=== PATIENT | female | born 1995 | race African-American/Black ===

== ENCOUNTER 2019-04-09 22:38 | Emergency (ER) | payer BC, OTHER ==
[2019-04-09] MEDS ORDERED: SODIUM CHLORIDE 0.9% 1,000 ML IV STA (22:55)
[2019-04-09 23:26] LABS: Basophils % (A) 0 %; Eosinophils # (A) 0.1 k/uL (0-0.7); Eosinophils % (A) 3 %; HCT 38.2 % (34.0-46.0); HGB 12.5 gm/dL (11.4-16.0); Lymphocytes # (A) 2.5 k/uL (1.0-4.8); Lymphocytes % (A) 48 %; MCHC 32.7 g/dL (31.0-37.0); MCV 91.6 fL (80.0-100.0); Mean Platelet Volume 8.6; Monocytes # (A) 0.3 k/uL (0-1.0); Monocytes % (A) 6 %; Neutrophils # (A) 2.2 k/uL (1.3-7.7); Neutrophils % (A) 41 %; Platelet Count 239 k/uL (150-450); RBC 4.17 m/uL (3.80-5.40); WBC 5.3 k/uL (3.8-10.6)
[2019-04-09] MEDS ORDERED: IBUPROFEN 600 MG TAB PO STA (23:33)
[2019-04-09] MEDS ORDERED: ONDANSETRON 4 MG/2 ML VIAL IVP STA (23:33)
[2019-04-09 23:34] LABS: ALT 11 U/L (9-52); AST 16 U/L (14-36); Alkaline Phosphatase 58 U/L (38-126); Anion Gap 6 mmol/L; Blood Urea Nitrogen 9 mg/dL (7-17); Calcium 9.2 mg/dL (8.4-10.2); Carbon Dioxide 24 mmol/L (22-30); Chloride 111 mmol/L (98-107); Glucose 83 mg/dL (74-99); Lipase 54 U/L (23-300); Potassium 3.9 mmol/L (3.5-5.1); Sodium 141 mmol/L (137-145); Total Bilirubin 0.4 mg/dL (0.2-1.3)
[2019-04-09 23:50] LABS: Appearance,Urine Cloudy (Clear); Bacteria,Urine Occasional /hpf; Bilirubin,Urine Negative (Negative); Blood,Urine Negative (Negative); Color,Urine Yellow; Glucose,Urine (UA) Negative (Negative); Ketones,Urine Negative (Negative); Leukocyte Esterase,Urine Moderate (Negative); Mucus,Urine Moderate /hpf; Nitrite,Urine Positive (Negative); PH, Urine 6.5 (5.0-8.0); Protein,Urine Negative (Negative); RBC,Urine 1 /hpf (0-5); Specific Gravity,Urine 1.019 (1.001-1.035); Squamous Epithelial Cell,Urine 8 /hpf (0-4); WBC,Urine 12 /hpf (0-5)
--- NOTE | 2019-04-10 00:17 | CT ---
EXAM: CT Abdomen and Pelvis With Intravenous Contrast CLINICAL HISTORY: ITS.REASON CT Reason: Pain TECHNIQUE: Axial computed tomography images of the abdomen and pelvis with intravenous contrast. This CT exam was performed using one or more of the following dose reduction techniques: automated exposure control, adjustment of the mA and/or kV according to patient size, and/or use of iterative reconstruction technique. COMPARISON: No relevant prior studies available. FINDINGS: Lung bases: Unremarkable. No mass. No consolidation. ABDOMEN: Liver: Unremarkable. No mass. Gallbladder and bile ducts: No abnormal ductal dilation or stones. Pancreas: Unremarkable. No mass. No ductal dilation. Spleen: Unremarkable. No splenomegaly. Adrenals: Unremarkable. No mass. Kidneys and ureters: Unremarkable. No solid mass. No hydronephrosis. Stomach and bowel: No obstruction. No mucosal thickening. PELVIS: Appendix: No findings to suggest acute appendicitis. Bladder: Unremarkable. No mass. Reproductive: Involuted left ovarian corpus luteum cyst measuring 2 cm. 2 additional left ovarian cysts appear to be present measuring 3 cm each. ABDOMEN and PELVIS: Intraperitoneal space: Mild free fluid in the pelvis. No free air. Bones/joints: No acute fracture. No dislocation. Soft tissues: Unremarkable. Vasculature: No abdominal aortic aneurysm. Lymph nodes: Unremarkable. No enlarged lymph nodes. IMPRESSION: 1. Involuted left ovarian corpus luteum cyst measuring 2 cm. 2 additional left ovarian cysts appear to be present measuring 3 cm each. 2. Mild free fluid in the pelvis.
--- NOTE | 2019-04-10 01:13 | ED ---
General Adult HPI - General Source: patient, RN notes reviewed, old records reviewed Mode of arrival: ambulatory Limitations: no limitations <Dc Petersen - Last Filed: 04/10/19 02:01> <Davida Ayers - Last Filed: 04/10/19 02:40> - General Chief complaint: Abdominal Pain Stated complaint: Abdominal Pain, vomiting Time Seen by Provider: 04/09/19 22:55 - History of Present Illness Initial comments: 24-year-old female patient with no pertinent past medical history presents ED 3 days of waxing and waning nausea vomiting diarrhea as well as lower quadrant abdominal pain. Patient denies any chest pain shortness of breath. Patient states that she does not believe that she is . Patient denies any other complaints at this time. Systemic: Pt denies fatigue, fever/chills, rash. Pt denies weakness, night sweats, weight loss. Neuro: Pt denies headache, visual disturbances, syncope or pre-syncope. HEENT: Pt denies ocular discharge or irritation, otalgia, rhinorrhea, pharyngitis or notable lymphadenopathy. Cardiopulmonary: Pt denies chest pain, SOB, heart palpitations, dyspnea on exertion. : Pt denies dysuria, burning w/ urination, frequency/urgency. Denies new onset urinary or bowel incontinence. MSK: Pt denies myalgia, loss of strength or function in extremities. Neuro: Pt denies new onset weakness, paresthesias. (Dc Petersen) - Related Data Previous Rx's Medication Instructions Recorded Cephalexin [Keflex] 500 mg PO Q12HR 10 Days cap 04/10/19 Allergies Allergy/AdvReac Type Severity Reaction Status Date / Time No Known Allergies Allergy Verified 04/09/19 23:14 Review of Systems ROS Other: All systems not noted in ROS Statement are negative. <Dc Petersen - Last Filed: 04/10/19 02:01> ROS Other: All systems not noted in ROS Statement are negative. <Davida Ayers - Last Filed: 04/10/19 02:40> ROS Statement: Those systems with pertinent positive or pertinent negative responses have been documented in the HPI. Past Medical History Past Medical History: No Reported History Additional Past Medical History / Comment(s): back pain History of Any Multi-Drug Resistant Organisms: None Reported Past Surgical History: No Surgical Hx Reported Past Psychological History: No Psychological Hx Reported Smoking Status: Never smoker Past Alcohol Use History: Rare Past Drug Use History: None Reported <Dc Petersen - Last Filed: 04/10/19 02:01> General Exam Limitations: no limitations <Dc Petersen - Last Filed: 04/10/19 02:01> - General Exam Comments Initial Comments: Constitutional: NAD, AOX3, Pt has pleasant affect. HEENT: NC/AT, trachea midline, neck supple, no lymphadenopathy. Posterior pharynx non erythematous, without exudates. External ears appear normal, without discharge. Mucous membranes moist. Eyes PERRLA, EOM intact. There is no scleral icterus. No pallor noted. Cardiopulmonary: RRR, no murmurs, rubs or gallops, no JVD noted. Lungs CTAB in anterior and posterior sandoval. No peripheral edema. Abdominal exam: Abdomen soft and non-distended. Abdomen mildly tender to palpation in right lower quadrant, left lower quadrant, suprapubic region. No other areas of abdominal tenderness. No guarding or rigidity. Bowel sounds active in LLQ. No hepatosplenomegaly. No ecchymosis Neuro: CN II-XII grossly intact. No nuchal rigidity. No raccon eyes, no barry sign, no hemotympanum. No cervical spinal tenderness. MSK: No posterior calf tenderness bilaterally, homans sign negative bilaterally. Posterior tibialis and radial pulse +2 bilaterally. Sensation intact in upper and lower extremities. Full active ROM in upper and lower extremities, 5/5 stregnth. (Dc Petersen) Course Vital Signs 04/09/19 04/10/19 04/10/19 22:51 00:53 02:01 Temperature 98.6 F 98.5 F Pulse Rate 62 48 L 62 Respiratory 18 16 18 Rate Blood Pressure 95/63 110/72 99/60 O2 Sat by Pulse 100 99 100 Oximetry Medical Decision Making - Lab Data Result diagrams: 04/09/19 23:09 04/09/19 23:09 <Dc Petersen - Last Filed: 04/10/19 02:01> - Lab Data Result diagrams: 04/09/19 23:09 04/09/19 23:09 <Davida Ayers - Last Filed: 04/10/19 02:40> - Medical Decision Making 24-year-old female patient with no pertinent past medical history presents ED 3 days of waxing and waning nausea vomiting diarrhea as well as lower quadrant abdominal pain. Patient denies any chest pain shortness of breath. Patient states that she does not believe that she is . Patient denies any other complaints at this time. Patient vital signs stable, afebrile. Physical exam displayed mild tenderness to palpation in right lower quadrant, left lower quadrant tenderness, suprapubic region. No other acute pathology identified. Laboratory investigations reveal nonspecific CBC, CMP. Lactic acid negative. Lipase within normal limits. UA displayed positive nitrate, positive luekocyte eterase, 12 wbc, 8 squamous. HCG negative. Will treat for possible UTI. CT abdomen pelvis displayed included left ovarian corpus luteum cyst measuring 2 cm, 2 additional to ovarian cyst appear to be present moderate increase in 3cm each. Mild free fluid in pelvis. Transvaginal ultrasound displayed left ovarian cysts measuring 3.1 cm, 2.7 cm, mild free fluid. Normal blood flow to ovarias bilaterally. Possible etiology of pain may be a ruptured ovarian cyst. Patient will be discharged with prescription for Keflex. 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 Patient will return to ER condition worsens in any way. Case discussed with Dr. Ayers. (Dc Petersen) I was available for consultation in the emergency department. The history and physical exam were done by the midlevel provider. I was consulted for this patient's care. I reviewed the case with the midlevel provider and based on their presentation of the patient, I agree with the assessment, medical decision making and plan of care as documented. Chart was dictated using [email or web address] dictation software. Attempts were made to correct any dictation errors however some typographical errors may persist. (Davida Ayers) - Lab Data Lab Results 04/09/19 04/09/19 04/09/19 Range/Units 23:09 23:09 23:09 WBC 5.3 (3.8-10.6) k/uL RBC 4.17 (3.80-5.40) m/uL Hgb 12.5 (11.4-16.0) gm/dL Hct 38.2 (34.0-46.0) % MCV 91.6 (80.0-100.0) fL MCH 30.0 (25.0-35.0) pg MCHC 32.7 (31.0-37.0) g/dL RDW 14.0 (11.5-15.5) % Plt Count 239 (150-450) k/uL Neutrophils % 41 % Lymphocytes % 48 % Monocytes % 6 % Eosinophils % 3 % Basophils % 0 % Neutrophils # 2.2 (1.3-7.7) k/uL Lymphocytes # 2.5 (1.0-4.8) k/uL Monocytes # 0.3 (0-1.0) k/uL Eosinophils # 0.1 (0-0.7) k/uL Basophils # 0.0 (0-0.2) k/uL Sodium 141 (137-145) mmol/L Potassium 3.9 (3.5-5.1) mmol/L Chloride 111 H (98-107) mmol/L Carbon Dioxide 24 (22-30) mmol/L Anion Gap 6 mmol/L BUN 9 (7-17) mg/dL Creatinine 0.61 (0.52-1.04) mg/dL Est GFR (CKD-EPI)AfAm >90 (>60 ml/min/1.73 sqM) Est GFR (CKD-EPI)NonAf >90 (>60 ml/min/1.73 sqM) Glucose 83 (74-99) mg/dL Plasma Lactic Acid Oc <0.5 L (0.7-2.0) mmol/L Calcium 9.2 (8.4-10.2) mg/dL Total Bilirubin 0.4 (0.2-1.3) mg/dL AST 16 (14-36) U/L ALT 11 (9-52) U/L Alkaline Phosphatase 58 (38-126) U/L Total Protein 7.0 (6.3-8.2) g/dL Albumin 4.0 (3.5-5.0) g/dL Lipase 54 (23-300) U/L Urine Color Urine Appearance (Clear) Urine pH (5.0-8.0) Ur Specific [place] (1.001-1.035) Urine Protein (Negative) Urine Glucose (UA) (Negative) Urine Ketones (Negative) Urine Blood (Negative) Urine Nitrite (Negative) Urine Bilirubin (Negative) Urine Urobilinogen (<2.0) mg/dL Ur Leukocyte Esterase (Negative) Urine RBC (0-5) /hpf Urine WBC (0-5) /hpf Ur Squamous Epith Cells (0-4) /hpf Urine Bacteria (None) /hpf Urine Mucus (None) /hpf Urine HCG, Qual (Not Detectd) 04/09/19 04/09/19 Range/Units 23:30 23:30 WBC (3.8-10.6) k/uL RBC (3.80-5.40) m/uL Hgb (11.4-16.0) gm/dL Hct (34.0-46.0) % MCV (80.0-100.0) fL MCH (25.0-35.0) pg MCHC (31.0-37.0) g/dL RDW (11.5-15.5) % Plt Count (150-450) k/uL Neutrophils % % Lymphocytes % % Monocytes % % Eosinophils % % Basophils % % Neutrophils # (1.3-7.7) k/uL Lymphocytes # (1.0-4.8) k/uL Monocytes # (0-1.0) k/uL Eosinophils # (0-0.7) k/uL Basophils # (0-0.2) k/uL Sodium (137-145) mmol/L Potassium (3.5-5.1) mmol/L Chloride (98-107) mmol/L Carbon Dioxide (22-30) mmol/L Anion Gap mmol/L BUN (7-17) mg/dL Creatinine (0.52-1.04) mg/dL Est GFR (CKD-EPI)AfAm (>60 ml/min/1.73 sqM) Est GFR (CKD-EPI)NonAf (>60 ml/min/1.73 sqM) Glucose (74-99) mg/dL Plasma Lactic Acid Oc (0.7-2.0) mmol/L Calcium (8.4-10.2) mg/dL Total Bilirubin (0.2-1.3) mg/dL AST (14-36) U/L ALT (9-52) U/L Alkaline Phosphatase (38-126) U/L Total Protein (6.3-8.2) g/dL Albumin (3.5-5.0) g/dL Lipase (23-300) U/L Urine Color Yellow Urine Appearance Cloudy H (Clear) Urine pH 6.5 (5.0-8.0) Ur Specific [place] 1.019 (1.001-1.035) Urine Protein Negative (Negative) Urine Glucose (UA) Negative (Negative) Urine Ketones Negative (Negative) Urine Blood Negative (Negative) Urine Nitrite Positive H (Negative) Urine Bilirubin Negative (Negative) Urine Urobilinogen 2.0 (<2.0) mg/dL Ur Leukocyte Esterase Moderate H (Negative) Urine RBC 1 (0-5) /hpf Urine WBC 12 H (0-5) /hpf Ur Squamous Epith Cells 8 H (0-4) /hpf Urine Bacteria Occasional H (None) /hpf Urine Mucus Moderate H (None) /hpf Urine HCG, Qual Not Detected (Not Detectd) Disposition Is patient prescribed a controlled substance at d/c from ED?: No <Dc Petersen - Last Filed: 04/10/19 02:01> <Davida Ayers - Last Filed: 04/10/19 02:40> Clinical Impression: UTI (urinary tract infection), Ovarian cyst Disposition: HOME SELF-CARE Condition: Stable Instructions (If sedation given, give patient instructions): Ovarian Cyst (ED), Urinary Tract Infection in Women (ED) Additional Instructions: Patient to adhere to previously discussed treatment plan and will take medication(s) as directed. Patient to follow up with PCP in 1-2 days. Patient to return to ED if symptoms do not improve. Take Medication as directed. Follow up with primary care provider and airport representative in 1-2 days. Return to ER if condition worsens in anyway. Prescriptions: Cephalexin [Keflex] 500 mg PO Q12HR 10 Days cap Referrals: Anaya Gaffney MD [Primary Care Provider] - 1-2 days
--- NOTE | 2019-04-10 01:27 | US ---
EXAM: US Pelvis, Transvaginal CLINICAL HISTORY: ITS.REASON US Reason: pain TECHNIQUE: Real-time transvaginal pelvic ultrasound (complete) with image documentation. Transvaginal imaging was used for better evaluation of the endometrium and adnexa. COMPARISON: No relevant prior studies available. FINDINGS: Uterus/cervix: Unremarkable. Normal endometrial stripe thickness. No myometrial mass. Right ovary: Unremarkable. No mass. Normal blood flow. Left ovary: Left ovarian cysts measuring 3.1 and 2.7 cm. Normal blood flow. Free fluid: Mild free fluid. Bladder: Empty bladder which cannot be evaluated with this probe. IMPRESSION: 1. Left ovarian cysts measuring 3.1 and 2.7 cm. 2. Mild free fluid.
[2019-04-10] MEDS ORDERED: CEPHALEXIN 500 MG CAP PO STA (01:45)
[2019-04-10 02:07] VITALS: BP 99/60; PULSE 62; RESP 18; TEMP 98.5
== END 2019-04-10 02:06 | disposition home or self-care (01) ==
LOC: EC 22:38
DX: N83.202 Unspecified ovarian cyst, left side (principal); N39.0 Urinary tract infection, site not specified; R11.2 Nausea with vomiting, unspecified; R19.7 Diarrhea, unspecified; Z32.02 Encounter for pregnancy test, result negative
CPT/HCPCS: 36415; 74177; 76830; 80053; 81001; 81025; 83605; 83690; 85025; 93975; 96361; 96374; 99284

== ENCOUNTER 2019-04-21 14:57 | Emergency (ER) | payer BC ==
[2019-04-21 15:10] VITALS: TEMP 98.2
[2019-04-21] MEDS ORDERED: MORPHINE SULFATE 4 MG/ML SYRINGE IV STA (15:50)
[2019-04-21] MEDS ORDERED: ONDANSETRON 4 MG/2 ML VIAL IVP STA (15:50)
[2019-04-21] MEDS ORDERED: SODIUM CHLORIDE 0.9% 1,000 ML IV STA ×2 (15:50)
[2019-04-21] MEDS ORDERED: KETOROLAC 30 MG/ML 1 ML VIAL IVP STA (15:50)
--- NOTE | 2019-04-21 16:00 | ED ---
Abdominal Pain HPI - General Source: patient, RN notes reviewed, old records reviewed Mode of arrival: ambulatory Limitations: no limitations <Julissa Craig - Last Filed: 04/21/19 17:43> <Logan Joe - Last Filed: 04/21/19 18:38> - General Chief Complaint: Abdominal Pain Stated Complaint: Cyst on ovaries Time Seen by Provider: 04/21/19 15:32 - History of Present Illness Initial Comments: Patient is a 24-year-old female who presents return today for evaluation with complaints of severe left-sided lower abdominal pain. She was sinus with left- sided ovarian cyst 2 weeks ago. 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 Patient states that the pain became more severe last night into this morning. She's had episodes of vomiting. Patient appears in moderate discomfort. Patient relates that she's had no significant past medical history aortic no other abdominal surgeries. She denies chance of . She reports that she is being treated for urinary tract infection at this time. She's been on antibiotics for that as well as for bacterial vaginosis. (Julissa He) - Related Data Home Medications Medication Instructions Recorded Confirmed metroNIDAZOLE [Flagyl] 500 mg PO BID 04/21/19 04/21/19 Previous Rx's Medication Instructions Recorded Cephalexin [Keflex] 500 mg PO Q12HR 10 Days cap 04/10/19 Allergies Allergy/AdvReac Type Severity Reaction Status Date / Time No Known Allergies Allergy Verified 04/21/19 15:52 Review of Systems ROS Other: All systems not noted in ROS Statement are negative. <Julissa Craig - Last Filed: 04/21/19 17:43> ROS Other: All systems not noted in ROS Statement are negative. <Logan Joe - Last Filed: 04/21/19 18:38> ROS Statement: Those systems with pertinent positive or pertinent negative responses have been documented in the HPI. Past Medical History Past Medical History: No Reported History Additional Past Medical History / Comment(s): back pain History of Any Multi-Drug Resistant Organisms: None Reported Past Surgical History: No Surgical Hx Reported Past Psychological History: No Psychological Hx Reported Smoking Status: Never smoker Past Alcohol Use History: Rare Past Drug Use History: None Reported <Julissa Craig - Last Filed: 04/21/19 17:43> General Exam Limitations: no limitations General appearance: alert Head exam: Present: atraumatic, normocephalic, normal inspection Eye exam: Present: normal appearance, PERRL, EOMI. Absent: scleral icterus, conjunctival injection, periorbital swelling ENT exam: Present: normal exam, mucous membranes moist Neck exam: Present: normal inspection. Absent: tenderness, meningismus, lymphadenopathy Respiratory exam: Present: normal lung sounds bilaterally. Absent: respiratory distress, wheezes, rales, rhonchi, stridor Cardiovascular Exam: Present: regular rate, normal rhythm, normal heart sounds. Absent: systolic murmur, diastolic murmur, rubs, gallop, clicks GI/Abdominal exam: Present: soft, normal bowel sounds. Absent: distended, tenderness, guarding, rebound, rigid External exam: Present: normal external exam Speculum exam: Present: normal speculum exam By manual exam: Present: normal by manual exam Extremities exam: Present: normal inspection, full ROM, normal capillary refill. Absent: tenderness, pedal edema, joint swelling, calf tenderness Back exam: Present: normal inspection Neurological exam: Present: alert, oriented X3, CN II-XII intact Psychiatric exam: Present: normal affect, normal mood <Julissa Craig - Last Filed: 04/21/19 17:43> - General Exam Comments Initial Comments: 24-year-old female. Alert and oriented. No distress. (Julissa Craig) Course Vital Signs 04/21/19 04/21/19 04/21/19 15:08 17:30 18:26 Temperature 98.2 F Pulse Rate 80 70 56 L Respiratory 16 18 18 Rate Blood Pressure 108/64 107/62 95/55 O2 Sat by Pulse 100 99 100 Oximetry Medical Decision Making - Lab Data Result diagrams: 04/21/19 17:07 04/21/19 17:07 <Julissa Craig - Last Filed: 04/21/19 17:43> - Lab Data Result diagrams: 04/21/19 17:07 04/21/19 17:07 <Logan Joe - Last Filed: 04/21/19 18:38> - Medical Decision Making Patient is a 24-year-old female with a known diagnosis of left ovarian cyst. She presents weren't certain if worsening left-sided abdominal pain, episodes of vomiting. She appeared to be in moderate discomfort, writhing around the bed. Patient states that she is followed up with Dr. Jorge after the diagnosis of ovarian cysts. At this time she also is being treated for urinary tract infection. Patient has any fevers, does report chills. And dialysis and she does have significant tenderness over the left lower quadrant. IV was established blood work obtained. Blood work was reviewed relatively unremarkable. Hemoglobin is stable. We did repeat a transvaginal ultrasound to rule out possibility of ovarian torsion. (Julissa Craig) Ultrasound performed, no evidence to inversion, there is multiple cysts on both ovaries. Patient reevaluated if she is resting comfortable, pain control. She is eager for discharge. 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 (Logan Joe) - Lab Data Lab Results 04/21/19 04/21/19 04/21/19 Range/Units 17:07 17:07 17:07 WBC 7.8 (3.8-10.6) k/uL RBC 4.08 (3.80-5.40) m/uL Hgb 12.2 (11.4-16.0) gm/dL Hct 38.1 (34.0-46.0) % MCV 93.4 (80.0-100.0) fL MCH 29.9 (25.0-35.0) pg MCHC 32.0 (31.0-37.0) g/dL RDW 13.8 (11.5-15.5) % Plt Count 270 (150-450) k/uL Neutrophils % 69 % Lymphocytes % 24 % Monocytes % 3 % Eosinophils % 3 % Basophils % 0 % Neutrophils # 5.3 (1.3-7.7) k/uL Lymphocytes # 1.9 (1.0-4.8) k/uL Monocytes # 0.2 (0-1.0) k/uL Eosinophils # 0.2 (0-0.7) k/uL Basophils # 0.0 (0-0.2) k/uL PT (9.0-12.0) sec INR (<1.2) APTT (22.0-30.0) sec Sodium 138 (137-145) mmol/L Potassium 3.9 (3.5-5.1) mmol/L Chloride 111 H (98-107) mmol/L Carbon Dioxide 21 L (22-30) mmol/L Anion Gap 6 mmol/L BUN 12 (7-17) mg/dL Creatinine 0.60 (0.52-1.04) mg/dL Est GFR (CKD-EPI)AfAm >90 (>60 ml/min/1.73 sqM) Est GFR (CKD-EPI)NonAf >90 (>60 ml/min/1.73 sqM) Glucose 73 L (74-99) mg/dL Calcium 9.4 (8.4-10.2) mg/dL Total Bilirubin 0.7 (0.2-1.3) mg/dL AST 17 (14-36) U/L ALT 14 (9-52) U/L Alkaline Phosphatase 58 (38-126) U/L Total Protein 7.5 (6.3-8.2) g/dL Albumin 4.3 (3.5-5.0) g/dL Amylase 50 (30-110) U/L Lipase 42 (23-300) U/L Urine Color Yellow Urine Appearance Clear (Clear) Urine pH 6.5 (5.0-8.0) Ur Specific [place] 1.018 (1.001-1.035) Urine Protein Negative (Negative) Urine Glucose (UA) Negative (Negative) Urine Ketones Trace H (Negative) Urine Blood Negative (Negative) Urine Nitrite Negative (Negative) Urine Bilirubin Negative (Negative) Urine Urobilinogen 2.0 (<2.0) mg/dL Ur Leukocyte Esterase Large H (Negative) Urine RBC 1 (0-5) /hpf Urine WBC 3 (0-5) /hpf Ur Squamous Epith Cells 9 H (0-4) /hpf Urine Bacteria Rare H (None) /hpf Urine Mucus Rare H (None) /hpf 04/21/ Range/Units 17:26 WBC (3.8-10.6) k/uL RBC (3.80-5.40) m/uL Hgb (11.4-16.0) gm/dL Hct (34.0-46.0) % MCV (80.0-100.0) fL MCH (25.0-35.0) pg MCHC (31.0-37.0) g/dL RDW (11.5-15.5) % Plt Count (150-450) k/uL Neutrophils % % Lymphocytes % % Monocytes % % Eosinophils % % Basophils % % Neutrophils # (1.3-7.7) k/uL Lymphocytes # (1.0-4.8) k/uL Monocytes # (0-1.0) k/uL Eosinophils # (0-0.7) k/uL Basophils # (0-0.2) k/uL PT 11.0 (9.0-12.0) sec INR 1.0 (<1.2) APTT 21.2 L (22.0-30.0) sec Sodium (137-145) mmol/L Potassium (3.5-5.1) mmol/L Chloride (98-107) mmol/L Carbon Dioxide (22-30) mmol/L Anion Gap mmol/L BUN (7-17) mg/dL Creatinine (0.52-1.04) mg/dL Est GFR (CKD-EPI)AfAm (>60 ml/min/1.73 sqM) Est GFR (CKD-EPI)NonAf (>60 ml/min/1.73 sqM) Glucose (74-99) mg/dL Calcium (8.4-10.2) mg/dL Total Bilirubin (0.2-1.3) mg/dL AST (14-36) U/L ALT (9-52) U/L Alkaline Phosphatase (38-126) U/L Total Protein (6.3-8.2) g/dL Albumin (3.5-5.0) g/dL Amylase (30-110) U/L Lipase (23-300) U/L Urine Color Urine Appearance (Clear) Urine pH (5.0-8.0) Ur Specific [place] (1.001-1.035) Urine Protein (Negative) Urine Glucose (UA) (Negative) Urine Ketones (Negative) Urine Blood (Negative) Urine Nitrite (Negative) Urine Bilirubin (Negative) Urine Urobilinogen (<2.0) mg/dL Ur Leukocyte Esterase (Negative) Urine RBC (0-5) /hpf Urine WBC (0-5) /hpf Ur Squamous Epith Cells (0-4) /hpf Urine Bacteria (None) /hpf Urine Mucus (None) /hpf Disposition <Julissa Craig - Last Filed: 04/21/19 17:43> Is patient prescribed a controlled substance at d/c from ED?: No Time of Disposition: 18:38 <Logan Joe - Last Filed: 04/21/19 18:38> Clinical Impression: Ovarian cyst, Abdominal pain Disposition: HOME SELF-CARE Condition: Good Instructions (If sedation given, give patient instructions): Abdominal Pain (ED ), Ovarian Cyst (ED) Referrals: Anaya Gaffney MD [Primary Care Provider] - 1-2 days
[2019-04-21 17:17] LABS: Basophils % (A) 0 %; Eosinophils # (A) 0.2 k/uL (0-0.7); Eosinophils % (A) 3 %; HCT 38.1 % (34.0-46.0); HGB 12.2 gm/dL (11.4-16.0); Lymphocytes # (A) 1.9 k/uL (1.0-4.8); Lymphocytes % (A) 24 %; MCH 29.9 pg (25.0-35.0); MCV 93.4 fL (80.0-100.0); Mean Platelet Volume 7.9; Monocytes # (A) 0.2 k/uL (0-1.0); Monocytes % (A) 3 %; Neutrophils # (A) 5.3 k/uL (1.3-7.7); Neutrophils % (A) 69 %; Platelet Count 270 k/uL (150-450); RBC 4.08 m/uL (3.80-5.40); RDW 13.8 % (11.5-15.5); WBC 7.8 k/uL (3.8-10.6)
[2019-04-21 17:24] LABS: Appearance,Urine Clear (Clear); Bacteria,Urine Rare /hpf; Bilirubin,Urine Negative (Negative); Blood,Urine Negative (Negative); Color,Urine Yellow; Glucose,Urine (UA) Negative (Negative); Ketones,Urine Trace (Negative); Leukocyte Esterase,Urine Large (Negative); Mucus,Urine Rare /hpf; Nitrite,Urine Negative (Negative); PH, Urine 6.5 (5.0-8.0); Protein,Urine Negative (Negative); RBC,Urine 1 /hpf (0-5); Specific Gravity,Urine 1.018 (1.001-1.035); Squamous Epithelial Cell,Urine 9 /hpf (0-4); WBC,Urine 3 /hpf (0-5)
[2019-04-21 17:29] LABS: ALT 14 U/L (9-52); AST 17 U/L (14-36); African American GFR (CKD) >90 (>60 ml/min/1.73 sqM); Albumin 4.3 g/dL (3.5-5.0); Alkaline Phosphatase 58 U/L (38-126); Amylase 50 U/L (30-110); Anion Gap 6 mmol/L; Blood Urea Nitrogen 12 mg/dL (7-17); Calcium 9.4 mg/dL (8.4-10.2); Carbon Dioxide 21 mmol/L (22-30); Chloride 111 mmol/L (98-107); Glucose 73 mg/dL (74-99); Lipase 42 U/L (23-300); Potassium 3.9 mmol/L (3.5-5.1); Sodium 138 mmol/L (137-145); Total Bilirubin 0.7 mg/dL (0.2-1.3); Total Protein 7.5 g/dL (6.3-8.2)
[2019-04-21 17:31] VITALS: RESP 18
[2019-04-21 18:03] LABS: Partial Thromboplastin Time 21.2 sec (22.0-30.0)
--- NOTE | 2019-04-21 18:24 | US ---
EXAMINATION TYPE: US transvaginal DATE OF EXAM: 04/21/2019 COMPARISON: US CLINICAL HISTORY: Pain, recent left cyst, worse pain, vomiting. Pelvic pain x 2 days. Recent left ova juan cyst. Vomiting. 1 , D and C. . TECHNIQUE: Transvaginal (TV). Date of LMP: 04/05/2019 EXAM MEASUREMENTS: Uterus: 8.2 x 4.9 x 3.6 cm Endometrial Stripe: 0.65 cm Right Ovary: 3.1 x 2.4 x 2.1 cm Left Ovary: 3.5 x 1.8 x 2.1 cm 1. Uterus: Anteverted appears wnl 2. Endometrium: appears wnl 3. Right Ovary: multiple anechoic areas seen, largest measurin.0 x 1.2 x 0.8 cm. 4. Left Ovary: multiple anechoic areas seen, largest measurin.3 x 0.7 x 1.1 cm. Spectral, color and waveform doppler imaging shows good arterial and venous flow within the ovaries ; there is no evidence for ovarian torsion. 5. Bilateral Adnexa: appears wnl 6. Posterior cul-de-sac: fluid seen. IMPRESSION: Small amount of free fluid in the cul-de-sac could be physiologic. No evidence of ovarian torsion. Normal uterus and endometrium.
[2019-04-21 18:28] VITALS: BP 95/55; PULSE 56
[2019-04-22 15:19] LABS: C. trachomatis,PCR Negative (Neg,Equiv); Chlamydia trachomatis Source Vagina; N. gonorrhoeae,PCR Negative (Neg,Equiv); Neisseria Source Vagina
== END 2019-04-21 18:57 | disposition home or self-care (01) ==
LOC: EC 14:57
DX: N83.202 Unspecified ovarian cyst, left side (principal); N83.201 Unspecified ovarian cyst, right side; R11.10 Vomiting, unspecified; N39.0 Urinary tract infection, site not specified; N76.0 Acute vaginitis
CPT/HCPCS: 36415; 80053; 82150; 83690; 85025; 85610; 85730; 81001; 81025; 87808; 87491; 87591; 87070; 87205; 93975; 76830; 99285; 96374; 96375 ×2; J2270; J2405; J1885

== ENCOUNTER 2019-09-07 02:49 | Emergency (ER) | payer BC, OTHER ==
[2019-09-07] MEDS ORDERED: SODIUM CHLORIDE 0.9% 1,000 ML IV STA (03:11)
[2019-09-07] MEDS ORDERED: KETOROLAC 30 MG/ML 1 ML VIAL IVP STA (03:11)
[2019-09-07] MEDS ORDERED: ONDANSETRON 4 MG/2 ML VIAL IVP STA (03:11)
--- NOTE | 2019-09-07 03:18 | ED ---
Nausea/Vomiting/Diarrhea HPI - General Chief complaint: Nausea/Vomiting/Diarrhea Stated complaint: NVD Time Seen by Provider: 09/07/19 03:01 Source: patient Mode of arrival: ambulatory Limitations: no limitations - History of Present Illness Initial comments: This patient is 24-year-old woman presenting to be evaluated for a constellation of symptoms that started yesterday in the morning with diffuse abdominal pain. She states that symptoms worsened and then she also was having nausea and then towards the afternoon developed vomiting and diarrhea as well. She states she has had probably around 4 episodes of vomiting. She has not noted blood or coffee-ground material. She believes she has probably had about 6 episodes of diarrhea without seeing any tarry stool or blood. Patient states that when the symptoms continued through tonight she felt she should be seen here. Pain is constant, cramping and aching, moderate to severe in intensity. She has not noted worsening or relieving factors. No fever or chills. She has not noted any change in urination. Her last menstrual period ended on and she states was normal. MD complaint: nausea, vomiting, abdominal pain Onset/Timin -: days(s) Description of Vomiting: food contents Description of Diarrhea: water Associated Abdominal Pain: Yes Location: LLQ, RLQ Radiation: none Severity: moderate Quality: cramping, aching Consistency: constant Improves with: none Worsens with: none Associated Symptoms: nausea/vomiting - Related Data Previous Rx's Medication Instructions Recorded Ondansetron Odt [Zofran ODT] 4 mg PO Q8HR PRN #10 tab 09/07/19 Allergies Allergy/AdvReac Type Severity Reaction Status Date / Time No Known Allergies Allergy Verified 04/21/19 15:52 Review of Systems ROS Statement: Those systems with pertinent positive or pertinent negative responses have been documented in the HPI. ROS Other: All systems not noted in ROS Statement are negative. Constitutional: Denies: fever, chills Respiratory: Denies: cough, dyspnea Cardiovascular: Denies: chest pain, palpitations Gastrointestinal: Reports: abdominal pain, nausea, vomiting, diarrhea. Denies: hematemesis, melena, hematochezia Genitourinary: Denies: dysuria, frequency, hematuria, discharge, abnormal menses Musculoskeletal: Denies: back pain Skin: Denies: rash Neurological: Denies: headache, weakness Past Medical History Past Medical History: No Reported History Additional Past Medical History / Comment(s): back pain History of Any Multi-Drug Resistant Organisms: None Reported Past Surgical History: No Surgical Hx Reported Additional Past Surgical History / Comment(s): D&C Past Psychological History: No Psychological Hx Reported Smoking Status: Never smoker Past Alcohol Use History: Rare Past Drug Use History: None Reported General Exam Limitations: no limitations General appearance: alert, in no apparent distress Head exam: Present: atraumatic, normocephalic Eye exam: Present: normal appearance. Absent: scleral icterus, conjunctival injection ENT exam: Present: normal oropharynx Respiratory exam: Present: normal lung sounds bilaterally. Absent: respiratory distress, wheezes, rales, rhonchi, stridor Cardiovascular Exam: Present: regular rate, normal rhythm, normal heart sounds. Absent: systolic murmur, diastolic murmur, rubs, gallop GI/Abdominal exam: Present: soft. Absent: distended, tenderness, guarding, rebound, rigid, mass, pulsatile mass, hernia Extremities exam: Present: normal inspection, normal capillary refill. Absent: pedal edema, calf tenderness Back exam: Present: normal inspection. Absent: CVA tenderness (R), CVA tenderness (L) Neurological exam: Present: alert Skin exam: Present: warm, dry, intact, normal color. Absent: rash Course Vital Signs 09/07/19 09/07/19 02:54 03:31 Temperature 97.9 F Pulse Rate 85 87 Respiratory 20 18 Rate Blood Pressure 98/64 117/81 O2 Sat by Pulse 100 98 Oximetry Medical Decision Making - Lab Data Result diagrams: 09/07/19 03:21 09/07/19 03:21 Lab Results 09/07/19 09/07/19 09/07/19 Range/Units 03:01 03:01 03:21 WBC (3.8-10.6) k/uL RBC (3.80-5.40) m/uL Hgb (11.4-16.0) gm/dL Hct (34.0-46.0) % MCV (80.0-100.0) fL MCH (25.0-35.0) pg MCHC (31.0-37.0) g/dL RDW (11.5-15.5) % Plt Count (150-450) k/uL Neutrophils % % Lymphocytes % % Monocytes % % Eosinophils % % Basophils % % Neutrophils # (1.3-7.7) k/uL Lymphocytes # (1.0-4.8) k/uL Monocytes # (0-1.0) k/uL Eosinophils # (0-0.7) k/uL Basophils # (0-0.2) k/uL Sodium 139 (137-145) mmol/L Potassium 3.8 (3.5-5.1) mmol/L Chloride 111 H (98-107) mmol/L Carbon Dioxide 20 L (22-30) mmol/L Anion Gap 8 mmol/L BUN 10 (7-17) mg/dL Creatinine 0.51 L (0.52-1.04) mg/dL Est GFR (CKD-EPI)AfAm >90 (>60 ml/min/1.73 sqM) Est GFR (CKD-EPI)NonAf >90 (>60 ml/min/1.73 sqM) Glucose 86 (74-99) mg/dL Calcium 8.8 (8.4-10.2) mg/dL Total Bilirubin 0.8 (0.2-1.3) mg/dL AST 23 (14-36) U/L ALT 22 (9-52) U/L Alkaline Phosphatase 52 (38-126) U/L C-Reactive Protein 11.9 H (<10.0) mg/L Total Protein 7.3 (6.3-8.2) g/dL Albumin 3.9 (3.5-5.0) g/dL Amylase 46 (30-110) U/L Lipase 35 (23-300) U/L Urine Color Yellow Urine Appearance Cloudy H (Clear) Urine pH 6.0 (5.0-8.0) Ur Specific [place] 1.033 (1.001-1.035) Urine Protein Trace H (Negative) Urine Glucose (UA) Negative (Negative) Urine Ketones 1+ H (Negative) Urine Blood Negative (Negative) Urine Nitrite Negative (Negative) Urine Bilirubin Negative (Negative) Urine Urobilinogen 6.0 (<2.0) mg/dL Ur Leukocyte Esterase Negative (Negative) Urine WBC 2 (0-5) /hpf Ur Squamous Epith Cells 12 H (0-4) /hpf Urine Mucus Many H (None) /hpf Urine HCG, Qual Not Detected (Not Detectd) 09/07/19 Range/Units 03:21 WBC 5.1 (3.8-10.6) k/uL RBC 4.12 (3.80-5.40) m/uL Hgb 12.8 (11.4-16.0) gm/dL Hct 38.2 (34.0-46.0) % MCV 92.8 (80.0-100.0) fL MCH 31.2 (25.0-35.0) pg MCHC 33.6 (31.0-37.0) g/dL RDW 12.5 (11.5-15.5) % Plt Count 225 (150-450) k/uL Neutrophils % 75 % Lymphocytes % 16 % Monocytes % 6 % Eosinophils % 1 % Basophils % 0 % Neutrophils # 3.8 (1.3-7.7) k/uL Lymphocytes # 0.8 L (1.0-4.8) k/uL Monocytes # 0.3 (0-1.0) k/uL Eosinophils # 0.1 (0-0.7) k/uL Basophils # 0.0 (0-0.2) k/uL Sodium (137-145) mmol/L Potassium (3.5-5.1) mmol/L Chloride (98-107) mmol/L Carbon Dioxide (22-30) mmol/L Anion Gap mmol/L BUN (7-17) mg/dL Creatinine (0.52-1.04) mg/dL Est GFR (CKD-EPI)AfAm (>60 ml/min/1.73 sqM) Est GFR (CKD-EPI)NonAf (>60 ml/min/1.73 sqM) Glucose (74-99) mg/dL Calcium (8.4-10.2) mg/dL Total Bilirubin (0.2-1.3) mg/dL AST (14-36) U/L ALT (9-52) U/L Alkaline Phosphatase (38-126) U/L C-Reactive Protein (<10.0) mg/L Total Protein (6.3-8.2) g/dL Albumin (3.5-5.0) g/dL Amylase (30-110) U/L Lipase (23-300) U/L Urine Color Urine Appearance (Clear) Urine pH (5.0-8.0) Ur Specific [place] (1.001-1.035) Urine Protein (Negative) Urine Glucose (UA) (Negative) Urine Ketones (Negative) Urine Blood (Negative) Urine Nitrite (Negative) Urine Bilirubin (Negative) Urine Urobilinogen (<2.0) mg/dL Ur Leukocyte Esterase (Negative) Urine WBC (0-5) /hpf Ur Squamous Epith Cells (0-4) /hpf Urine Mucus (None) /hpf Urine HCG, Qual (Not Detectd) Disposition Clinical Impression: Vomiting and diarrhea Disposition: HOME SELF-CARE Condition: Good Instructions (If sedation given, give patient instructions): Acute Nausea and Vomiting (ED) Prescriptions: Ondansetron Odt [Zofran ODT] 4 mg PO Q8HR PRN #10 tab PRN Reason: Nausea Is patient prescribed a controlled substance at d/c from ED?: No Referrals: Anaya Gaffney MD [Primary Care Provider] - 1-2 days
[2019-09-07 03:38] LABS: Basophils % (A) 0 %; Eosinophils # (A) 0.1 k/uL (0-0.7); Eosinophils % (A) 1 %; HCT 38.2 % (34.0-46.0); HGB 12.8 gm/dL (11.4-16.0); Lymphocytes # (A) 0.8 k/uL (1.0-4.8); Lymphocytes % (A) 16 %; MCH 31.2 pg (25.0-35.0); MCHC 33.6 g/dL (31.0-37.0); MCV 92.8 fL (80.0-100.0); Mean Platelet Volume 6.5; Monocytes # (A) 0.3 k/uL (0-1.0); Monocytes % (A) 6 %; Neutrophils # (A) 3.8 k/uL (1.3-7.7); Neutrophils % (A) 75 %; Platelet Count 225 k/uL (150-450); RBC 4.12 m/uL (3.80-5.40); RDW 12.5 % (11.5-15.5); WBC 5.1 k/uL (3.8-10.6)
[2019-09-07 03:42] LABS: Appearance,Urine Cloudy (Clear); Bilirubin,Urine Negative (Negative); Blood,Urine Negative (Negative); Color,Urine Yellow; Glucose,Urine (UA) Negative (Negative); Ketones,Urine 1+ (Negative); Leukocyte Esterase,Urine Negative (Negative); Mucus,Urine Many /hpf; Nitrite,Urine Negative (Negative); Protein,Urine Trace (Negative); Specific Gravity,Urine 1.033 (1.001-1.035); Squamous Epithelial Cell,Urine 12 /hpf (0-4); WBC,Urine 2 /hpf (0-5)
[2019-09-07 03:56] LABS: African American GFR (CKD) >90 (>60 ml/min/1.73 sqM); Albumin 3.9 g/dL (3.5-5.0); Amylase 46 U/L (30-110); Anion Gap 8 mmol/L; Blood Urea Nitrogen 10 mg/dL (7-17); C Reactive Protein 11.9 mg/L (<10.0); Calcium 8.8 mg/dL (8.4-10.2); Carbon Dioxide 20 mmol/L (22-30); Chloride 111 mmol/L (98-107); Glucose 86 mg/dL (74-99); Sodium 139 mmol/L (137-145); Total Bilirubin 0.8 mg/dL (0.2-1.3); Total Protein 7.3 g/dL (6.3-8.2)
[2019-09-07 04:05] LABS: ALT 22 U/L (9-52); AST 23 U/L (14-36); Alkaline Phosphatase 52 U/L (38-126); Potassium 3.8 mmol/L (3.5-5.1)
[2019-09-07 05:24] VITALS: BP 100/73; PULSE 83; RESP 14; TEMP 98.1
== END 2019-09-07 05:23 | disposition home or self-care (01) ==
LOC: EC 02:49
DX: R11.10 Vomiting, unspecified (principal); R19.7 Diarrhea, unspecified; R10.84 Generalized abdominal pain; R10.31 Right lower quadrant pain; R10.32 Left lower quadrant pain; Z32.02 Encounter for pregnancy test, result negative
CPT/HCPCS: 36415; 80053; 82150; 83690; 85025; 86140; 81001; 81025; 99284; 96374; 96375; 96361; J2405; J1885

== ENCOUNTER 2020-07-09 23:43 | Emergency (ER) | payer OTHER ==
[2020-07-10] MEDS ORDERED: MORPHINE SULFATE 4 MG/ML SYRINGE IV STA (00:12)
[2020-07-10] MEDS ORDERED: SODIUM CHLORIDE 0.9% 1,000 ML IV ONE (00:12)
[2020-07-10] MEDS ORDERED: ONDANSETRON 4 MG/2 ML VIAL IVP STA (00:12)
--- NOTE | 2020-07-10 00:18 | ED ---
Abdominal Pain HPI - General Chief Complaint: Abdominal Pain Stated Complaint: Abdominal Pain Time Seen by Provider: 07/09/20 23:57 Source: patient Mode of arrival: ambulatory Limitations: no limitations - History of Present Illness Initial Comments: This patient is a 25-year-old woman who presents with complaint of low abdominal pain that radiates to the back, nausea and vomiting and diarrhea. The patient states that this is been going on nearly a week now. She had been seen and admitted at [facility] on Saturday, being discharged on , with diagnosis of "kidney infection." Patient states she had also been given prescription for to continue Flagyl. She states that she started having the pain and vomiting yesterday and then wasn't able to keep down her medication for 24 hours. This afternoon she did go to [facility] hours she states they did not give her much relief. They tried a dose of ketorolac with out much change. Patient states she has had greater than 5 episodes of vomiting today not seeing any blood or coffee-ground emesis. She has had 2 or 3 loose bowel movements no blood or dark tarry stool. Unknown questionable her last period, patient states she had a miscarriage approximately 2 weeks ago and was seen by her trapeze artist(Dr. Holden) at [facility]. She believes she was approximally 3-4 weeks . MD Complaint: abdominal pain -: days(s) Location: suprapubic Radiation: back Migration to: no migration Severity: severe Quality: cramping, aching Improves With: nothing Worsens With: nothing Associated Symptoms: nausea, vomiting, diarrhea - Related Data Patient : No Previous Rx's Medication Instructions Recorded Ondansetron Odt [Zofran ODT] 4 mg PO Q8HR PRN #10 tab 09/07/19 Ondansetron Odt [Zofran ODT] 4 mg PO Q8HR PRN #10 tab 07/10/20 Allergies Allergy/AdvReac Type Severity Reaction Status Date / Time No Known Allergies Allergy Verified 07/09/20 23:54 Review of Systems ROS Statement: Those systems with pertinent positive or pertinent negative responses have been documented in the HPI. ROS Other: All systems not noted in ROS Statement are negative. Constitutional: Denies: fever, chills, weakness Respiratory: Denies: cough, dyspnea Cardiovascular: Denies: chest pain, palpitations, dyspnea on exertion Gastrointestinal: Reports: as per HPI, abdominal pain, nausea, vomiting, diarrhea. Denies: constipation, hematemesis, melena, hematochezia Genitourinary: Reports: as per HPI, discharge. Denies: dysuria, frequency, hematuria, dyspareunia Musculoskeletal: Reports: as per HPI, back pain Skin: Denies: rash Neurological: Denies: weakness, numbness Past Medical History Past Medical History: No Reported History Additional Past Medical History / Comment(s): back pain History of Any Multi-Drug Resistant Organisms: None Reported Past Surgical History: No Surgical Hx Reported Additional Past Surgical History / Comment(s): D&C Past Psychological History: No Psychological Hx Reported Smoking Status: Never smoker Past Alcohol Use History: Rare Past Drug Use History: None Reported General Exam Limitations: no limitations General appearance: alert, in no apparent distress Head exam: Present: atraumatic, normocephalic Eye exam: Present: normal appearance. Absent: scleral icterus, conjunctival injection ENT exam: Present: mucous membranes dry Neck exam: Present: normal inspection Respiratory exam: Present: normal lung sounds bilaterally. Absent: respiratory distress, wheezes, rales, rhonchi, stridor Cardiovascular Exam: Present: regular rate, normal rhythm, normal heart sounds. Absent: systolic murmur, diastolic murmur, rubs, gallop GI/Abdominal exam: Present: soft, tenderness (Lower abdominal tenderness without rebound or guarding), normal bowel sounds. Absent: distended, guarding, rebound, rigid, mass, pulsatile mass, hernia Extremities exam: Present: normal inspection, normal capillary refill. Absent: pedal edema, calf tenderness Back exam: Present: normal inspection. Absent: CVA tenderness (R), CVA tenderness (L) Neurological exam: Present: alert Skin exam: Present: warm, dry, intact, normal color. Absent: rash Course Vital Signs 07/09/20 23:51 Temperature 99.1 F Pulse Rate 63 Respiratory 26 H Rate Blood Pressure 121/58 O2 Sat by Pulse 99 Oximetry Medical Decision Making - Medical Decision Making Patient is 25-year-old woman with nausea vomiting and low abdominal pain. She did have relief of her pain and vomiting following medications. Following some ice chips she did have a little bit of nausea recur and she is given additional anti-medic. We discussed further workup of the abdominal pain and at this point patient is declining gynecologic exam she will follow with Dr. Holden. We discussed concerns of missing possible tubal infection, cervicitis, TOA, but suspicion is somewhat lower as the patient has had resolution of her pain. Also discussed possibility of appendicitis but again patient has had resolution of pain and feeling better. In addition there is not significant leukocytosis or fever. she will return should any of this recur. - Lab Data Result diagrams: 07/10/20 00:39 07/10/20 00:39 Lab Results 07/10/20 07/10/20 07/10/20 Range/Units 00:39 00:39 00:39 WBC 6.5 (3.8-10.6) k/uL RBC 4.30 (3.80-5.40) m/uL Hgb 13.1 (11.4-16.0) gm/dL Hct 39.9 (34.0-46.0) % MCV 92.8 (80.0-100.0) fL MCH 30.4 (25.0-35.0) pg MCHC 32.8 (31.0-37.0) g/dL RDW 13.0 (11.5-15.5) % Plt Count 233 (150-450) k/uL Neutrophils % 85 % Lymphocytes % 10 % Monocytes % 2 % Eosinophils % 2 % Basophils % 0 % Neutrophils # 5.6 (1.3-7.7) k/uL Lymphocytes # 0.6 L (1.0-4.8) k/uL Monocytes # 0.1 (0-1.0) k/uL Eosinophils # 0.2 (0-0.7) k/uL Basophils # 0.0 (0-0.2) k/uL Sodium 137 (137-145) mmol/L Potassium 3.8 (3.5-5.1) mmol/L Chloride 111 H (98-107) mmol/L Carbon Dioxide 17 L (22-30) mmol/L Anion Gap 9 mmol/L BUN 4 L (7-17) mg/dL Creatinine 0.60 (0.52-1.04) mg/dL Est GFR (CKD-EPI)AfAm >90 (>60 ml/min/1.73 sqM) Est GFR (CKD-EPI)NonAf >90 (>60 ml/min/1.73 sqM) Glucose 118 H (74-99) mg/dL Plasma Lactic Acid Oc 1.7 (0.7-2.0) mmol/L Calcium 9.0 (8.4-10.2) mg/dL Total Bilirubin 0.7 (0.2-1.3) mg/dL AST 23 (14-36) U/L ALT 14 (4-34) U/L Alkaline Phosphatase 50 (38-126) U/L Total Protein 7.2 (6.3-8.2) g/dL Albumin 4.2 (3.5-5.0) g/dL Amylase 42 (30-110) U/L Lipase 56 (23-300) U/L Urine Color Urine Appearance (Clear) Urine pH (5.0-8.0) Ur Specific [place] (1.001-1.035) Urine Protein (Negative) Urine Glucose (UA) (Negative) Urine Ketones (Negative) Urine Blood (Negative) Urine Nitrite (Negative) Urine Bilirubin (Negative) Urine Urobilinogen (<2.0) mg/dL Ur Leukocyte Esterase (Negative) Urine RBC (0-5) /hpf Urine WBC (0-5) /hpf Ur Squamous Epith Cells (0-4) /hpf Urine Mucus (None) /hpf Urine HCG, Qual (Not Detectd) 07/10/20 07/10/20 Range/Units 01:33 01:33 WBC (3.8-10.6) k/uL RBC (3.80-5.40) m/uL Hgb (11.4-16.0) gm/dL Hct (34.0-46.0) % MCV (80.0-100.0) fL MCH (25.0-35.0) pg MCHC (31.0-37.0) g/dL RDW (11.5-15.5) % Plt Count (150-450) k/uL Neutrophils % % Lymphocytes % % Monocytes % % Eosinophils % % Basophils % % Neutrophils # (1.3-7.7) k/uL Lymphocytes # (1.0-4.8) k/uL Monocytes # (0-1.0) k/uL Eosinophils # (0-0.7) k/uL Basophils # (0-0.2) k/uL Sodium (137-145) mmol/L Potassium (3.5-5.1) mmol/L Chloride (98-107) mmol/L Carbon Dioxide (22-30) mmol/L Anion Gap mmol/L BUN (7-17) mg/dL Creatinine (0.52-1.04) mg/dL Est GFR (CKD-EPI)AfAm (>60 ml/min/1.73 sqM) Est GFR (CKD-EPI)NonAf (>60 ml/min/1.73 sqM) Glucose (74-99) mg/dL Plasma Lactic Acid Oc (0.7-2.0) mmol/L Calcium (8.4-10.2) mg/dL Total Bilirubin (0.2-1.3) mg/dL AST (14-36) U/L ALT (4-34) U/L Alkaline Phosphatase (38-126) U/L Total Protein (6.3-8.2) g/dL Albumin (3.5-5.0) g/dL Amylase (30-110) U/L Lipase (23-300) U/L Urine Color Yellow Urine Appearance Clear (Clear) Urine pH 8.5 H (5.0-8.0) Ur Specific [place] 1.025 (1.001-1.035) Urine Protein 1+ H (Negative) Urine Glucose (UA) Negative (Negative) Urine Ketones 3+ H (Negative) Urine Blood Negative (Negative) Urine Nitrite Negative (Negative) Urine Bilirubin Negative (Negative) Urine Urobilinogen 2.0 (<2.0) mg/dL Ur Leukocyte Esterase Trace H (Negative) Urine RBC 1 (0-5) /hpf Urine WBC 2 (0-5) /hpf Ur Squamous Epith Cells 7 H (0-4) /hpf Urine Mucus Many H (None) /hpf Urine HCG, Qual Not Detected (Not Detectd) Disposition Clinical Impression: Abdominal pain Disposition: HOME SELF-CARE Condition: Good Instructions (If sedation given, give patient instructions): Abdominal Pain (ED) Prescriptions: Ondansetron Odt [Zofran ODT] 4 mg PO Q8HR PRN #10 tab PRN Reason: Nausea Is patient prescribed a controlled substance at d/c from ED?: No Referrals: Anaya Gaffney MD [Primary Care Provider] - 1-2 days Nahed Holden MD [REFERRING] - 1-2 days
[2020-07-10 00:52] LABS: Basophils % (A) 0 %; Eosinophils # (A) 0.2 k/uL (0-0.7); Eosinophils % (A) 2 %; HCT 39.9 % (34.0-46.0); HGB 13.1 gm/dL (11.4-16.0); Lymphocytes # (A) 0.6 k/uL (1.0-4.8); Lymphocytes % (A) 10 %; MCH 30.4 pg (25.0-35.0); MCHC 32.8 g/dL (31.0-37.0); MCV 92.8 fL (80.0-100.0); Monocytes # (A) 0.1 k/uL (0-1.0); Monocytes % (A) 2 %; Neutrophils # (A) 5.6 k/uL (1.3-7.7); Neutrophils % (A) 85 %; Platelet Count 233 k/uL (150-450); WBC 6.5 k/uL (3.8-10.6)
[2020-07-10 01:12] LABS: ALT 14 U/L (4-34); AST 23 U/L (14-36); African American GFR (CKD) >90 (>60 ml/min/1.73 sqM); Albumin 4.2 g/dL (3.5-5.0); Alkaline Phosphatase 50 U/L (38-126); Amylase 42 U/L (30-110); Anion Gap 9 mmol/L; Blood Urea Nitrogen 4 mg/dL (7-17); Carbon Dioxide 17 mmol/L (22-30); Chloride 111 mmol/L (98-107); Glucose 118 mg/dL (74-99); Non-African American GFR(CKD) >90 (>60 ml/min/1.73 sqM); Potassium 3.8 mmol/L (3.5-5.1); Sodium 137 mmol/L (137-145); Total Bilirubin 0.7 mg/dL (0.2-1.3); Total Protein 7.2 g/dL (6.3-8.2)
[2020-07-10 01:57] LABS: Appearance,Urine Clear (Clear); Bilirubin,Urine Negative (Negative); Blood,Urine Negative (Negative); Color,Urine Yellow; Glucose,Urine (UA) Negative (Negative); Ketones,Urine 3+ (Negative); Leukocyte Esterase,Urine Trace (Negative); Mucus,Urine Many /hpf; Nitrite,Urine Negative (Negative); PH, Urine 8.5 (5.0-8.0); Protein,Urine 1+ (Negative); RBC,Urine 1 /hpf (0-5); Specific Gravity,Urine 1.025 (1.001-1.035); Squamous Epithelial Cell,Urine 7 /hpf (0-4); WBC,Urine 2 /hpf (0-5)
[2020-07-10] MEDS ORDERED: PROMETHAZINE INJ 25 MG in SODIUM CHLORIDE 0.9% 50 ML IVPB ONE (03:00)
[2020-07-10 04:09] VITALS: BP 94/71; PULSE 66; RESP 16; TEMP 97.8
[2020-07-11 15:00] LABS: C. trachomatis,PCR Negative (Neg,Equiv); Chlamydia trachomatis Source Urine; N. gonorrhoeae,PCR Negative (Neg,Equiv); Neisseria Source Urine
== END 2020-07-10 04:09 | disposition home or self-care (01) ==
LOC: EC 23:43
DX: R10.30 Lower abdominal pain, unspecified (principal); R11.2 Nausea with vomiting, unspecified
CPT/HCPCS: 36415; 80053; 82150; 83605; 83690; 85025; 81001; 81025; 87491; 87591; 99284; 96365; 96375 ×2; 96361; J2270; J2550; J2405

== ENCOUNTER 2020-11-04 19:52 | Emergency (ER) | payer BC, OTHER ==
[2020-11-04 20:02] VITALS: RESP 18; TEMP 98.4
[2020-11-04] MEDS ORDERED: LORazepam 2 MG/ML INJ IV STA (20:15)
[2020-11-04] MEDS ORDERED: SODIUM CHLORIDE 0.9% 1,000 ML IV STA ×2 (20:15)
[2020-11-04] MEDS ORDERED: ONDANSETRON 4 MG/2 ML VIAL IVP STA (20:15)
[2020-11-04] MEDS ORDERED: PANTOPRAZOLE 40 MG/10 ML VIAL IVP STA (20:15)
[2020-11-04] MEDS ORDERED: SODIUM CHLORIDE 0.9% 500 ML 500 ML IV STA (20:15)
[2020-11-04] MEDS ORDERED: diphenhydrAMINE 50 MG/ML 1 ML VIAL IVP STA (20:15)
--- NOTE | 2020-11-04 20:21 | ED ---
Nausea/Vomiting/Diarrhea HPI - General Chief complaint: Nausea/Vomiting/Diarrhea Stated complaint: Throwing up Time Seen by Provider: 11/04/20 20:08 Source: patient, RN notes reviewed, old records reviewed Mode of arrival: wheelchair Limitations: no limitations - History of Present Illness Initial comments: This is a 25-year-old female to the ER evaluation with persistent nausea vomiting. Patient has active vomiting here in the emergency room with no fevers. No pain. No diarrhea. No known significant similar contacts or patients with similar complaints. MD complaint: nausea, vomiting -: days(s) Description of Vomiting: food contents Description of Diarrhea: water Associated Abdominal Pain: Yes Location: diffuse Radiation: none Severity: moderate Severity scale (1-10): 4 Quality: aching Consistency: constant Improves with: none Worsens with: none Associated Symptoms: denies other symptoms, nausea/vomiting - Related Data Home Medications Medication Instructions Recorded Confirmed dimenhyDRINATE [Dimenhydrinate] 50 mg PO Q4-6H PRN 11/05/20 11/05/20 Previous Rx's Medication Instructions Recorded Ondansetron Odt [Zofran ODT] 4 mg PO Q8HR PRN #10 tab 07/10/20 Metoclopramide [Reglan] 10 mg PO Q8H PRN 4 Days #12 tab 11/06/20 Allergies Allergy/AdvReac Type Severity Reaction Status Date / Time No Known Allergies Allergy Verified 11/06/20 11:04 Review of Systems ROS Statement: Those systems with pertinent positive or pertinent negative responses have been documented in the HPI. ROS Other: All systems not noted in ROS Statement are negative. Past Medical History Past Medical History: No Reported History Additional Past Medical History / Comment(s): back pain History of Any Multi-Drug Resistant Organisms: None Reported Past Surgical History: No Surgical Hx Reported Additional Past Surgical History / Comment(s): D&C Past Psychological History: No Psychological Hx Reported Smoking Status: Never smoker Past Alcohol Use History: Rare Past Drug Use History: None Reported General Exam Limitations: no limitations General appearance: alert, in no apparent distress, anxious Head exam: Present: atraumatic, normocephalic, normal inspection Eye exam: Present: normal appearance, PERRL, EOMI. Absent: scleral icterus, conjunctival injection, periorbital swelling ENT exam: Present: normal exam, mucous membranes moist Neck exam: Present: normal inspection. Absent: tenderness, meningismus, lymphadenopathy Respiratory exam: Present: normal lung sounds bilaterally. Absent: respiratory distress, wheezes, rales, rhonchi, stridor Cardiovascular Exam: Present: regular rate, normal rhythm, normal heart sounds. Absent: systolic murmur, diastolic murmur, rubs, gallop, clicks GI/Abdominal exam: Present: soft, normal bowel sounds. Absent: distended, tenderness, guarding, rebound, rigid Extremities exam: Present: normal inspection, full ROM, normal capillary refill. Absent: tenderness, pedal edema, joint swelling, calf tenderness Back exam: Present: normal inspection Neurological exam: Present: alert, oriented X3, CN II-XII intact Psychiatric exam: Present: normal affect, normal mood Skin exam: Present: warm, dry, intact, normal color. Absent: rash Course Vital Signs 11/04/20 11/04/20 11/04/20 19:59 21:47 21:59 Temperature 98.4 F 98.4 F Pulse Rate 56 L 67 67 Respiratory 18 18 18 Rate Blood Pressure 111/65 97/70 97/70 O2 Sat by Pulse 98 98 98 Oximetry - Reevaluation(s) Reevaluation #1: Medical record is reviewed Patient reevaluated feeling fine, symptoms improved Patient informed of results and questions have been answered Patient feels good for discharge Medical Decision Making - Medical Decision Making 25 female persistent nausea vomiting history of same. Patient is unable to keep down medications presents ER, symptoms improved here with treatment no significant abnormalities on labs and patient can be discharged home - Lab Data Result diagrams: 11/04/20 20:20 11/04/20 20:20 Lab Results 11/04/20 11/04/20 Range/Units 20:20 20:20 WBC 8.0 (3.8-10.6) k/uL RBC 4.36 (3.80-5.40) m/uL Hgb 13.7 (11.4-16.0) gm/dL Hct 39.6 (34.0-46.0) % MCV 90.9 (80.0-100.0) fL MCH 31.4 (25.0-35.0) pg MCHC 34.6 (31.0-37.0) g/dL RDW 12.2 (11.5-15.5) % Plt Count 215 (150-450) k/uL MPV 8.2 Neutrophils % 82 % Lymphocytes % 13 % Monocytes % 3 % Eosinophils % 1 % Basophils % 0 % Neutrophils # 6.6 (1.3-7.7) k/uL Lymphocytes # 1.0 (1.0-4.8) k/uL Monocytes # 0.3 (0-1.0) k/uL Eosinophils # 0.1 (0-0.7) k/uL Basophils # 0.0 (0-0.2) k/uL Sodium 136 L (137-145) mmol/L Potassium 3.6 (3.5-5.1) mmol/L Chloride 107 (98-107) mmol/L Carbon Dioxide 20 L (22-30) mmol/L Anion Gap 9 mmol/L BUN 15 (7-17) mg/dL Creatinine 0.60 (0.52-1.04) mg/dL Est GFR (CKD-EPI)AfAm >90 (>60 ml/min/1.73 sqM) Est GFR (CKD-EPI)NonAf >90 (>60 ml/min/1.73 sqM) Glucose 113 H (74-99) mg/dL Calcium 9.7 (8.4-10.2) mg/dL Phosphorus 3.3 (2.5-4.5) mg/dL Magnesium 1.7 (1.6-2.3) mg/dL Total Bilirubin 0.8 (0.2-1.3) mg/dL AST 30 (14-36) U/L ALT 20 (4-34) U/L Alkaline Phosphatase 71 (38-126) U/L Creatine Kinase 131 (30-135) U/L Total Protein 8.4 H (6.3-8.2) g/dL Albumin 4.7 (3.5-5.0) g/dL Disposition Clinical Impression: Gastroenteritis Disposition: HOME SELF-CARE Condition: Good Instructions (If sedation given, give patient instructions): Acute Nausea and Vomiting (ED) Is patient prescribed a controlled substance at d/c from ED?: No Referrals: Anaya Gaffney MD [Primary Care Provider] - 1-2 days
[2020-11-04 20:30] LABS: Basophils % (A) 0 %; Eosinophils # (A) 0.1 k/uL (0-0.7); Eosinophils % (A) 1 %; HCT 39.6 % (34.0-46.0); HGB 13.7 gm/dL (11.4-16.0); Lymphocytes % (A) 13 %; MCH 31.4 pg (25.0-35.0); MCHC 34.6 g/dL (31.0-37.0); MCV 90.9 fL (80.0-100.0); Mean Platelet Volume 8.2; Monocytes # (A) 0.3 k/uL (0-1.0); Monocytes % (A) 3 %; Neutrophils # (A) 6.6 k/uL (1.3-7.7); Neutrophils % (A) 82 %; Platelet Count 215 k/uL (150-450); RBC 4.36 m/uL (3.80-5.40); RDW 12.2 % (11.5-15.5)
[2020-11-04 20:40] LABS: ALT 20 U/L (4-34); AST 30 U/L (14-36); African American GFR (CKD) >90 (>60 ml/min/1.73 sqM); Albumin 4.7 g/dL (3.5-5.0); Alkaline Phosphatase 71 U/L (38-126); Anion Gap 9 mmol/L; Blood Urea Nitrogen 15 mg/dL (7-17); Calcium 9.7 mg/dL (8.4-10.2); Carbon Dioxide 20 mmol/L (22-30); Chloride 107 mmol/L (98-107); Creatine Kinase 131 U/L (30-135); Glucose 113 mg/dL (74-99); Magnesium 1.7 mg/dL (1.6-2.3); Non-African American GFR(CKD) >90 (>60 ml/min/1.73 sqM); Phosphorus 3.3 mg/dL (2.5-4.5); Potassium 3.6 mmol/L (3.5-5.1); Sodium 136 mmol/L (137-145); Total Bilirubin 0.8 mg/dL (0.2-1.3); Total Protein 8.4 g/dL (6.3-8.2)
[2020-11-04] MEDS ORDERED: ONDANSETRON 4 MG ODT STARTER PACK 2 TAB BTL PO STA (21:44)
[2020-11-04 21:47] VITALS: BP 97/70; PULSE 67
== END 2020-11-04 22:27 | disposition home or self-care (01) ==
LOC: EC 19:52
DX: K52.9 Noninfective gastroenteritis and colitis, unspecified (principal)
CPT/HCPCS: 80053; 82550; 83735; 84100; 85025; 99284; 96374; 96375 ×3; 96361; J2060; J1200; J2405; S0119; C9113; 36415

== ENCOUNTER 2020-11-05 13:38 | Emergency (ER) | payer BC, OTHER ==
[2020-11-05] MEDS ORDERED: SODIUM CHLORIDE 0.9% 1,000 ML IV STA ×2 (14:12)
[2020-11-05] MEDS ORDERED: HYDROmorphone 0.5 MG/0.5 ML SYRINGE IVP STA (14:12)
[2020-11-05] MEDS ORDERED: ONDANSETRON 4 MG/2 ML VIAL IVP STA (14:12)
[2020-11-05 14:33] LABS: Appearance,Urine Cloudy (Clear); Bacteria,Urine Rare /hpf; Bilirubin,Urine Negative (Negative); Blood,Urine Trace (Negative); Color,Urine Yellow; Glucose,Urine (UA) Negative (Negative); Hyaline Casts,Urine 1 /lpf (0-2); Ketones,Urine 3+ (Negative); Leukocyte Esterase,Urine Trace (Negative); Mucus,Urine Many /hpf; Nitrite,Urine Negative (Negative); Protein,Urine Trace (Negative); RBC,Urine 3 /hpf (0-5); Specific Gravity,Urine 1.032 (1.001-1.035); Squamous Epithelial Cell,Urine 8 /hpf (0-4); WBC,Urine 4 /hpf (0-5)
[2020-11-05 14:53] LABS: Basophils % (A) 0 %; Eosinophils % (A) 1 %; HCT 38.9 % (34.0-46.0); HGB 13.4 gm/dL (11.4-16.0); Lymphocytes # (A) 1.7 k/uL (1.0-4.8); Lymphocytes % (A) 29 %; MCH 31.8 pg (25.0-35.0); MCHC 34.4 g/dL (31.0-37.0); MCV 92.4 fL (80.0-100.0); Mean Platelet Volume 8.9; Monocytes # (A) 0.4 k/uL (0-1.0); Monocytes % (A) 7 %; Neutrophils # (A) 3.6 k/uL (1.3-7.7); Neutrophils % (A) 61 %; Platelet Count 166 k/uL (150-450); RBC 4.21 m/uL (3.80-5.40); RDW 12.2 % (11.5-15.5)
[2020-11-05 15:10] LABS: ALT 16 U/L (4-34); AST 25 U/L (14-36); African American GFR (CKD) >90 (>60 ml/min/1.73 sqM); Albumin 3.9 g/dL (3.5-5.0); Alkaline Phosphatase 55 U/L (38-126); Amylase 43 U/L (30-110); Anion Gap 5 mmol/L; Blood Urea Nitrogen 11 mg/dL (7-17); Calcium 9.2 mg/dL (8.4-10.2); Carbon Dioxide 25 mmol/L (22-30); Chloride 106 mmol/L (98-107); Glucose 83 mg/dL (74-99); Lipase 39 U/L (23-300); Non-African American GFR(CKD) >90 (>60 ml/min/1.73 sqM); Potassium 3.6 mmol/L (3.5-5.1); Sodium 136 mmol/L (137-145); Total Bilirubin 0.7 mg/dL (0.2-1.3)
--- NOTE | 2020-11-05 16:18 | ED ---
Abdominal Pain HPI - General Chief Complaint: Abdominal Pain Stated Complaint: Abd Pain, Vomiting Time Seen by Provider: 11/05/20 13:47 Source: patient Mode of arrival: wheelchair Limitations: no limitations - History of Present Illness Initial Comments: 25-year-old feel presents today for chief complaint of nausea vomiting area patient states she's had some nausea vomiting as well as diarrhea for the past 3 days. Patient states she has not been able to control that she states she felt better after visit yesterday however the symptoms returned. Patient states she does have some upper right upper quadrant pain she denies a chest pain source of breath or abdominal pain pelvic pain she denies vaginal bleeding. Patient denies any dysuria urgency frequency. Denies fevers. patient has no additional complaints and appears well nontoxic on arrival. - Related Data Home Medications Medication Instructions Recorded Confirmed dimenhyDRINATE [Dimenhydrinate] 50 mg PO Q4-6H PRN 11/05/20 11/05/20 Previous Rx's Medication Instructions Recorded Ondansetron Odt [Zofran ODT] 4 mg PO Q8HR PRN #10 tab 07/10/20 Allergies Allergy/AdvReac Type Severity Reaction Status Date / Time No Known Allergies Allergy Verified 11/05/20 15:18 Review of Systems ROS Statement: Those systems with pertinent positive or pertinent negative responses have been documented in the HPI. ROS Other: All systems not noted in ROS Statement are negative. Past Medical History Past Medical History: No Reported History Additional Past Medical History / Comment(s): back pain History of Any Multi-Drug Resistant Organisms: None Reported Past Surgical History: No Surgical Hx Reported Additional Past Surgical History / Comment(s): D&C Past Psychological History: No Psychological Hx Reported Smoking Status: Never smoker Past Alcohol Use History: Rare Past Drug Use History: None Reported General Exam - General Exam Comments Initial Comments: General: The patient is awake and alert, in no distress Eye: +3 mm pupils are equal, round and reactive to light, extra-ocular movements are intact. No nystagmus. There is normal conjunctiva bilaterally. No signs of icterus. Ears, nose, mouth and throat: There are moist mucous membranes and no oral lesions. Neck: The neck is supple, there is no tenderness or JVD. Cardiovascular: There is a regular rate and rhythm. No murmur, rub or gallop is appreciated. Respiratory: Lungs are clear to auscultation, respirations are non-labored, breath sounds are equal. No wheezes, stridor, rales, or rhonchi. Gastrointestinal: Soft, non-distended, RUQ abdominal tenderness to palpation of the abdomen, abdomen without masses or organomegaly noted. There is no rebound or guarding present. Musculoskeletal: Normal ROM, no tenderness. Strength 5/5. Sensation intact. Radial pulses equal bilaterally 2+. Neurological: A&O x 3. CN II-XII intact grossly, There are no obvious motor or sensory deficits. Coordination appears grossly intact. Speech is normal. Skin: Skin is warm and dry and no rashes or lesions are noted. Psychiatric: Cooperative, appropriate mood & affect, normal judgment. Limitations: no limitations Course Vital Signs 11/05/20 11/05/20 13:42 17:46 Temperature 99.3 F 98 F Pulse Rate 52 L 79 Respiratory 18 16 Rate Blood Pressure 117/63 115/71 O2 Sat by Pulse 100 99 Oximetry Medical Decision Making - Medical Decision Making cc ruq/upper abdominal pain/n/v/ upper tenderness on exam. (-) murphys sign. labs stable, aside from ketones in urine. US (-). CT (-). pain controlled. no vomiting in ER. Patient statse she feels better and would like to go home. pt denies additional complaints. upon arrival she appears well nontoxic in no acute distress. Dr. Joe agreeable to this care plan. - Lab Data Result diagrams: 11/05/20 14:39 11/05/20 14:39 Lab Results 11/05/20 11/05/20 11/05/20 Range/Units 14:12 14:12 14:39 WBC 6.0 (3.8-10.6) k/uL RBC 4.21 (3.80-5.40) m/uL Hgb 13.4 (11.4-16.0) gm/dL Hct 38.9 (34.0-46.0) % MCV 92.4 (80.0-100.0) fL MCH 31.8 (25.0-35.0) pg MCHC 34.4 (31.0-37.0) g/dL RDW 12.2 (11.5-15.5) % Plt Count 166 (150-450) k/uL MPV 8.9 Neutrophils % 61 % Lymphocytes % 29 % Monocytes % 7 % Eosinophils % 1 % Basophils % 0 % Neutrophils # 3.6 (1.3-7.7) k/uL Lymphocytes # 1.7 (1.0-4.8) k/uL Monocytes # 0.4 (0-1.0) k/uL Eosinophils # 0.0 (0-0.7) k/uL Basophils # 0.0 (0-0.2) k/uL Sodium (137-145) mmol/L Potassium (3.5-5.1) mmol/L Chloride (98-107) mmol/L Carbon Dioxide (22-30) mmol/L Anion Gap mmol/L BUN (7-17) mg/dL Creatinine (0.52-1.04) mg/dL Est GFR (CKD-EPI)AfAm (>60 ml/min/1.73 sqM) Est GFR (CKD-EPI)NonAf (>60 ml/min/1.73 sqM) Glucose (74-99) mg/dL Plasma Lactic Acid Oc (0.7-2.0) mmol/L Calcium (8.4-10.2) mg/dL Total Bilirubin (0.2-1.3) mg/dL AST (14-36) U/L ALT (4-34) U/L Alkaline Phosphatase (38-126) U/L Total Protein (6.3-8.2) g/dL Albumin (3.5-5.0) g/dL Amylase (30-110) U/L Lipase (23-300) U/L Urine Color Yellow Urine Appearance Cloudy H (Clear) Urine pH 6.0 (5.0-8.0) Ur Specific [place] 1.032 (1.001-1.035) Urine Protein Trace H (Negative) Urine Glucose (UA) Negative (Negative) Urine Ketones 3+ H (Negative) Urine Blood Trace H (Negative) Urine Nitrite Negative (Negative) Urine Bilirubin Negative (Negative) Urine Urobilinogen 2.0 (<2.0) mg/dL Ur Leukocyte Esterase Trace H (Negative) Urine RBC 3 (0-5) /hpf Urine WBC 4 (0-5) /hpf Ur Squamous Epith Cells 8 H (0-4) /hpf Urine Bacteria Rare H (None) /hpf Hyaline Casts 1 (0-2) /lpf Urine Mucus Many H (None) /hpf Urine HCG, Qual Not Detected (Not Detectd) 11/05/20 11/05/20 Range/Units 14:39 14:39 WBC (3.8-10.6) k/uL RBC (3.80-5.40) m/uL Hgb (11.4-16.0) gm/dL Hct (34.0-46.0) % MCV (80.0-100.0) fL MCH (25.0-35.0) pg MCHC (31.0-37.0) g/dL RDW (11.5-15.5) % Plt Count (150-450) k/uL MPV Neutrophils % % Lymphocytes % % Monocytes % % Eosinophils % % Basophils % % Neutrophils # (1.3-7.7) k/uL Lymphocytes # (1.0-4.8) k/uL Monocytes # (0-1.0) k/uL Eosinophils # (0-0.7) k/uL Basophils # (0-0.2) k/uL Sodium 136 L (137-145) mmol/L Potassium 3.6 (3.5-5.1) mmol/L Chloride 106 (98-107) mmol/L Carbon Dioxide 25 (22-30) mmol/L Anion Gap 5 mmol/L BUN 11 (7-17) mg/dL Creatinine 0.63 (0.52-1.04) mg/dL Est GFR (CKD-EPI)AfAm >90 (>60 ml/min/1.73 sqM) Est GFR (CKD-EPI)NonAf >90 (>60 ml/min/1.73 sqM) Glucose 83 (74-99) mg/dL Plasma Lactic Acid Oc 0.9 (0.7-2.0) mmol/L Calcium 9.2 (8.4-10.2) mg/dL Total Bilirubin 0.7 (0.2-1.3) mg/dL AST 25 (14-36) U/L ALT 16 (4-34) U/L Alkaline Phosphatase 55 (38-126) U/L Total Protein 7.0 (6.3-8.2) g/dL Albumin 3.9 (3.5-5.0) g/dL Amylase 43 (30-110) U/L Lipase 39 (23-300) U/L Urine Color Urine Appearance (Clear) Urine pH (5.0-8.0) Ur Specific [place] (1.001-1.035) Urine Protein (Negative) Urine Glucose (UA) (Negative) Urine Ketones (Negative) Urine Blood (Negative) Urine Nitrite (Negative) Urine Bilirubin (Negative) Urine Urobilinogen (<2.0) mg/dL Ur Leukocyte Esterase (Negative) Urine RBC (0-5) /hpf Urine WBC (0-5) /hpf Ur Squamous Epith Cells (0-4) /hpf Urine Bacteria (None) /hpf Hyaline Casts (0-2) /lpf Urine Mucus (None) /hpf Urine HCG, Qual (Not Detectd) Disposition Clinical Impression: Abdominal pain, Vomiting, Nausea, Urine ketones Disposition: HOME SELF-CARE Condition: Good Instructions (If sedation given, give patient instructions): Abdominal Pain (ED) Additional Instructions: Please use medication as discussed. Please follow-up with family doctor in the next 2 days. Please return to emergency room if the symptoms increase or worsen or for any other concerns. Is patient prescribed a controlled substance at d/c from ED?: No Referrals: Anaya Gaffney MD [Primary Care Provider] - 1-2 days Time of Disposition: 17:32
--- NOTE | 2020-11-05 16:28 | US ---
EXAMINATION TYPE: US abdomen limited DATE OF EXAM: 11/05/2020 COMPARISON: CT 2019 CLINICAL HISTORY: ruq pain. Generalized abd pain with nausea and vomiting x 4 days. EXAM MEASUREMENTS: Liver Length: 15.6 cm Gallbladder Wall: 0.2 cm CBD: 0.2 cm Right Kidney: 10.4 x 5.7 x 3.6 cm Pancreas: wnl Liver: wnl Gallbladder: wnl Evidence for sonographic Cordero's sign: no CBD: wnl Right Kidney: wnl IMPRESSION: Negative exam. No gallstones or dilated ducts.
--- NOTE | 2020-11-05 17:23 | CT ---
EXAMINATION TYPE: CT abdomen pelvis w con DATE OF EXAM: 11/05/2020 COMPARISON: 04/09/2019 HISTORY: Upper abdominal pain CT DLP: 509.9 mGycm Automated exposure control for dose reduction was used. CONTRAST: Performed with IV Contrast, patient injected with 100 mL of Isovue 300. Images obtained from the diaphragm to the floor the pelvis with IV contrast. FINDINGS: Lung bases are clear. There is no pleural effusion. Heart size is normal. There is no pericardial eff usion. Liver spleen stomach pancreas appear intact. Bile ducts are not dilated. Gallbladder appears normal. There is no adrenal mass. Kidneys show satisfactory contrast opacification. There is no hydronephrosi s. Delayed images show normal renal excretion. There is no retroperitoneal adenopathy. Bladder disten ds smoothly. Uterus is anteverted. There is small amount of free fluid in the pelvis. The lumbar vert ebra have normal spacing and alignment. Posterior elements are intact. Bony pelvis appears intact. Hi p joints appear normal. There is no mesenteric edema. There is no ascites or free air. There is no evidence of bowel obstruct ion. There is no evidence of thickened appendix. Appendix partly filled with air and appears normal. Impression There is small amount of free fluid with low density in the pelvis that could be physiologic. There i s clearing of the 3 cm cyst on the left ovary compared to old exam. Normal appendix.
[2020-11-05] MEDS ORDERED: ONDANSETRON 4 MG ODT STARTER PACK 2 TAB BTL PO STA (17:35)
[2020-11-05 17:47] VITALS: BP 115/71; PULSE 79; RESP 16; TEMP 98
== END 2020-11-05 17:46 | disposition home or self-care (01) ==
LOC: EC 13:38
DX: R10.11 Right upper quadrant pain (principal); R11.2 Nausea with vomiting, unspecified; R82.4 Acetonuria; R10.811 Right upper quadrant abdominal tenderness
CPT/HCPCS: 36415; 80053; 82150; 83605; 83690; 85025; 81001; 81025; 76705; 74177; 99284; 96374; 96375; 96361 ×4; J2405; S0119; J1170; Q9967

== ENCOUNTER 2020-11-06 11:00 | Emergency (ER) | payer BC, OTHER ==
[2020-11-06 11:07] VITALS: RESP 18
[2020-11-06] MEDS ORDERED: METOCLOPRAMIDE 5 MG/ML 2 ML VIAL IM STA (11:11)
[2020-11-06] MEDS ORDERED: LORazepam 1 MG TAB PO STA (11:23)
[2020-11-06] MEDS ORDERED: HYDROmorphone 0.5 MG/0.5 ML SYRINGE IVP STA (11:44)
[2020-11-06] MEDS ORDERED: SODIUM CHLORIDE 0.9% 1,000 ML IV ONE (11:44)
--- NOTE | 2020-11-06 13:05 | ED ---
Nausea/Vomiting/Diarrhea HPI - General Chief complaint: Nausea/Vomiting/Diarrhea Stated complaint: revisit - vomiting Time Seen by Provider: 11/06/20 11:10 Source: patient Mode of arrival: ambulatory Limitations: no limitations - History of Present Illness Initial comments: 25-year-old feel presenting for nausea, vomiting. Patient states that she believes she has some type of cyclic vomiting syndrome she states that for the past year on and off she has had episodes of vomiting for a few days that will not stop. Patient states that she has abdominal discomfort from vomiting so much. She denies any chest pain shortness of breath she denies hematemesis or dark tarry stools or bloody stools. Patient denies . Patient has been here for 2 other visits within the last week. Patient states symptoms are identical not changed. She denies any fevers chills general lays. Patient states the Zofran does not seem to be helping. Remaining review of systems negative upon arrival patient appears in no distress no active vomiting - Related Data Home Medications Medication Instructions Recorded Confirmed dimenhyDRINATE [Dimenhydrinate] 50 mg PO Q4-6H PRN 11/05/20 11/05/20 Previous Rx's Medication Instructions Recorded Ondansetron Odt [Zofran ODT] 4 mg PO Q8HR PRN #10 tab 07/10/20 Metoclopramide [Reglan] 10 mg PO Q8H PRN 4 Days #12 tab 11/06/20 Allergies Allergy/AdvReac Type Severity Reaction Status Date / Time No Known Allergies Allergy Verified 11/06/20 11:04 Review of Systems ROS Statement: Those systems with pertinent positive or pertinent negative responses have been documented in the HPI. ROS Other: All systems not noted in ROS Statement are negative. Past Medical History Past Medical History: No Reported History Additional Past Medical History / Comment(s): back pain History of Any Multi-Drug Resistant Organisms: None Reported Past Surgical History: No Surgical Hx Reported Additional Past Surgical History / Comment(s): D&C Past Psychological History: No Psychological Hx Reported Smoking Status: Never smoker Past Alcohol Use History: Rare Past Drug Use History: None Reported General Exam - General Exam Comments Initial Comments: General: The patient is awake and alert, in no distress Eye: Pupils are equal, round and reactive to light, extra-ocular movements are intact. No nystagmus. There is normal conjunctiva bilaterally. No signs of icterus. Ears, nose, mouth and throat: There are moist mucous membranes and no oral lesions. Neck: The neck is supple, there is no tenderness or JVD. Cardiovascular: There is a regular rate and rhythm. No murmur, rub or gallop is appreciated. Respiratory: Lungs are clear to auscultation, respirations are non-labored, breath sounds are equal. No wheezes, stridor, rales, or rhonchi. Gastrointestinal: Soft, non-distended, non-tender abdomen without masses or organomegaly noted. There is no rebound or guarding present. Musculoskeletal: Normal ROM, no tenderness. Strength 5/5. Sensation intact. Pulses equal bilaterally 2+. Neurological: A&O x 3. CN II-XII intact grossly, There are no obvious motor or sensory deficits. Coordination appears grossly intact. Speech is normal. Skin: Skin is warm and dry and no rashes or lesions are noted. Psychiatric: Cooperative, appropriate mood & affect, normal judgment. Limitations: no limitations Course Vital Signs 11/06/20 11/06/20 11/06/20 11:04 12:15 13:25 Temperature 98.6 F 99.1 F Pulse Rate 66 73 55 L Respiratory 18 18 18 Rate Blood Pressure 116/74 114/82 101/63 O2 Sat by Pulse 100 100 Oximetry Medical Decision Making - Medical Decision Making Patient hydrated. She was given Reglan and Dilaudid. Symptoms improved. Patient be discharged with Reglan as well as tylenol 3 starter pack. Patient states that she feels comfortable discharge with outpatient gastroenterology follow-up. Patient abdominal exam again benign. Imaging and test yesterday negative. Patient case discussed with Dr. Savage pt discharged appearing well. Disposition Clinical Impression: Vomiting Disposition: HOME SELF-CARE Condition: Good Instructions (If sedation given, give patient instructions): Acute Nausea and Vomiting (ED) Additional Instructions: Please use medication as discussed. Please follow-up with family doctor in the next 2 days, recommend outpatient GI follow-up for cyclic episodes of vomiting. Please return to emergency room if the symptoms increase or worsen or for any other concerns. Prescriptions: Metoclopramide [Reglan] 10 mg PO Q8H PRN 4 Days #12 tab PRN Reason: Nausea Is patient prescribed a controlled substance at d/c from ED?: No Referrals: Anaya Gaffney MD [Primary Care Provider] - 1-2 days Jadon Beatty MD [STAFF PHYSICIAN] - 1-2 days Time of Disposition: 13:10
[2020-11-06] MEDS ORDERED: ACET/COD 300 MG/30 MG STARTER PACK 6 TAB BTL PO STA (13:09)
[2020-11-06 13:28] VITALS: BP 101/63; PULSE 55; TEMP 99.1
== END 2020-11-06 13:30 | disposition home or self-care (01) ==
LOC: EC 11:00
DX: R11.2 Nausea with vomiting, unspecified (principal)
CPT/HCPCS: 99283; 96374; 96361; 96372; J2765; J1170

== ENCOUNTER 2021-05-28 12:03 | Emergency (ER) | payer OTHER ==
[2021-05-28] MEDS ORDERED: SODIUM CHLORIDE 0.9% 1,000 ML IV STA (12:40)
[2021-05-28 12:49] LABS: Glucose,Whole Blood 128 mg/dL (75-99)
--- NOTE | 2021-05-28 12:53 | ED ---
General Adult HPI - General Chief complaint: Abdominal Pain Stated complaint: Abd Pain Time Seen by Provider: 05/28/21 12:05 Source: patient, EMS Mode of arrival: EMS Limitations: no limitations - History of Present Illness Initial comments: Dictation was produced using [employer] dictation software. please excuse any grammatical, word or spelling errors. Chief Complaint: 26-year-old female presents with severe pelvic pain History of Present Illness: Patient is a 26-year-old female she presents to the emergency department for severe pelvic pain 1 day. Patient states she has a history of interval bowel syndrome. She states that she just started her period. States that sometimes she gets severe pelvic pain with her periods. Elias burns will go this morning around 8:00 when she began experiencing severe pelvic pain. She has been having some mild bleeding. She has history of ectopic . She is sexually active. Denies any fevers. She has severe nausea. The ROS documented in this emergency department record has been reviewed and confirmed by me. Those systems with pertinent positive or negative responses have been documented in the HPI. All other systems are other negative and/or noncontributory. PHYSICAL EXAM: General Impression: Alert and oriented x3, diaphoretic, in acute distress secondary to pain HEENT: Normocephalic atraumatic, extra-ocular movements intact, pupils equal and reactive to light bilaterally, mucous membranes moist. Cardiovascular: Heart regular rate and rhythm Chest: Able to complete full sentences, no retractions, no tachypnea Abdomen: abdomen soft, severe tenderness to the pelvic area, non-distended, no organomegaly, no vaginal bleeding Musculoskeletal: Pulses present and equal in all extremities, no peripheral edema Motor: no focal deficits noted Neurological: CN II-XII grossly intact, no focal motor or sensory deficits noted Skin: Intact with no visualized rashes Psych: Anxious ED course: 26-year-old female presents to the emergency department for severe pelvic pain. Signs upon arrival are within acceptable limits. Patient appears to be in significant acute distress. Point of care bedside ultrasound was performed showing no free peritoneal fluid. She has no exsanguination coming from the external vagina. Patient is diaphoretic. Laboratory evaluation obtained. CBC, metabolic panel is unremarkable. Urinalysis shows 4+ ketones. Transvaginal ultrasound is negative. Computed tomography scan of the abdomen and pelvis shows distention of the rectosigmoid colon with gas and fecal material similar to exam. There is some periportal edema which may represent hepatitis. Radiology recommends clinical correlation. Patient's liver enzymes are normal. Patient reevaluated at bedside. States that she's had symptoms like this in the past. Her CT there did appear to show debris in the rectosigmoid colon with gas and fecal material. Perhaps her symptoms are secondary to pelvic irritation from fecal material. Disposition options were discussed the patient. She does not want to be admitted. She states that she will follow up with the GI doctor. Patient prescribed laxatives and by mouth analgesia. - Related Data Previous Rx's Medication Instructions Recorded HYDROcodone/APAP 5-325MG [[place] 1 tab PO Q6HR PRN 3 Days #12 tab 05/28/21 5-325] polyethylene glycoL 3350 [Miralax] 17 gm PO DAILY 3 Days #3 packet 05/28/21 Allergies Allergy/AdvReac Type Severity Reaction Status Date / Time No Known Allergies Allergy Verified 05/28/21 12:26 Review of Systems ROS Statement: Those systems with pertinent positive or pertinent negative responses have been documented in the HPI. ROS Other: All systems not noted in ROS Statement are negative. Past Medical History Past Medical History: No Reported History Additional Past Medical History / Comment(s): back pain History of Any Multi-Drug Resistant Organisms: None Reported Past Surgical History: No Surgical Hx Reported Additional Past Surgical History / Comment(s): D&C Past Psychological History: No Psychological Hx Reported Smoking Status: Never smoker Past Alcohol Use History: Rare Past Drug Use History: None Reported General Exam Limitations: no limitations Course Vital Signs 05/28/21 05/28/21 05/28/21 12:15 13:11 14:03 Temperature 98.0 F Pulse Rate 64 50 L 54 L Respiratory 18 16 16 Rate Blood Pressure 105/76 110/75 105/73 O2 Sat by Pulse 100 100 97 Oximetry Medical Decision Making - Lab Data Result diagrams: 05/28/21 13:01 05/28/21 13:01 Lab Results 05/28/21 05/28/21 05/28/21 Range/Units 12:43 13:01 13:01 WBC 8.1 (3.8-10.6) k/uL RBC 3.96 (3.80-5.40) m/uL Hgb 12.5 (11.4-16.0) gm/dL Hct 37.1 (34.0-46.0) % MCV 93.8 (80.0-100.0) fL MCH 31.6 (25.0-35.0) pg MCHC 33.6 (31.0-37.0) g/dL RDW 12.3 (11.5-15.5) % Plt Count 232 (150-450) k/uL MPV 8.5 Neutrophils % 86 % Lymphocytes % 9 % Monocytes % 3 % Eosinophils % 1 % Basophils % 0 % Neutrophils # 7.0 (1.3-7.7) k/uL Lymphocytes # 0.7 L (1.0-4.8) k/uL Monocytes # 0.3 (0-1.0) k/uL Eosinophils # 0.1 (0-0.7) k/uL Basophils # 0.0 (0-0.2) k/uL Sodium 141 (137-145) mmol/L Potassium 4.2 (3.5-5.1) mmol/L Chloride 112 H (98-107) mmol/L Carbon Dioxide 20 L (22-30) mmol/L Anion Gap 9 mmol/L BUN 8 (7-17) mg/dL Creatinine 0.55 (0.52-1.04) mg/dL Est GFR (CKD-EPI)AfAm >90 (>60 ml/min/1.73 sqM) Est GFR (CKD-EPI)NonAf >90 (>60 ml/min/1.73 sqM) Glucose 124 H (74-99) mg/dL POC Glucose (mg/dL) 128 H (75-99) mg/dL POC Glu Medical Supervisor ID [place], Ebony Calcium 9.6 (8.4-10.2) mg/dL Total Bilirubin 0.8 (0.2-1.3) mg/dL AST 34 (14-36) U/L ALT 18 (4-34) U/L Alkaline Phosphatase 71 (38-126) U/L Total Protein 7.2 (6.3-8.2) g/dL Albumin 4.3 (3.5-5.0) g/dL Lipase 36 (23-300) U/L HCG, Quant <2.4 mIU/mL Urine Color Urine Appearance (Clear) Urine pH (5.0-8.0) Ur Specific [place] (1.001-1.035) Urine Protein (Negative) Urine Glucose (UA) (Negative) Urine Ketones (Negative) Urine Blood (Negative) Urine Nitrite (Negative) Urine Bilirubin (Negative) Urine Urobilinogen (<2.0) mg/dL Ur Leukocyte Esterase (Negative) Urine RBC (0-5) /hpf Urine WBC (0-5) /hpf Ur Squamous Epith Cells (0-4) /hpf Urine Mucus (None) /hpf Urine HCG, Qual (Not Detectd) 05/28/21 05/28/21 Range/Units 13:53 13:53 WBC (3.8-10.6) k/uL RBC (3.80-5.40) m/uL Hgb (11.4-16.0) gm/dL Hct (34.0-46.0) % MCV (80.0-100.0) fL MCH (25.0-35.0) pg MCHC (31.0-37.0) g/dL RDW (11.5-15.5) % Plt Count (150-450) k/uL MPV Neutrophils % % Lymphocytes % % Monocytes % % Eosinophils % % Basophils % % Neutrophils # (1.3-7.7) k/uL Lymphocytes # (1.0-4.8) k/uL Monocytes # (0-1.0) k/uL Eosinophils # (0-0.7) k/uL Basophils # (0-0.2) k/uL Sodium (137-145) mmol/L Potassium (3.5-5.1) mmol/L Chloride (98-107) mmol/L Carbon Dioxide (22-30) mmol/L Anion Gap mmol/L BUN (7-17) mg/dL Creatinine (0.52-1.04) mg/dL Est GFR (CKD-EPI)AfAm (>60 ml/min/1.73 sqM) Est GFR (CKD-EPI)NonAf (>60 ml/min/1.73 sqM) Glucose (74-99) mg/dL POC Glucose (mg/dL) (75-99) mg/dL POC Glu Medical Supervisor ID Calcium (8.4-10.2) mg/dL Total Bilirubin (0.2-1.3) mg/dL AST (14-36) U/L ALT (4-34) U/L Alkaline Phosphatase (38-126) U/L Total Protein (6.3-8.2) g/dL Albumin (3.5-5.0) g/dL Lipase (23-300) U/L HCG, Quant mIU/mL Urine Color Yellow Urine Appearance Clear (Clear) Urine pH 7.5 (5.0-8.0) Ur Specific [place] 1.031 (1.001-1.035) Urine Protein 1+ H (Negative) Urine Glucose (UA) Negative (Negative) Urine Ketones 4+ H (Negative) Urine Blood Moderate H (Negative) Urine Nitrite Negative (Negative) Urine Bilirubin Negative (Negative) Urine Urobilinogen 4.0 (<2.0) mg/dL Ur Leukocyte Esterase Negative (Negative) Urine RBC 2 (0-5) /hpf Urine WBC 1 (0-5) /hpf Ur Squamous Epith Cells 2 (0-4) /hpf Urine Mucus Moderate H (None) /hpf Urine HCG, Qual Not Detected (Not Detectd) Disposition Clinical Impression: Pelvic pain Disposition: HOME SELF-CARE Condition: Fair Instructions (If sedation given, give patient instructions): Constipation (ED) Prescriptions: polyethylene glycoL 3350 [Miralax] 17 gm PO DAILY 3 Days #3 packet HYDROcodone/APAP 5-325MG [[place] 5-325] 1 tab PO Q6HR PRN 3 Days #12 tab PRN Reason: Severe Pain Is patient prescribed a controlled substance at d/c from ED?: Yes If prescribed controlled substance>3 days was MAPS reviewed?: Prescribed <3 Days Referrals: Anne King MD [Primary Care Provider] - 1-2 days Willa Escalante MD [STAFF PHYSICIAN] - 1-2 days
[2021-05-28] MEDS: fentaNYL (PF) 50 MCG/ML 5 ML AMP IVP STA ×2 (12:56→13:09)
[2021-05-28] MEDS: fentaNYL (PF) 50 MCG/ML 2 ML AMP IVP PRN ×2 (13:08→13:57)
[2021-05-28 13:11] LABS: Basophils % (A) 0 %; Eosinophils # (A) 0.1 k/uL (0-0.7); Eosinophils % (A) 1 %; HCT 37.1 % (34.0-46.0); HGB 12.5 gm/dL (11.4-16.0); Lymphocytes # (A) 0.7 k/uL (1.0-4.8); Lymphocytes % (A) 9 %; MCH 31.6 pg (25.0-35.0); MCHC 33.6 g/dL (31.0-37.0); MCV 93.8 fL (80.0-100.0); Mean Platelet Volume 8.5; Monocytes # (A) 0.3 k/uL (0-1.0); Monocytes % (A) 3 %; Neutrophils % (A) 86 %; Platelet Count 232 k/uL (150-450); RBC 3.96 m/uL (3.80-5.40); RDW 12.3 % (11.5-15.5); WBC 8.1 k/uL (3.8-10.6)
[2021-05-28 13:12] VITALS: RESP 16
[2021-05-28 13:21] LABS: ALT 18 U/L (4-34); AST 34 U/L (14-36); African American GFR (CKD) >90 (>60 ml/min/1.73 sqM); Albumin 4.3 g/dL (3.5-5.0); Alkaline Phosphatase 71 U/L (38-126); Anion Gap 9 mmol/L; Blood Urea Nitrogen 8 mg/dL (7-17); Calcium 9.6 mg/dL (8.4-10.2); Carbon Dioxide 20 mmol/L (22-30); Chloride 112 mmol/L (98-107); Glucose 124 mg/dL (74-99); Lipase 36 U/L (23-300); Non-African American GFR(CKD) >90 (>60 ml/min/1.73 sqM); Potassium 4.2 mmol/L (3.5-5.1); Sodium 141 mmol/L (137-145); Total Bilirubin 0.8 mg/dL (0.2-1.3); Total Protein 7.2 g/dL (6.3-8.2)
[2021-05-28 13:37] LABS: HCG,Quantitative Serum <2.4 mIU/mL
[2021-05-28 14:15] LABS: Appearance,Urine Clear (Clear); Bilirubin,Urine Negative (Negative); Blood,Urine Moderate (Negative); Color,Urine Yellow; Glucose,Urine (UA) Negative (Negative); Ketones,Urine 4+ (Negative); Leukocyte Esterase,Urine Negative (Negative); Mucus,Urine Moderate /hpf; Nitrite,Urine Negative (Negative); PH, Urine 7.5 (5.0-8.0); Protein,Urine 1+ (Negative); RBC,Urine 2 /hpf (0-5); Specific Gravity,Urine 1.031 (1.001-1.035); Squamous Epithelial Cell,Urine 2 /hpf (0-4); WBC,Urine 1 /hpf (0-5)
--- NOTE | 2021-05-28 14:40 | US ---
EXAMINATION TYPE: US transvaginal DATE OF EXAM: 05/28/2021 COMPARISON: US & CT CLINICAL HISTORY: pelvic pain. Pelvic pain TECHNIQUE: Transvaginal (TV). Transvaginal sonographic images of the pelvis were acquired. Date of LMP: Today 05/28/21 EXAM MEASUREMENTS: Uterus: 8.5 x 3.6 x 4.6 cm Endometrial Stripe: 0.8 cm Right Ovary: 2.4 x 2.0 x 2.8 cm Left Ovary: 3.1 x 2.0 x 2.7 cm 1. Uterus: Anteverted wnl 2. Endometrium: wnl 3. Right Ovary: wnl 4. Left Ovary: wnl Spectral, color and waveform doppler imaging shows good arterial and venous flow within the ovaries ; there is no evidence for ovarian torsion. 5. Bilateral Adnexa: wnl 6. Posterior cul-de-sac: wnl No abnormality visualized to account for pt's symptoms IMPRESSION: Normal uterus and endometrium. No evidence of ovarian torsion. Negative exam.
--- NOTE | 2021-05-28 15:22 | CT ---
EXAMINATION TYPE: CT abdomen pelvis w con DATE OF EXAM: 05/28/2021 COMPARISON: 11/05/2020 HISTORY: Severe pelvic pain CT DLP: 573 mGycm Automated exposure control for dose reduction was used. CONTRAST: Performed with IV Contrast, patient injected with 100 ml mL of Isovue 300. Images obtained from the diaphragm to the floor the pelvis with IV contrast. FINDINGS: Heart size is normal. Lung bases are clear. There is no pleural effusion. There is no pericardial eff usion. There is periportal edema in the liver. Spleen is intact. Stomach pancreas gallbladder appear intact. The bile ducts are not dilated. There is no adrenal mass. Kidneys show satisfactory contrast opacification. There is no hydronephrosi s. Ureters are not dilated. There is no retroperitoneal adenopathy. Bladder distends smoothly. Uterus is anteverted. There is no inguinal hernia. There is no free fluid in the pelvis. There is no eviden ce of a pelvic mass. Appendix is filled with air and appears normal. There is no mesenteric edema. There is no ascites or free air. There is no sign of a bowel obstructio n. Lumbar vertebra have normal spacing and alignment. Posterior elements are intact. There is no comp ression fracture. The hip joints are intact. There is no hip dysplasia. There is distended gas and fe jerri filled rectosigmoid colon. IMPRESSION: There is some distention of the rectosigmoid colon with gas and fecal material similar to old exam. There is some periportal edema in the liver that is nonspecific and can be associated with hepatitis. Normal appendix.
[2021-05-28] MEDS ORDERED: MORPHINE SULFATE 4 MG/ML SYRINGE IV STA (15:42)
[2021-05-28] MEDS ORDERED: ONDANSETRON 4 MG/2 ML VIAL IVP STA (15:53)
[2021-05-28] MEDS ORDERED: ONDANSETRON 4 MG ODT STARTER PACK 2 TAB BTL PO STA (15:53)
[2021-05-28 16:04] VITALS: BP 110/64; PULSE 86; TEMP 98.2
== END 2021-05-28 16:10 | disposition home or self-care (01) ==
LOC: EC 12:03
DX: R10.9 Unspecified abdominal pain (principal)
CPT/HCPCS: 36415; 80053; 83690; 85025; 81001; 81025; 84702; 93975; 76830; 74177; 99284; 96374; 96375 ×2; 96361 ×2; J2270; J2405; J3010; S0119; Q9967

== ENCOUNTER 2022-10-09 05:47 | Emergency (ER) | payer OTHER ==
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
[2022-10-09] MEDS ORDERED: ACET/COD 300 MG/30 MG STARTER PACK 6 TAB BTL PO STA (06:53)
[2022-10-09 07:42] VITALS: BP 110/61; PULSE 80; RESP 18; TEMP 98
== END 2022-10-09 07:42 | disposition home or self-care (01) ==
LOC: EC 05:47
DX: R07.81 Pleurodynia (principal)
CPT/HCPCS: 99285

== ENCOUNTER 2022-10-24 07:12 | Emergency (ER) | payer OTHER ==
[2022-10-24] MEDS ORDERED: ACETAMINOPHEN TAB 500 MG TAB PO STA (07:27)
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
[2022-10-24 09:27] VITALS: BP 101/69; PULSE 79; RESP 18; TEMP 98.7
== END 2022-10-24 09:27 | disposition home or self-care (01) ==
LOC: EC 07:12
DX: J10.1 Influenza due to other identified influenza virus with other respiratory manifestations (principal); Z20.822 Contact with and (suspected) exposure to COVID-19
CPT/HCPCS: 87636; 99284

== ENCOUNTER 2023-05-14 07:55 | Emergency (ER) | payer BC, OTHER ==
[2023-05-14 08:03] VITALS: RESP 18
--- NOTE | 2023-05-14 08:30 | ED ---
General Adult HPI - General Chief complaint: Urogenital Stated complaint: kidney pain Time Seen by Provider: 05/14/23 08:04 Source: patient Mode of arrival: ambulatory Limitations: no limitations - History of Present Illness Initial comments: Dictation was produced using [employer] dictation software. please excuse any grammatical, word or spelling errors. Chief Complaint: 28-year-old femalepast medical history presents to the ER for left sided flank pain History of Present Illness: Patient's 28-year-old female with no significant pa st medical history. She reports left-sided flank pain ongoing for the last 4-5 days. She was seen at urgent care was told that she had small amount of bacteria in her urine. She is prescribed antibiotics from the urgent care. States that the pain is to her bilateral flank areas worse in the left side. He states that he comes in waves. Denies any radiation to the groin. She does report a positional component. No urine changes. Denies any fever or constitutional symptoms. Patient on control. The ROS documented in this emergency department record has been reviewed and confirmed by me. Those systems with pertinent positive or negative responses have been documented in the HPI. All other systems are other negative and/or noncontributory. - Related Data Previous Rx's Medication Instructions Recorded HYDROcodone/APAP 5-325MG [[place] 1 tab PO Q6HR PRN 3 Days #12 tab 05/28/21 5-325] polyethylene glycoL 3350 [Miralax] 17 gm PO DAILY 3 Days #3 packet 05/28/21 Ibuprofen [Motrin] 600 mg PO Q8HR PRN #20 tab 10/09/22 Oseltamivir [Tamiflu] 75 mg PO Q12HR #10 cap 10/24/22 Allergies Allergy/AdvReac Type Severity Reaction Status Date / Time No Known Allergies Allergy Verified 05/14/23 08:02 Review of Systems ROS Statement: Those systems with pertinent positive or pertinent negative responses have been documented in the HPI. ROS Other: All systems not noted in ROS Statement are negative. Past Medical History Past Medical History: No Reported History Additional Past Medical History / Comment(s): back pain History of Any Multi-Drug Resistant Organisms: None Reported Past Surgical History: Section Additional Past Surgical History / Comment(s): D&C Past Psychological History: No Psychological Hx Reported Smoking Status: Never smoker Past Alcohol Use History: Rare Past Drug Use History: None Reported General Exam - General Exam Comments Initial Comments: PHYSICAL EXAM: General Impression: Alert and oriented x3, not in acute distress HEENT: Normocephalic atraumatic, extra-ocular movements intact, pupils equal and reactive to light bilaterally, mucous membranes moist. Cardiovascular: Heart regular rate and rhythm Chest: Able to complete full sentences, no retractions, no tachypnea Abdomen: abdomen soft, non-tender, non-distended, no organomegaly Musculoskeletal: Pulses present and equal in all extremities, no peripheral edema Motor: no focal deficits noted Neurological: CN II-XII grossly intact, no focal motor or sensory deficits noted Skin: Intact with no visualized rashes Psych: Normal affect and mood Limitations: no limitations Course Vital Signs 05/14/23 07:59 Temperature 99 F Pulse Rate 58 L Respiratory 18 Rate Blood Pressure 109/69 O2 Sat by Pulse 98 Oximetry Medical Decision Making - Medical Decision Making Was pt. sent in by a medical professional or institution (, PA, CIGARETTE CATCHER, urgent care, hospital, or penitentiary...) When possible be specific @ -No Did you speak to anyone other than the patient for history (EMS, parent, family, police, friend...)? What history was obtained from this source @ -No Did you review nursing and triage notes (agree or disagree)? Why? @ -I reviewed and agree with nursing and triage notes Were old charts reviewed (outside hosp., previous admission, EMS record, old EKG, old radiological studies, urgent care reports/EKG's, penitentiary records)? Report findings @ -No old charts were reviewed Differential Diagnosis (chest pain, altered mental status, abdominal pain women, abdominal pain men, vaginal bleeding, musculoskeletal, weakness, fever, dyspnea, syncope, headache, dizziness, GI bleed, back pain, seizure, CVA, palpatations, mental health)? @ -Differential Musculoskeletal: Muscular strain, contusion, ligament sprain, fracture, arthritis, septic arthritis, bursitis, cellulitis, muscle spasm, nerve compression, DVT, arterial occlusion, herpes zoster, electrolyte abnormality, tumor.... This is not meant to be in all inclusive list EKG interpreted by me (3pts min.). @ -None done X-rays interpreted by me (1pt min.). @ -None done CT interpreted by me (1pt min.). @ -None done U/S interpreted by me (1pt. min.). @ -None done What testing was considered but not performed or refused? (CT, X-rays, U/S, labs)? Why? @ -None What meds were considered but not given or refused? Why? @ -None Did you discuss the management of the patient with other professionals (professionals i.e. DrEnrique, PA, CIGARETTE CATCHER, lab, RT, psych nurse, social worker psychiatric, pulley mortiser operator, teacher, forest officer, pillowcase folder)? Give summary @ -No Was smoking cessation discussed for >3mins.? @ -No Was critical care preformed (if so, how long)? @ -No Were there social determinants of health that impacted care today? How? (Homelessness, low income, unemployed, alcoholism, drug addiction, transportation, low edu. Level, literacy, decrease access to med. care, detention, rehab)? @ -No Was there de-escalation of care discussed even if they declined (Discuss DNR or withdrawal of care, Hospice)? DNR status @ -No What co-morbidities impacted this encounter? (DM, HTN, Smoking, COPD, CAD, Cancer, CVA, ARF, Chemo, Hep., AIDS, mental health diagnosis, sleep apnea, morbid obesity)? @ -None Was patient admitted / discharged? Hospital course, mention meds given and route, prescriptions, significant lab abnormalities, going to OR and other p ertinent info. @ -28-year-old female presents with left-sided flank pain. Vital signs are stable. Physical examination benign patient is well-appearing. She reports a positional component to her pain. She is no acute distress. Laboratory evaluation obtained. CBC, metabolic panel is unremarkable. Urinalysis is negative. Patient's symptoms and clinical presentation appears to be [id number]. Patient likely has musculoskeletal strain. Patient discharged advised follow-up with primary care doctor. Undiagnosed new problem with uncertain prognosis? @ -No Drug Therapy requiring intensive monitoring for toxicity (Heparin, Nitro, Insulin, Cardizem)? @ -No Were any procedures done? @ -No Diagnosis/symptom? Acute, or Chronic, or Acute on Chronic? Uncomplicated (without systemic symptoms) or Complicated (systemic symptoms)? @ -1. Flank pain, no high-risk features, no obvious source Side effects of treatment? @ -No Exacerbation, Progression, or Severe Exacerbation? @ -No Poses a threat to life or bodily function? How? (Chest pain, [place], [place], pneumonia, PE, COPD, DKA, ARF, appy, cholecystitis, CVA, Diverticulitis, Homicidal, Suicidal, threat to staff... and all critical care pts) @ -No - Lab Data Result diagrams: 05/14/23 08:30 05/14/23 08:30 Lab Results 05/14/23 05/14/23 05/14/23 Range/Units 08:30 08:30 08:30 WBC 4.8 (3.8-10.6) k/uL RBC 3.94 (3.80-5.40) m/uL Hgb 12.4 (11.4-16.0) gm/dL Hct 37.1 (34.0-46.0) % MCV 94.2 (80.0-100.0) fL MCH 31.5 (25.0-35.0) pg MCHC 33.4 (31.0-37.0) g/dL RDW 12.0 (11.5-15.5) % Plt Count 208 (150-450) k/uL MPV 8.2 Neutrophils % 37 % Lymphocytes % 52 % Monocytes % 6 % Eosinophils % 2 % Basophils % 0 % Neutrophils # 1.8 (1.3-7.7) k/uL Lymphocytes # 2.5 (1.0-4.8) k/uL Monocytes # 0.3 (0-1.0) k/uL Eosinophils # 0.1 (0-0.7) k/uL Basophils # 0.0 (0-0.2) k/uL Sodium 137 (137-145) mmol/L Potassium 4.1 (3.5-5.1) mmol/L Chloride 111 H (98-107) mmol/L Carbon Dioxide 20 L (22-30) mmol/L Anion Gap 6 mmol/L BUN 11 (7-17) mg/dL Creatinine 0.58 (0.52-1.04) mg/dL Est GFR (CKD-EPI)AfAm >90 (>60 ml/min/1.73 sqM) Est GFR (CKD-EPI)NonAf >90 (>60 ml/min/1.73 sqM) Glucose 82 (74-99) mg/dL Calcium 9.0 (8.4-10.2) mg/dL HCG, Quant <2.4 mIU/mL Urine Color Light Yellow Urine Appearance Clear (Clear) Urine pH 5.5 (5.0-8.0) Ur Specific [place] 1.005 (1.001-1.035) Urine Protein Negative (Negative) Urine Glucose (UA) Negative (Negative) Urine Ketones Negative (Negative) Urine Blood Large H (Negative) Urine Nitrite Negative (Negative) Urine Bilirubin Negative (Negative) Urine Urobilinogen <2.0 (<2.0) mg/dL Ur Leukocyte Esterase Negative (Negative) Urine RBC 2 (0-5) /hpf Urine WBC 2 (0-5) /hpf Ur Squamous Epith Cells 3 (0-4) /hpf Amorphous Sediment Rare H (None) /hpf Urine Bacteria Rare H (None) /hpf Urine Mucus Rare H (None) /hpf Disposition Clinical Impression: Flank pain Disposition: HOME SELF-CARE Condition: Good Instructions (If sedation given, give patient instructions): Flank Pain (ED) Is patient prescribed a controlled substance at d/c from ED?: No Referrals: None,Stated [Primary Care Provider] - 1-2 days Time of Disposition: 09:22
[2023-05-14 08:44] LABS: Basophils % (A) 0 %; Eosinophils # (A) 0.1 k/uL (0-0.7); Eosinophils % (A) 2 %; HCT 37.1 % (34.0-46.0); HGB 12.4 gm/dL (11.4-16.0); Lymphocytes # (A) 2.5 k/uL (1.0-4.8); Lymphocytes % (A) 52 %; MCH 31.5 pg (25.0-35.0); MCHC 33.4 g/dL (31.0-37.0); MCV 94.2 fL (80.0-100.0); Mean Platelet Volume 8.2; Monocytes # (A) 0.3 k/uL (0-1.0); Monocytes % (A) 6 %; Neutrophils # (A) 1.8 k/uL (1.3-7.7); Neutrophils % (A) 37 %; Platelet Count 208 k/uL (150-450); RBC 3.94 m/uL (3.80-5.40); WBC 4.8 k/uL (3.8-10.6)
[2023-05-14 08:56] LABS: African American GFR (CKD) >90 (>60 ml/min/1.73 sqM); Anion Gap 6 mmol/L; Blood Urea Nitrogen 11 mg/dL (7-17); Carbon Dioxide 20 mmol/L (22-30); Chloride 111 mmol/L (98-107); Glucose 82 mg/dL (74-99); Non-African American GFR(CKD) >90 (>60 ml/min/1.73 sqM); Potassium 4.1 mmol/L (3.5-5.1); Sodium 137 mmol/L (137-145)
[2023-05-14 09:03] LABS: Amorphous Sediment,Urine Rare /hpf; Appearance,Urine Clear (Clear); Bacteria,Urine Rare /hpf; Bilirubin,Urine Negative (Negative); Blood,Urine Large (Negative); Color,Urine Light Yellow; Glucose,Urine (UA) Negative (Negative); Ketones,Urine Negative (Negative); Leukocyte Esterase,Urine Negative (Negative); Mucus,Urine Rare /hpf; Nitrite,Urine Negative (Negative); PH, Urine 5.5 (5.0-8.0); Protein,Urine Negative (Negative); RBC,Urine 2 /hpf (0-5); Specific Gravity,Urine 1.005 (1.001-1.035); Squamous Epithelial Cell,Urine 3 /hpf (0-4); Urobilinogen,Urine <2.0 mg/dL (<2.0); WBC,Urine 2 /hpf (0-5)
[2023-05-14 09:12] LABS: HCG,Quantitative Serum <2.4 mIU/mL
[2023-05-14 09:34] VITALS: BP 112/76; PULSE 64; TEMP 98.4
== END 2023-05-14 09:38 | disposition home or self-care (01) ==
LOC: EC 07:55
DX: R10.9 Unspecified abdominal pain (principal)
CPT/HCPCS: 36415; 80048; 81001; 84702; 85025; 99283

== ENCOUNTER 2023-06-25 08:02 | Emergency (ER) | payer BC, OTHER ==
[2023-06-25] MEDS ORDERED: KETOROLAC 15 MG/ML 1 ML VIAL IM STA (08:34)
--- NOTE | 2023-06-25 08:50 | ED ---
General Adult HPI - General Chief complaint: Back Pain/Injury Stated complaint: back pain Time Seen by Provider: 06/25/23 08:08 Source: patient, RN notes reviewed, old records reviewed Mode of arrival: ambulatory Limitations: no limitations - History of Present Illness Initial comments: Patient is a 28-year-old female who presents emergency Department complaining of back pain. States it has been on and off for the last 2-3 weeks and comes and goes depending on activity. States it is worse when she was heavy objects at work. States it is somewhat located in her right buttocks and shoots down the back of her right leg. No obvious back trauma other than she felt something pull when she lifted something heavy a few weeks ago. Denies any lower e xtremity numbness. Denies any saddle anesthesias. Denies any urinary or bowel incontinence or retention. States the pain shoots down the back of her right leg. Comes and goes. No other acute complaints at this time. Presents for evaluation. Pain is worse with movement of her leg. - Related Data Previous Rx's Medication Instructions Recorded HYDROcodone/APAP 5-325MG [[place] 1 tab PO Q6HR PRN 3 Days #12 tab 05/28/21 5-325] polyethylene glycoL 3350 [Miralax] 17 gm PO DAILY 3 Days #3 packet 05/28/21 Ibuprofen [Motrin] 600 mg PO Q8HR PRN #20 tab 10/09/22 Oseltamivir [Tamiflu] 75 mg PO Q12HR #10 cap 10/24/22 Cyclobenzaprine [Flexeril] 5 mg PO BID PRN 5 Days #10 tablet 06/25/23 Allergies Allergy/AdvReac Type Severity Reaction Status Date / Time No Known Allergies Allergy Verified 06/25/23 08:07 Review of Systems ROS Statement: Those systems with pertinent positive or pertinent negative responses have been documented in the HPI. Review of Systems: CONST: Denies fever EYES: Denies blurry vision ENT: Denies nasal congestion C/V: Denies Chest pain RESP: Denies shortness of breath GI: Denies abdominal pain : Denies dysuria SKIN: Denies rash. MSK: Endorses right-sided back pain with shooting pain down her posterior right leg. NEURO: Denies headache ROS Other: All systems not noted in ROS Statement are negative. Past Medical History Past Medical History: No Reported History Additional Past Medical History / Comment(s): back pain History of Any Multi-Drug Resistant Organisms: None Reported Past Surgical History: Section Additional Past Surgical History / Comment(s): D&C Past Psychological History: No Psychological Hx Reported Smoking Status: Never smoker Past Alcohol Use History: Rare Past Drug Use History: None Reported General Exam - General Exam Comments Initial Comments: General: Appears in no acute distress. HEAD: Normal with no signs of head trauma. EYES: EOMI. ENT: Hearing grossly intact. RESPIRATORY: No respiratory distress. C/V: Regular rate and rhythm. ABD: Abdomen is nondistended. EXT: No obvious deformity. No significant midline lumbar spine tenderness to palpation. Normal range of motion of the right leg without any obvious deformity. Pain not reproducible on palpation. Neurovascular intact throughout. SKIN: No rashes or lesions observed on exposed skin. NEURO: Alert and oriented. Limitations: no limitations Course Vital Signs 06/25/23 06/25/23 08:05 10:41 Temperature 98.4 F 98.1 F Pulse Rate 60 59 L Respiratory 20 14 Rate Blood Pressure 152/54 114/73 O2 Sat by Pulse 99 99 Oximetry Medical Decision Making - Medical Decision Making Was pt. sent in by a medical professional or institution (, [facility], [employer], urgent care, hospital, or [facility]...) When possible be specific @ -No Did you speak to anyone other than the patient for history (EMS, parent, family, police, friend...)? What history was obtained from this source @ -No Did you review nursing and triage notes (agree or disagree)? Why? @ -I reviewed and agree with nursing and triage notes Were old charts reviewed (outside hosp., previous admission, EMS record, old EKG, old radiological studies, urgent care reports/EKG's, [facility] records)? Report findings @ -No old charts were reviewed Differential Diagnosis (chest pain, altered mental status, abdominal pain women, abdominal pain men, vaginal bleeding, weakness, fever, dyspnea, syncope, headache, dizziness, GI bleed, back pain, seizure, CVA, palpatations, mental health, musculoskeletal)? @ -Differential Musculoskeletal Muscular strain, contusion, ligament sprain, fracture, arthritis, septic arthritis, bursitis, cellulitis, muscle spasm, nerve compression, DVT, arterial occlusion, herpes zoster, electrolyte abnormality, tumor.... This is not meant to be in all inclusive list EKG interpreted by me (3pts min.). @ -None done X-rays interpreted by me (1pt min.). @ -Lumbar spine x-ray reveals degenerative changes but no obvious acute injury. CT interpreted by me (1pt min.). @ -None done U/S interpreted by me (1pt. min.). @ -None done What testing was considered but not performed or refused? (CT, X-rays, U/S, labs)? Why? @ -None What meds were considered but not given or refused? Why? @ -None Did you discuss the management of the patient with other professionals (professionals i.e. Dr., PA, CAMERA MAKER, lab, RT, psych nurse, forensic social worker, telecommunications professional, teacher, escrow officer, geriatric case manager)? Give summary @ -No Was smoking cessation discussed for >3mins.? @ -No Was critical care preformed (if so, how long)? @ -No Were there social determinants of health that impacted care today? How? (Homelessness, low income, unemployed, alcoholism, drug addiction, transportation, low edu. Level, literacy, decrease access to med. care, care home, rehab)? @ -No Was there de-escalation of care discussed even if they declined (Discuss DNR or withdrawal of care, Hospice)? DNR status @ -No What co-morbidities impacted this encounter? (DM, HTN, Smoking, COPD, CAD, Cancer, CVA, ARF, Chemo, Hep., AIDS, mental health diagnosis, sleep apnea, morbid obesity)? @ -None Was patient admitted / discharged? Hospital course, mention meds given and route, prescriptions, significant lab abnormalities, going to OR and other pertinent info. @ -Based on the patient's presentation and physical exam, I do suspect her pain is likely related to sciatica. She does not have any red flag symptoms to be concerned for cauda equina syndrome at this time. We discussed my suspicions and she was in agreement with x-ray of her lower spine to be given a Toradol injection. Vital signs within normal limits. Exam otherwise unremarkable. She was in agreement with this plan. Lumbar spine x-ray reveals degenerative changes but no obvious acute injury. She has no findings concerning for cauda equina syndrome at this time. Discussed results with the patient. She'll be discharged home at this time with muscle relaxer as well as a work note for 2 days. Strict return precautions discussed. Discussed rest, ice, heat, analgesia medications for pain control. I will provide the patient with a prescription for Flexeril. I instructed the patient to follow up with their PCP in the next 1-3 days. I explained that the patient should return to the emergency department if they experience any worsening symptoms. Strict return precautions were discussed with the patient. The patient expressed understanding of these instructions. I answered all questions that the patient had. The patient was discharged home in good condition with their prescriptions and follow up information. Undiagnosed new problem with uncertain prognosis? @ -No Drug Therapy requiring intensive monitoring for toxicity (Heparin, Nitro, Insulin, Cardizem)? @ -No Were any procedures done? @ -No Diagnosis/symptom? @ -Sciatica Acute, or Chronic, or Acute on Chronic? @ -Acute Uncomplicated (without systemic symptoms) or Complicated (systemic symptoms)? @ -Uncomplicated Side effects of treatment? @ -No Exacerbation, Progression, or Severe Exacerbation? @ -No Poses a threat to life or bodily function? How? (Chest pain, [place], [place], pneumonia, PE, COPD, DKA, ARF, appy, cholecystitis, CVA, Diverticulitis, Homicidal, Suicidal, threat to staff... and all critical care pts) @ -No Disposition Clinical Impression: Sciatica, Degenerative disc disease Disposition: HOME SELF-CARE Condition: Good Instructions (If sedation given, give patient instructions): Sciatica (ED), Acute Low Back Pain (ED) Prescriptions: Cyclobenzaprine [Flexeril] 5 mg PO BID PRN 5 Days #10 tablet PRN Reason: Pain Is patient prescribed a controlled substance at d/c from ED?: No Referrals: None,Stated [Primary Care Provider] - 1-2 days Time of Disposition: 10:16
--- NOTE | 2023-06-25 09:48 | XR ---
EXAM TYPE: LUMBAR SPINE X RAY SERIES COMPARISON: NONE HISTORY: Pain TECHNIQUE: 3 views are submitted. FINDINGS: Alignment is anatomic. The pedicles are intact. The transverse processes are intact. There is no s pondylolysis or spondylolisthesis. Calcifications in pelvis are vascular. Mild disc space narrowing L5-S1 IMPRESSION: 1. Mild degenerative disc disease L5-S1. If there is concern for occult fracture, correlate with CT s can.
[2023-06-25 10:42] VITALS: BP 114/73; PULSE 59; RESP 14; TEMP 98.1
== END 2023-06-25 10:42 | disposition home or self-care (01) ==
LOC: EC 08:02
DX: M51.37 Other intervertebral disc degeneration, lumbosacral region (principal)
CPT/HCPCS: 72100; 99283; 96372; J1885

== ENCOUNTER 2024-02-08 08:26 | Emergency (ER) | payer BC, OTHER ==
--- NOTE | 2024-02-08 08:43 | ED ---
Nausea/Vomiting/Diarrhea HPI - General Chief complaint: Nausea/Vomiting/Diarrhea Stated complaint: Vomiting/abd pain Time Seen by Provider: 02/08/24 08:35 Source: patient, RN notes reviewed Mode of arrival: ambulatory Limitations: no limitations - History of Present Illness Initial comments: 29-year-old female presents emergency department with chief complaint of nausea vomiting abdominal pain. Patient states she has bad menstrual cramps she states on the first day of her menstrual cycle she has severe cramping and vomiting. She states she was on control for this but states that it was bothering her so she discontinued her control. Patient denies any chest pain denies any fevers or chills denies any flank pain. - Related Data Previous Rx's Medication Instructions Recorded HYDROcodone/APAP 5-325MG [[place] 1 tab PO Q6HR PRN 3 Days #12 tab 05/28/21 5-325] polyethylene glycoL 3350 [Miralax] 17 gm PO DAILY 3 Days #3 packet 05/28/21 Ibuprofen [Motrin] 600 mg PO Q8HR PRN #20 tab 10/09/22 Oseltamivir [Tamiflu] 75 mg PO Q12HR #10 cap 10/24/22 Cyclobenzaprine [Flexeril] 5 mg PO BID PRN 5 Days #10 tablet 06/25/23 Ketorolac [Toradol] 10 mg PO Q8HR #15 tab 02/08/24 Ondansetron Odt [Zofran Odt] 4 mg PO Q8HR PRN #10 tab 02/08/24 Allergies Allergy/AdvReac Type Severity Reaction Status Date / Time No Known Allergies Allergy Verified 02/08/24 08:34 Review of Systems ROS Statement: Those systems with pertinent positive or pertinent negative responses have been documented in the HPI. ROS Other: All systems not noted in ROS Statement are negative. Past Medical History Past Medical History: No Reported History Additional Past Medical History / Comment(s): back pain History of Any Multi-Drug Resistant Organisms: None Reported Past Surgical History: Section Additional Past Surgical History / Comment(s): D&C Past Psychological History: No Psychological Hx Reported Smoking Status: Never smoker Past Alcohol Use History: Rare Past Drug Use History: Marijuana General Exam Limitations: no limitations General appearance: alert, in no apparent distress Head exam: Present: atraumatic, normocephalic, normal inspection Eye exam: Present: normal appearance, PERRL, EOMI. Absent: scleral icterus, conjunctival injection, periorbital swelling Respiratory exam: Present: normal lung sounds bilaterally. Absent: respiratory distress, wheezes, rales, rhonchi, stridor Cardiovascular Exam: Present: regular rate, normal rhythm, normal heart sounds. Absent: systolic murmur, diastolic murmur, rubs, gallop, clicks GI/Abdominal exam: Present: soft, tenderness, normal bowel sounds. Absent: distended, guarding, rebound, rigid Back exam: Absent: CVA tenderness (R), CVA tenderness (L) Neurological exam: Present: alert Skin exam: Present: warm, dry, intact, normal color. Absent: rash Course Vital Signs 02/08/24 02/08/24 08:30 11:28 Temperature 98 F Pulse Rate 78 50 L Respiratory 18 18 Rate Blood Pressure 110/73 119/79 O2 Sat by Pulse 98 100 Oximetry Medical Decision Making - Medical Decision Making Was pt. sent in by a medical professional or institution ( PA, [employer], urgent care, hospital, or [place] [facility]...) When possible be specific @ -No Did you speak to anyone other than the patient for history (EMS, parent, family, police, friend...)? What history was obtained from this source @ -No Did you review nursing and triage notes (agree or disagree)? Why? @ -I reviewed and agree with nursing and triage notes Were old charts reviewed (outside hosp., previous admission, EMS record, old EKG, old radiological studies, urgent care reports/EKG's, [place] [facility] records)? Report findings @ -No old charts were reviewed Differential Diagnosis (chest pain, altered mental status, abdominal pain women, abdominal pain men, vaginal bleeding, weakness, fever, dyspnea, syncope, headache, dizziness, GI bleed, back pain, seizure, CVA, palpatations, mental health, musculoskeletal)? @ -Differential Abdominal Pain Women: Appendicitis, Cholecystitis, diverticulosis, ischemic bowel, pancreatitis, hepatitis, UTI, gastroenteritis, AAA, incarcerated hernia, bowel obstruction, constipation, inflammatory bowel, hepatitis, peptic ulcer disease, splenic infarction, perforated viscus, vulvitis, ovarian torsion, PID, kidney stone, placenta abruption, this is not meant to be an all-inclusive list EKG interpreted by me (3pts min.). @ -None X-rays interpreted by me (1pt min.). @ -None done CT interpreted by me (1pt min.). @ -None done U/S interpreted by me (1pt. min.). @ -None done What testing was considered but not performed or refused? (CT, X-rays, U/S, labs)? Why? @ -None What meds were considered but not given or refused? Why? @ -None Did you discuss the management of the patient with other professionals (professionals i.e. , PA, [employer], lab, RT, psych nurse, director of social services, cooling tower operator, teacher, police officer booking, case packer)? Give summary @ -No Was smoking cessation discussed for >3mins.? @ -No Was critical care preformed (if so, how long)? @ -No Were there social determinants of health that impacted care today? How? (Homelessness, low income, unemployed, alcoholism, drug addiction, transportation, low edu. Level, literacy, decrease access to med. care, senior living, rehab)? @ -No Was there de-escalation of care discussed even if they declined (Discuss DNR or withdrawal of care, Hospice)? DNR status @ -No What co-morbidities impacted this encounter? (DM, HTN, Smoking, COPD, CAD, Cancer, CVA, ARF, Chemo, Hep., AIDS, mental health diagnosis, sleep apnea, morbid obesity)? @ -None Was patient admitted / discharged? Hospital course, mention meds given and route, prescriptions, significant lab abnormalities, going to OR and other pertinent info. @ -Discharge patient presented for dysmenorrhea, nausea vomiting. Patient feels improved after Toradol, droperidol. Workup including labs and urinalysis is unremarkable return plans discussed patient agrees plan to discharge with follow-up with [facility] [employer]. Undiagnosed new problem with uncertain prognosis? @ -No Drug Therapy requiring intensive monitoring for toxicity (Heparin, Nitro, Insulin, Cardizem)? @ -No Were any procedures done? @ -No Diagnosis/symptom? @ -Dysmenorrhea, nausea vomiting Acute, or Chronic, or Acute on Chronic? @ -Acute Uncomplicated (without systemic symptoms) or Complicated (systemic symptoms)? @ -Uncomplicated Side effects of treatment? @ -No Exacerbation, Progression, or Severe Exacerbation? @ -No Poses a threat to life or bodily function? How? (Chest pain, [place], [place], pneumonia, PE, COPD, DKA, ARF, appy, cholecystitis, CVA, Diverticulitis, Homicidal, Suicidal, threat to staff... and all critical care pts) @ -No - Lab Data Result diagrams: 02/08/24 08:51 02/08/24 08:51 Lab Results 02/08/24 02/08/24 02/08/24 Range/Units 08:51 08:51 08:51 WBC 6.9 (3.8-10.6) k/uL RBC 4.24 (3.80-5.40) m/uL Hgb 13.3 (11.4-16.0) gm/dL Hct 40.6 (34.0-46.0) % MCV 95.7 (80.0-100.0) fL MCH 31.3 (25.0-35.0) pg MCHC 32.7 (31.0-37.0) g/dL RDW 13.1 (11.5-15.5) % Plt Count 288 (150-450) k/uL MPV 9.4 Neutrophils % 54 % Lymphocytes % 34 % Monocytes % 6 % Eosinophils % 2 % Basophils % 0 % Neutrophils # 3.7 (1.3-7.7) k/uL Lymphocytes # 2.3 (1.0-4.8) k/uL Monocytes # 0.4 (0-1.0) k/uL Eosinophils # 0.1 (0-0.7) k/uL Basophils # 0.0 (0-0.2) k/uL Sodium (137-145) mmol/L Potassium (3.5-5.1) mmol/L Chloride (98-107) mmol/L Carbon Dioxide (22-30) mmol/L Anion Gap mmol/L BUN (7-17) mg/dL Creatinine (0.52-1.04) mg/dL Est GFR (CKD-EPI)AfAm (>60 ml/min/1.73 sqM) Est GFR (CKD-EPI)NonAf (>60 ml/min/1.73 sqM) Glucose (74-99) mg/dL Calcium (8.4-10.2) mg/dL Total Bilirubin (0.2-1.3) mg/dL AST (14-36) U/L ALT (4-34) U/L Alkaline Phosphatase (38-126) U/L Total Protein (6.3-8.2) g/dL Albumin (3.5-5.0) g/dL Lipase (23-300) U/L Urine Color Yellow Urine Appearance Clear (Clear) Urine pH 6.0 (5.0-8.0) Ur Specific Rex 1.021 (1.001-1.035) Urine Protein Trace H (Negative) Urine Glucose (UA) Negative (Negative) Urine Ketones Negative (Negative) Urine Blood Moderate H (Negative) Urine Nitrite Negative (Negative) Urine Bilirubin Negative (Negative) Urine Urobilinogen <2.0 (<2.0) mg/dL Ur Leukocyte Esterase Trace H (Negative) Urine RBC 182 H (0-5) /hpf Urine WBC 14 H (0-5) /hpf Ur Squamous Epith Cells 3 (0-4) /hpf Urine Bacteria Rare H (None) /hpf Hyaline Casts 1 (0-2) /lpf Urine Mucus Many H (None) /hpf Urine HCG, Qual Not Detected (Not Detectd) 02/08/24 Range/Units 08:51 WBC (3.8-10.6) k/uL RBC (3.80-5.40) m/uL Hgb (11.4-16.0) gm/dL Hct (34.0-46.0) % MCV (80.0-100.0) fL MCH (25.0-35.0) pg MCHC (31.0-37.0) g/dL RDW (11.5-15.5) % Plt Count (150-450) k/uL MPV Neutrophils % % Lymphocytes % % Monocytes % % Eosinophils % % Basophils % % Neutrophils # (1.3-7.7) k/uL Lymphocytes # (1.0-4.8) k/uL Monocytes # (0-1.0) k/uL Eosinophils # (0-0.7) k/uL Basophils # (0-0.2) k/uL Sodium 140 (137-145) mmol/L Potassium 3.6 (3.5-5.1) mmol/L Chloride 111 H (98-107) mmol/L Carbon Dioxide 17 L (22-30) mmol/L Anion Gap 12 mmol/L BUN 8 (7-17) mg/dL Creatinine 0.57 (0.52-1.04) mg/dL Est GFR (CKD-EPI)AfAm >90 (>60 ml/min/1.73 sqM) Est GFR (CKD-EPI)NonAf >90 (>60 ml/min/1.73 sqM) Glucose 142 H (74-99) mg/dL Calcium 9.8 (8.4-10.2) mg/dL Total Bilirubin 0.7 (0.2-1.3) mg/dL AST 22 (14-36) U/L ALT 15 (4-34) U/L Alkaline Phosphatase 76 (38-126) U/L Total Protein 7.4 (6.3-8.2) g/dL Albumin 4.3 (3.5-5.0) g/dL Lipase 61 (23-300) U/L Urine Color Urine Appearance (Clear) Urine pH (5.0-8.0) Ur Specific Rex (1.001-1.035) Urine Protein (Negative) Urine Glucose (UA) (Negative) Urine Ketones (Negative) Urine Blood (Negative) Urine Nitrite (Negative) Urine Bilirubin (Negative) Urine Urobilinogen (<2.0) mg/dL Ur Leukocyte Esterase (Negative) Urine RBC (0-5) /hpf Urine WBC (0-5) /hpf Ur Squamous Epith Cells (0-4) /hpf Urine Bacteria (None) /hpf Hyaline Casts (0-2) /lpf Urine Mucus (None) /hpf Urine HCG, Qual (Not Detectd) Disposition Clinical Impression: Dysmenorrhea, Nausea & vomiting Disposition: HOME SELF-CARE Condition: Stable Instructions (If sedation given, give patient instructions): Abdominal Pain (ED) Additional Instructions: Please return to the Emergency Department if symptoms worsen or any other concerns. Prescriptions: Ketorolac [Toradol] 10 mg PO Q8HR #15 tab Ondansetron Odt [Zofran Odt] 4 mg PO Q8HR PRN #10 tab PRN Reason: Nausea Is patient prescribed a controlled substance at d/c from ED?: No Referrals: None,Stated [Primary Care Provider] - 1-2 days Time of Disposition: 11:22
[2024-02-08] MEDS: KETOROLAC 15 MG/ML 1 ML VIAL IVP STA ×2 (08:47→10:30)
[2024-02-08] MEDS: droPERidol 5 MG/2 ML VIAL IVP ONE ×2 (08:49→11:12)
[2024-02-08] MEDS: SODIUM CHLORIDE 0.9% 500 ML 500 ML IV STA (08:50)
[2024-02-08] MEDS: SODIUM CHLORIDE 0.9% 1,000 ML IV STA (08:50)
[2024-02-08 08:54] VITALS: RESP 18; TEMP 98
[2024-02-08 09:25] LABS: Basophils % (A) 0 %; Eosinophils # (A) 0.1 k/uL (0-0.7); Eosinophils % (A) 2 %; HCT 40.6 % (34.0-46.0); HGB 13.3 gm/dL (11.4-16.0); Lymphocytes # (A) 2.3 k/uL (1.0-4.8); Lymphocytes % (A) 34 %; MCH 31.3 pg (25.0-35.0); MCHC 32.7 g/dL (31.0-37.0); MCV 95.7 fL (80.0-100.0); Mean Platelet Volume 9.4; Monocytes # (A) 0.4 k/uL (0-1.0); Monocytes % (A) 6 %; Neutrophils # (A) 3.7 k/uL (1.3-7.7); Neutrophils % (A) 54 %; Platelet Count 288 k/uL (150-450); RBC 4.24 m/uL (3.80-5.40); RDW 13.1 % (11.5-15.5); WBC 6.9 k/uL (3.8-10.6)
[2024-02-08 09:34] LABS: ALT 15 U/L (4-34); AST 22 U/L (14-36); African American GFR (CKD) >90 (>60 ml/min/1.73 sqM); Albumin 4.3 g/dL (3.5-5.0); Alkaline Phosphatase 76 U/L (38-126); Anion Gap 12 mmol/L; Blood Urea Nitrogen 8 mg/dL (7-17); Calcium 9.8 mg/dL (8.4-10.2); Carbon Dioxide 17 mmol/L (22-30); Chloride 111 mmol/L (98-107); Glucose 142 mg/dL (74-99); Lipase 61 U/L (23-300); Non-African American GFR(CKD) >90 (>60 ml/min/1.73 sqM); Potassium 3.6 mmol/L (3.5-5.1); Sodium 140 mmol/L (137-145); Total Bilirubin 0.7 mg/dL (0.2-1.3); Total Protein 7.4 g/dL (6.3-8.2)
[2024-02-08 11:04] LABS: Appearance,Urine Clear (Clear); Bacteria,Urine Rare /hpf; Bilirubin,Urine Negative (Negative); Blood,Urine Moderate (Negative); Color,Urine Yellow; Glucose,Urine (UA) Negative (Negative); Hyaline Casts,Urine 1 /lpf (0-2); Ketones,Urine Negative (Negative); Leukocyte Esterase,Urine Trace (Negative); Mucus,Urine Many /hpf; Nitrite,Urine Negative (Negative); Protein,Urine Trace (Negative); RBC,Urine 182 /hpf (0-5); Specific Gravity,Urine 1.021 (1.001-1.035); Squamous Epithelial Cell,Urine 3 /hpf (0-4); Urobilinogen,Urine <2.0 mg/dL (<2.0); WBC,Urine 14 /hpf (0-5)
[2024-02-08] MEDS: ACET/COD 300 MG/30 MG STARTER PACK 6 TAB BTL PO STA (11:25)
[2024-02-08 11:31] VITALS: BP 119/79; PULSE 50
== END 2024-02-08 11:29 | disposition home or self-care (01) ==
LOC: EC 08:26
DX: N94.6 Dysmenorrhea, unspecified (principal); R11.2 Nausea with vomiting, unspecified
CPT/HCPCS: 36415; 80053; 83690; 85025; 81001; 81025; 99284; 96374; 96375; 96376 ×2; 96361 ×2; J1885; J1790

== ENCOUNTER 2024-05-21 10:25 | Emergency (ER) | payer OTHER ==
[2024-05-21] MEDS: SODIUM CHLORIDE 0.9% 2,000 ML IV STA (10:52)
[2024-05-21] MEDS: HYDROmorphone 0.5 MG/0.5 ML SYRINGE IVP STA (10:54)
[2024-05-21] MEDS: KETOROLAC 15 MG/ML 1 ML VIAL IVP STA (10:54)
[2024-05-21] MEDS: droPERidol 5 MG/2 ML VIAL IVP ONE ×2 (10:54→12:58)
[2024-05-21 10:55] LABS: Basophils % (A) 0 %; Eosinophils # (A) 0.2 k/uL (0-0.7); Eosinophils % (A) 2 %; HCT 40.7 % (34.0-46.0); HGB 13.7 gm/dL (11.4-16.0); Lymphocytes # (A) 2.5 k/uL (1.0-4.8); Lymphocytes % (A) 31 %; MCH 32.2 pg (25.0-35.0); MCHC 33.6 g/dL (31.0-37.0); MCV 95.7 fL (80.0-100.0); Mean Platelet Volume 8.4; Monocytes # (A) 0.3 k/uL (0-1.0); Monocytes % (A) 3 %; Neutrophils # (A) 4.9 k/uL (1.3-7.7); Neutrophils % (A) 61 %; Platelet Count 279 k/uL (150-450); RBC 4.25 m/uL (3.80-5.40); RDW 12.8 % (11.5-15.5); WBC 8.1 k/uL (3.8-10.6)
--- NOTE | 2024-05-21 10:57 | ED ---
Abdominal Pain HPI - General Chief Complaint: Abdominal Pain Stated Complaint: Vomiting Time Seen by Provider: 05/21/24 10:33 Source: patient, RN notes reviewed Mode of arrival: ambulatory Limitations: no limitations - History of Present Illness Initial Comments: 29-year-old female presents emergency department complaint of severe lower abdominal pain, nausea vomiting. Patient states it was sudden onset of symptoms this morning. She states is a recurrent issue and only happens around her menstrual cycle. Patient denies any flank pain no fevers or chills no chest pain. Nothing is making her pain better. Patient states that she has no chance of . - Related Data Previous Rx's Medication Instructions Recorded Ketorolac [Toradol] 10 mg PO Q8HR #15 tab 05/21/24 Ondansetron Odt [Zofran Odt] 4 mg PO Q8HR PRN #10 tab 05/21/24 Allergies Allergy/AdvReac Type Severity Reaction Status Date / Time No Known Allergies Allergy Verified 05/21/24 13:27 Review of Systems ROS Statement: Those systems with pertinent positive or pertinent negative responses have been documented in the HPI. ROS Other: All systems not noted in ROS Statement are negative. Past Medical History Past Medical History: No Reported History Additional Past Medical History / Comment(s): back pain History of Any Multi-Drug Resistant Organisms: None Reported Past Surgical History: Section Additional Past Surgical History / Comment(s): D&C Past Psychological History: No Psychological Hx Reported Smoking Status: Never smoker Past Alcohol Use History: Rare Past Drug Use History: Marijuana General Exam Limitations: no limitations General appearance: alert, in no apparent distress Head exam: Present: atraumatic, normocephalic, normal inspection Respiratory exam: Present: normal lung sounds bilaterally. Absent: respiratory distress, wheezes, rales, rhonchi, stridor Cardiovascular Exam: Present: regular rate, normal rhythm, normal heart sounds. Absent: systolic murmur, diastolic murmur, rubs, gallop, clicks GI/Abdominal exam: Present: soft, tenderness, normal bowel sounds. Absent: distended, guarding, rebound, rigid Course Vital Signs 05/21/24 05/21/24 05/21/24 10:25 11:28 12:00 Temperature Pulse Rate 71 86 50 L Respiratory 26 H 20 20 Rate Blood Pressure 113/66 125/68 113/74 O2 Sat by Pulse 100 98 99 Oximetry 05/21/24 13:37 Temperature 98.0 F Pulse Rate 52 L Respiratory 18 Rate Blood Pressure 104/61 O2 Sat by Pulse 100 Oximetry Medical Decision Making - Medical Decision Making Was pt. sent in by a medical professional or institution (, SUBHASH, APPLIED STATISTICIAN, urgent care, hospital, or custodial...) When possible be specific @ -No Did you speak to anyone other than the patient for history (EMS, parent, family, police, friend...)? What history was obtained from this source @ -No Did you review nursing and triage notes (agree or disagree)? Why? @ -I reviewed and agree with nursing and triage notes Were old charts reviewed (outside hosp., previous admission, EMS record, old EKG, old radiological studies, urgent care reports/EKG's, custodial records)? Report findings @ -No old charts were reviewed Differential Diagnosis (chest pain, altered mental status, abdominal pain women, abdominal pain men, vaginal bleeding, weakness, fever, dyspnea, syncope, headache, dizziness, GI bleed, back pain, seizure, CVA, palpatations, mental h ealth, musculoskeletal)? @ -Differential Abdominal Pain Women: Appendicitis, Cholecystitis, diverticulosis, ischemic bowel, pancreatitis, hepatitis, UTI, gastroenteritis, AAA, incarcerated hernia, bowel obstruction, constipation, inflammatory bowel, hepatitis, peptic ulcer disease, splenic infarction, perforated viscus, vulvitis, ovarian torsion, PID, kidney stone, placenta abruption, this is not meant to be an all-inclusive list EKG interpreted by me (3pts min.). @ -None X-rays interpreted by me (1pt min.). @ -None done CT interpreted by me (1pt min.). @ -None done U/S interpreted by me (1pt. min.). @ -None done What testing was considered but not performed or refused? (CT, X-rays, U/S, l abs)? Why? @ -None What meds were considered but not given or refused? Why? @ -None Did you discuss the management of the patient with other professionals (professionals i.e. SUBHASH Strange, APPLIED STATISTICIAN, lab, RT, psych nurse, clinical social worker, adult ministries director, teacher, vessel traffic officer, classification case manager)? Give summary @ -No Was smoking cessation discussed for >3mins.? @ -No Was critical care preformed (if so, how long)? @ -No Were there social determinants of health that impacted care today? How? (Homelessness, low income, unemployed, alcoholism, drug addiction, transportation, low edu. Level, literacy, decrease access to med. care, alf, rehab)? @ -No Was there de-escalation of care discussed even if they declined (Discuss DNR or withdrawal of care, Hospice)? DNR status @ -No What co-morbidities impacted this encounter? (DM, HTN, Smoking, COPD, CAD, Cancer, CVA, ARF, Chemo, Hep., AIDS, mental health diagnosis, sleep apnea, morbid obesity)? @ -None Was patient admitted / discharged? Hospital course, mention meds given and route, prescriptions, significant lab abnormalities, going to OR and other pertinent info. @ -[Discharge patient feels greatly improved at this time. Patient seen for nausea vomiting is a recurrent issue may be related to marijuana use. Patient advised to discontinue. Patient states this is from her menstrual cycle. Patient did have mild acidosis but was given 2 L of fluid states that she wants to be discharged home. Patient discharged with antiemetics. Undiagnosed new problem with uncertain prognosis? @ -No Drug Therapy requiring intensive monitoring for toxicity (Heparin, Nitro, Ins ulin, Cardizem)? @ -No Were any procedures done? @ -No Diagnosis/symptom? @ -Nausea vomiting, abdominal pain Acute, or Chronic, or Acute on Chronic? @ -Acute Uncomplicated (without systemic symptoms) or Complicated (systemic symptoms)? @ -Uncomplicated Side effects of treatment? @ -No Exacerbation, Progression, or Severe Exacerbation? @ -No Poses a threat to life or bodily function? How? (Chest pain, USA, [place], pneumonia, PE, COPD, DKA, ARF, appy, cholecystitis, CVA, Diverticulitis, Homicidal, Margo cidal, threat to staff... and all critical care pts) @ -No - Lab Data Result diagrams: 05/21/24 10:47 05/21/24 10:47 Lab Results 05/21/24 05/21/24 05/21/24 Range/Units 10:47 10:47 13:28 WBC 8.1 (3.8-10.6) k/uL RBC 4.25 (3.80-5.40) m/uL Hgb 13.7 (11.4-16.0) gm/dL Hct 40.7 (34.0-46.0) % MCV 95.7 (80.0-100.0) fL MCH 32.2 (25.0-35.0) pg MCHC 33.6 (31.0-37.0) g/dL RDW 12.8 (11.5-15.5) % Plt Count 279 (150-450) k/uL MPV 8.4 Neutrophils % 61 % Lymphocytes % 31 % Monocytes % 3 % Eosinophils % 2 % Basophils % 0 % Neutrophils # 4.9 (1.3-7.7) k/uL Lymphocytes # 2.5 (1.0-4.8) k/uL Monocytes # 0.3 (0-1.0) k/uL Eosinophils # 0.2 (0-0.7) k/uL Basophils # 0.0 (0-0.2) k/uL Sodium 139 (137-145) mmol/L Potassium 3.7 (3.5-5.1) mmol/L Chloride 114 H (98-107) mmol/L Carbon Dioxide 14 L (22-30) mmol/L Anion Gap 11 mmol/L BUN 9 (7-17) mg/dL Creatinine 0.58 (0.52-1.04) mg/dL Est GFR (CKD-EPI)AfAm >90 (>60 ml/min/1.73 sqM) Est GFR (CKD-EPI)NonAf >90 (>60 ml/min/1.73 sqM) Glucose 136 H (74-99) mg/dL Calcium 9.9 (8.4-10.2) mg/dL Total Bilirubin 0.8 (0.2-1.3) mg/dL AST 27 (14-36) U/L ALT 16 (4-34) U/L Alkaline Phosphatase 77 (38-126) U/L Total Protein 7.5 (6.3-8.2) g/dL Albumin 4.5 (3.5-5.0) g/dL Lipase 47 (23-300) U/L Urine Color Yellow Urine Appearance Cloudy H (Clear) Urine pH 6.0 (5.0-8.0) Ur Specific Crosby 1.026 (1.001-1.035) Urine Protein Trace H (Negative) Urine Glucose (UA) Negative (Negative) Urine Ketones 3+ H (Negative) Urine Blood Negative (Negative) Urine Nitrite Positive H (Negative) Urine Bilirubin Negative (Negative) Urine Urobilinogen <2.0 (<2.0) mg/dL Ur Leukocyte Esterase Negative (Negative) Urine RBC 1 (0-5) /hpf Urine WBC 5 (0-5) /hpf Ur Squamous Epith Cells 5 H (0-4) /hpf Urine Bacteria Occasional H (None) /hpf Urine Mucus Many H (None) /hpf Urine HCG, Qual (Not Detectd) 05/21/24 Range/Units 13:28 WBC (3.8-10.6) k/uL RBC (3.80-5.40) m/uL Hgb (11.4-16.0) gm/dL Hct (34.0-46.0) % MCV (80.0-100.0) fL MCH (25.0-35.0) pg MCHC (31.0-37.0) g/dL RDW (11.5-15.5) % Plt Count (150-450) k/uL MPV Neutrophils % % Lymphocytes % % Monocytes % % Eosinophils % % Basophils % % Neutrophils # (1.3-7.7) k/uL Lymphocytes # (1.0-4.8) k/uL Monocytes # (0-1.0) k/uL Eosinophils # (0-0.7) k/uL Basophils # (0-0.2) k/uL Sodium (137-145) mmol/L Potassium (3.5-5.1) mmol/L Chloride (98-107) mmol/L Carbon Dioxide (22-30) mmol/L Anion Gap mmol/L BUN (7-17) mg/dL Creatinine (0.52-1.04) mg/dL Est GFR (CKD-EPI)AfAm (>60 ml/min/1.73 sqM) Est GFR (CKD-EPI)NonAf (>60 ml/min/1.73 sqM) Glucose (74-99) mg/dL Calcium (8.4-10.2) mg/dL Total Bilirubin (0.2-1.3) mg/dL AST (14-36) U/L ALT (4-34) U/L Alkaline Phosphatase (38-126) U/L Total Protein (6.3-8.2) g/dL Albumin (3.5-5.0) g/dL Lipase (23-300) U/L Urine Color Urine Appearance (Clear) Urine pH (5.0-8.0) Ur Specific Crosby (1.001-1.035) Urine Protein (Negative) Urine Glucose (UA) (Negative) Urine Ketones (Negative) Urine Blood (Negative) Urine Nitrite (Negative) Urine Bilirubin (Negative) Urine Urobilinogen (<2.0) mg/dL Ur Leukocyte Esterase (Negative) Urine RBC (0-5) /hpf Urine WBC (0-5) /hpf Ur Squamous Epith Cells (0-4) /hpf Urine Bacteria (None) /hpf Urine Mucus (None) /hpf Urine HCG, Qual Not Detected (Not Detectd) Disposition Clinical Impression: Abdominal pain, Nausea & vomiting Disposition: HOME SELF-CARE Condition: Stable Instructions (If sedation given, give patient instructions): Abdominal Pain (ED) Additional Instructions: Please return to the Emergency Department if symptoms worsen or any other nathalie rns. Prescriptions: Ketorolac [Toradol] 10 mg PO Q8HR #15 tab Ondansetron Odt [Zofran Odt] 4 mg PO Q8HR PRN #10 tab PRN Reason: Nausea Is patient prescribed a controlled substance at d/c from ED?: No Referrals: None,Stated [Primary Care Provider] - 1-2 days Time of Disposition: 14:29
[2024-05-21 11:08] LABS: ALT 16 U/L (4-34); AST 27 U/L (14-36); African American GFR (CKD) >90 (>60 ml/min/1.73 sqM); Albumin 4.5 g/dL (3.5-5.0); Alkaline Phosphatase 77 U/L (38-126); Anion Gap 11 mmol/L; Blood Urea Nitrogen 9 mg/dL (7-17); Calcium 9.9 mg/dL (8.4-10.2); Carbon Dioxide 14 mmol/L (22-30); Chloride 114 mmol/L (98-107); Glucose 136 mg/dL (74-99); Lipase 47 U/L (23-300); Non-African American GFR(CKD) >90 (>60 ml/min/1.73 sqM); Potassium 3.7 mmol/L (3.5-5.1); Sodium 139 mmol/L (137-145); Total Bilirubin 0.8 mg/dL (0.2-1.3); Total Protein 7.5 g/dL (6.3-8.2)
[2024-05-21 13:39] VITALS: RESP 18
[2024-05-21] MEDS: METOCLOPRAMIDE 5 MG/ML 2 ML VIAL IVP STA (13:39)
[2024-05-21 13:46] LABS: Appearance,Urine Cloudy (Clear); Bacteria,Urine Occasional /hpf; Bilirubin,Urine Negative (Negative); Blood,Urine Negative (Negative); Color,Urine Yellow; Glucose,Urine (UA) Negative (Negative); Ketones,Urine 3+ (Negative); Leukocyte Esterase,Urine Negative (Negative); Mucus,Urine Many /hpf; Nitrite,Urine Positive (Negative); Protein,Urine Trace (Negative); RBC,Urine 1 /hpf (0-5); Specific Gravity,Urine 1.026 (1.001-1.035); Squamous Epithelial Cell,Urine 5 /hpf (0-4); Urobilinogen,Urine <2.0 mg/dL (<2.0); WBC,Urine 5 /hpf (0-5)
[2024-05-21] MEDS: cefTRIAXone IN SWFI 1,000 MG/10 ML SYRINGE IVP STA (14:06)
[2024-05-21 14:41] VITALS: BP 106/53; PULSE 54; TEMP 97.5
== END 2024-05-21 14:42 | disposition home or self-care (01) ==
LOC: EC 10:25
DX: R10.30 Lower abdominal pain, unspecified (principal); R11.2 Nausea with vomiting, unspecified
CPT/HCPCS: 36415; 80053; 83690; 85025; 81001; 81025; 99284; 96374; 96375 ×4; 96376; 96361 ×2; J2765; J0696; J1885; J1170; J1790

== ENCOUNTER 2024-05-23 17:42 | Emergency (ER) | payer OTHER ==
[2024-05-23 17:56] VITALS: TEMP 97.4
--- NOTE | 2024-05-23 18:10 | ED ---
Abdominal Pain HPI - General Chief Complaint: Abdominal Pain Stated Complaint: Abd pain Time Seen by Provider: 05/23/24 18:00 Source: patient, RN notes reviewed Mode of arrival: ambulatory Limitations: no limitations - History of Present Illness Initial Comments: This is a 29-year-old female presents emergency department chief complaint abdominal pain, nausea and vomiting. Patient states that this pain is the same as when she was seen in the emergency department 2 days ago. She states that she has had a decreased appetite and has not been able to keep down food over the past 48 hours due to continued symptoms of abdominal pain. States that the pain is generalized. Has a previous abdominal surgical history of section. Denies hematemesis, chest pain, shortness of breath, headaches, dizziness. Not attempted take any medications at home to alleviate symptoms. - Related Data Previous Rx's Medication Instructions Recorded Ketorolac [Toradol] 10 mg PO Q8HR #15 tab 05/21/24 Ondansetron Odt [Zofran Odt] 4 mg PO Q8HR PRN #10 tab 05/21/24 Allergies Allergy/AdvReac Type Severity Reaction Status Date / Time No Known Allergies Allergy Verified 05/21/24 13:27 Review of Systems ROS Statement: Those systems with pertinent positive or pertinent negative responses have been documented in the HPI. ROS Other: All systems not noted in ROS Statement are negative. Past Medical History Past Medical History: No Reported History Additional Past Medical History / Comment(s): back pain History of Any Multi-Drug Resistant Organisms: None Reported Past Surgical History: Section Additional Past Surgical History / Comment(s): D&C Past Psychological History: No Psychological Hx Reported Smoking Status: Never smoker Past Alcohol Use History: Rare Past Drug Use History: Marijuana General Exam Limitations: no limitations General appearance: alert, in no apparent distress Head exam: Present: atraumatic, normocephalic, normal inspection Eye exam: Present: normal appearance, PERRL, EOMI. Absent: scleral icterus, conjunctival injection, periorbital swelling ENT exam: Present: normal exam, mucous membranes moist Neck exam: Present: normal inspection. Absent: tenderness, meningismus, lymphadenopathy Respiratory exam: Present: normal lung sounds bilaterally. Absent: respiratory distress, wheezes, rales, rhonchi, stridor Cardiovascular Exam: Present: regular rate, normal rhythm, normal heart sounds. Absent: systolic murmur, diastolic murmur, rubs, gallop, clicks GI/Abdominal exam: Present: soft, tenderness (diffuse), normal bowel sounds. Absent: distended, guarding, rebound, rigid Extremities exam: Present: normal inspection, full ROM, normal capillary refill. Absent: tenderness, pedal edema, joint swelling, calf tenderness Back exam: Present: normal inspection Neurological exam: Present: alert, oriented X3, CN II-XII intact Psychiatric exam: Present: normal affect, normal mood Skin exam: Present: warm, dry, intact, normal color. Absent: rash Course Vital Signs 05/23/24 05/23/24 17:52 18:30 Temperature 97.4 F L Pulse Rate 69 64 Respiratory 18 20 Rate Blood Pressure 107/60 O2 Sat by Pulse 100 98 Oximetry Medical Decision Making - Medical Decision Making Was pt. sent in by a medical professional or institution (SUBHASH Strange, BELLSTAND ATTENDANT, urgent care, hospital, or longterm...) When possible be specific @ -No Did you speak to anyone other than the patient for history (EMS, parent, family, police, friend...)? What history was obtained from this source @ -No Did you review nursing and triage notes (agree or disagree)? Why? @ -I reviewed and agree with nursing and triage notes Were old charts reviewed (outside hosp., previous admission, EMS record, old EKG, old radiological studies, urgent care reports/EKG's, longterm records)? Report findings @ -reviewed the patient's chart note from 05/21/2024 where her CBC was u nremarkable, she had mild signs of acidosis on CMP, hcg negative. Differential Diagnosis (chest pain, altered mental status, abdominal pain women, abdominal pain men, vaginal bleeding, weakness, fever, dyspnea, syncope, headache, dizziness, GI bleed, back pain, seizure, CVA, palpatations, mental health, musculoskeletal)? @ -Differential Abdominal Pain Women: Appendicitis, Cholecystitis, diverticulosis, ischemic bowel, pancreatitis, hepatitis, UTI, gastroenteritis, AAA, incarcerated hernia, bowel obstruction, constipation, inflammatory bowel, hepatitis, peptic ulcer disease, splenic infarction, perforated viscus, vulvitis, ovarian torsion, PID, kidney stone, placenta abruption, this is not meant to be an all-inclusive list EKG interpreted by me (3pts min.). @ -none X-rays interpreted by me (1pt min.). @ -None done CT interpreted by me (1pt min.). @ -None done U/S interpreted by me (1pt. min.). @ -None done What testing was considered but not performed or refused? (CT, X-rays, U/S, labs)? Why? @ -None What meds were considered but not given or refused? Why? @ -None Did you discuss the management of the patient with other professionals (professionals i.e. , PA, BELLSTAND ATTENDANT, lab, RT, psych nurse, social welfare administrator, power press operator, teacher, industrial relations officer, oil field caser)? Give summary @ -No Was smoking cessation discussed for >3mins.? @ -No Was critical care preformed (if so, how long)? @ -No Were there social determinants of health that impacted care today? How? (Homelessness, low income, unemployed, alcoholism, drug addiction, transportation, low edu. Level, literacy, decrease access to med. care, fpc, rehab)? @ -No Was there de-escalation of care discussed even if they declined (Discuss DNR or withdrawal of care, Hospice)? DNR status @ -No What co-morbidities impacted this encounter? (DM, HTN, Smoking, COPD, CAD, Cancer, CVA, ARF, Chemo, Hep., AIDS, mental health diagnosis, sleep apnea, morbid obesity)? @ -None Was patient admitted / discharged? Hospital course, mention meds given and route, prescriptions, significant lab abnormalities, going to OR and other pertinent info. @ -29-year-old female generalized abdominal pain, nausea and vomiting. On examination patient states that she is having diffuse abdominal pain. Her abdomen is soft with no signs of rebound tenderness or rigidity. She is symptomatically treated with IV fluids and droperidol but states is in her nausea in the past. On reevaluation, patient is resting comfortably and asleep in the room. Vitals are stable. He unremarkable, CMP reveals a mild hypokalemia 3.3. Mild acidosis which is likely secondary to patient having episodes of emesis. Discussed with the patient recommendation is a urine sample, however patient states that she is not experiencing urinary symptoms of dysuria, hematuria, increase in urinary frequency or urgency as therefore not concern for urinary tract infection is declining needing a urine sample. Patient states that she is feeling better and is requesting discharge. All questions answered at bedside and strict return parameters discussed with the patient she is verbalized understanding. Discussed with Dr. Velazquez Undiagnosed new problem with uncertain prognosis? @ -No Drug Therapy requiring intensive monitoring for toxicity (Heparin, Nitro, Insulin, Cardizem)? @ -No Were any procedures done? @ -No Diagnosis/symptom? @ -abdominal pain, nausea and vomiting Acute, or Chronic, or Acute on Chronic? @ -acute Uncomplicated (without systemic symptoms) or Complicated (systemic symptoms)? @ -uncomplicated Side effects of treatment? @ -No Exacerbation, Progression, or Severe Exacerbation? @ -No Poses a threat to life or bodily function? How? (Chest pain, USA, [place], pneumonia, PE, COPD, DKA, ARF, appy, cholecystitis, CVA, Diverticulitis, Homicidal, Suicidal, threat to staff... and all critical care pts) @ -No - Lab Data Result diagrams: 05/23/24 18:23 05/23/24 18:23 Lab Results 05/23/24 05/23/24 Range/Units 18:23 18:23 WBC 8.8 (3.8-10.6) k/uL RBC 3.90 (3.80-5.40) m/uL Hgb 12.4 (11.4-16.0) gm/dL Hct 36.2 (34.0-46.0) % MCV 92.8 (80.0-100.0) fL MCH 31.8 (25.0-35.0) pg MCHC 34.2 (31.0-37.0) g/dL RDW 12.9 (11.5-15.5) % Plt Count 237 (150-450) k/uL MPV 8.4 Neutrophils % 77 % Lymphocytes % 15 % Monocytes % 5 % Eosinophils % 1 % Basophils % 0 % Neutrophils # 6.8 (1.3-7.7) k/uL Lymphocytes # 1.3 (1.0-4.8) k/uL Monocytes # 0.5 (0-1.0) k/uL Eosinophils # 0.1 (0-0.7) k/uL Basophils # 0.0 (0-0.2) k/uL Sodium 138 (137-145) mmol/L Potassium 3.3 L (3.5-5.1) mmol/L Chloride 113 H (98-107) mmol/L Carbon Dioxide 12 L (22-30) mmol/L Anion Gap 13 mmol/L BUN 10 (7-17) mg/dL Creatinine 0.52 (0.52-1.04) mg/dL Est GFR (CKD-EPI)AfAm >90 (>60 ml/min/1.73 sqM) Est GFR (CKD-EPI)NonAf >90 (>60 ml/min/1.73 sqM) Glucose 87 (74-99) mg/dL Calcium 9.4 (8.4-10.2) mg/dL Total Bilirubin 0.7 (0.2-1.3) mg/dL AST 33 (14-36) U/L ALT 25 (4-34) U/L Alkaline Phosphatase 69 (38-126) U/L Total Protein 6.8 (6.3-8.2) g/dL Albumin 4.2 (3.5-5.0) g/dL Amylase 42 (30-110) U/L Lipase 43 (23-300) U/L Disposition Clinical Impression: Abdominal pain, Nausea and vomiting Disposition: HOME SELF-CARE Condition: Good Instructions (If sedation given, give patient instructions): Acute Nausea and Vomiting (ED) Additional Instructions: Return to the emergency department if your symptoms worsen or not improved. Is patient prescribed a controlled substance at d/c from ED?: No Referrals: None,Stated [Primary Care Provider] - 1-2 days Time of Disposition: 19:12
[2024-05-23] MEDS: PANTOPRAZOLE 40 MG/10 ML VIAL IVP STA (18:16)
[2024-05-23] MEDS: droPERidol 5 MG/2 ML VIAL IVP ONE (18:16)
[2024-05-23] MEDS: ONDANSETRON 4 MG/2 ML VIAL IVP STA (18:17)
[2024-05-23] MEDS: SODIUM CHLORIDE 0.9% 2,000 ML IV STA (18:17)
[2024-05-23 18:34] LABS: Basophils % (A) 0 %; Eosinophils # (A) 0.1 k/uL (0-0.7); Eosinophils % (A) 1 %; HCT 36.2 % (34.0-46.0); HGB 12.4 gm/dL (11.4-16.0); Lymphocytes # (A) 1.3 k/uL (1.0-4.8); Lymphocytes % (A) 15 %; MCH 31.8 pg (25.0-35.0); MCHC 34.2 g/dL (31.0-37.0); MCV 92.8 fL (80.0-100.0); Mean Platelet Volume 8.4; Monocytes # (A) 0.5 k/uL (0-1.0); Monocytes % (A) 5 %; Neutrophils # (A) 6.8 k/uL (1.3-7.7); Neutrophils % (A) 77 %; Platelet Count 237 k/uL (150-450); RDW 12.9 % (11.5-15.5); WBC 8.8 k/uL (3.8-10.6)
[2024-05-23 18:44] LABS: ALT 25 U/L (4-34); AST 33 U/L (14-36); African American GFR (CKD) >90 (>60 ml/min/1.73 sqM); Albumin 4.2 g/dL (3.5-5.0); Alkaline Phosphatase 69 U/L (38-126); Amylase 42 U/L (30-110); Anion Gap 13 mmol/L; Blood Urea Nitrogen 10 mg/dL (7-17); Calcium 9.4 mg/dL (8.4-10.2); Carbon Dioxide 12 mmol/L (22-30); Chloride 113 mmol/L (98-107); Glucose 87 mg/dL (74-99); Lipase 43 U/L (23-300); Non-African American GFR(CKD) >90 (>60 ml/min/1.73 sqM); Potassium 3.3 mmol/L (3.5-5.1); Sodium 138 mmol/L (137-145); Total Bilirubin 0.7 mg/dL (0.2-1.3); Total Protein 6.8 g/dL (6.3-8.2)
[2024-05-23] MEDS: POTASSIUM CHLORIDE ER 20 MEQ TAB.ER PO STA (19:14)
[2024-05-23 19:26] VITALS: BP 116/73; PULSE 50; RESP 14
== END 2024-05-23 19:26 | disposition home or self-care (01) ==
LOC: EC 17:42
DX: R10.9 Unspecified abdominal pain (principal); R11.2 Nausea with vomiting, unspecified; E87.6 Hypokalemia; E87.20 Acidosis, unspecified
CPT/HCPCS: 99284; 96374; 96375 ×2; 96361; 36415; 80053; 82150; 83690; 85025; J2405; J1790; J2470

== ENCOUNTER 2024-05-25 04:56 | Emergency (ER) | payer OTHER ==
--- NOTE | 2024-05-25 05:08 | ED ---
Nausea/Vomiting/Diarrhea HPI <Julio Del Rio - Last Filed: 05/25/24 11:01> - General Source: patient, RN notes reviewed, old records reviewed Mode of arrival: ambulatory Limitations: no limitations - History of Present Illness MD complaint: nausea, vomiting, diarrhea, abdominal pain -: days(s) Description of Vomiting: food contents, watery, bilious Description of Diarrhea: water, mucous Location: diffuse Severity: severe Severity scale (1-10): 10 Quality: stabbing Improves with: none, bowel movement <Bacilio Guzman - Last Filed: 05/28/24 01:56> - General Stated complaint: Stomach spasms, vomiting Time Seen by Provider: 05/25/24 05:06 - History of Present Illness Initial comments: This is a 29-year-old female to ER for severe abdominal pain with persistent nausea vomiting here in the ER this patient has multiple recent ER visits for significant nausea vomiting does admit to marijuana use. No fevers no pain (Bacilio Guzman) - Related Data Previous Rx's Medication Instructions Recorded Ketorolac [Toradol] 10 mg PO Q8HR #15 tab 05/21/24 Ondansetron Odt [Zofran Odt] 4 mg PO Q8HR PRN #10 tab 05/21/24 Allergies Allergy/AdvReac Type Severity Reaction Status Date / Time No Known Allergies Allergy Verified 05/21/24 13:27 Review of Systems ROS Other: All systems not noted in ROS Statement are negative. <Julio Del Rio - Last Filed: 05/25/24 11:01> ROS Other: All systems not noted in ROS Statement are negative. <Bacilio Guzman - Last Filed: 05/28/24 01:56> ROS Statement: Those systems with pertinent positive or pertinent negative responses have been documented in the HPI. Past Medical History Past Medical History: No Reported History Additional Past Medical History / Comment(s): back pain History of Any Multi-Drug Resistant Organisms: None Reported Past Surgical History: Section Additional Past Surgical History / Comment(s): D&C Past Psychological History: No Psychological Hx Reported Smoking Status: Never smoker Past Alcohol Use History: Rare Past Drug Use History: Marijuana <Bacilio Guzman - Last Filed: 05/28/24 01:56> General Exam Limitations: no limitations General appearance: alert, in no apparent distress, anxious Head exam: Present: atraumatic, normocephalic, normal inspection Eye exam: Present: normal appearance, PERRL, EOMI. Absent: scleral icterus, conjunctival injection, periorbital swelling ENT exam: Present: normal exam, mucous membranes moist Neck exam: Present: normal inspection. Absent: tenderness, meningismus, lymphadenopathy Respiratory exam: Present: normal lung sounds bilaterally. Absent: respiratory distress, wheezes, rales, rhonchi, stridor Cardiovascular Exam: Present: regular rate, normal rhythm, normal heart sounds. Absent: systolic murmur, diastolic murmur, rubs, gallop, clicks GI/Abdominal exam: Present: soft, normal bowel sounds. Absent: distended, tenderness, guarding, rebound, rigid Extremities exam: Present: normal inspection, full ROM, normal capillary refill. Absent: tenderness, pedal edema, joint swelling, calf tenderness Back exam: Present: normal inspection Neurological exam: Present: alert, oriented X3, CN II-XII intact Psychiatric exam: Present: normal affect, normal mood Skin exam: Present: warm, dry, intact, normal color. Absent: rash <Bacilio Guzman - Last Filed: 05/28/24 01:56> Course <Bacilio Guzman - Last Filed: 05/28/24 01:56> Vital Signs 05/25/24 05/25/24 05/25/24 05:08 06:08 10:00 Pulse Rate 92 64 64 Respiratory 16 16 16 Rate Blood Pressure 106/66 108/74 O2 Sat by Pulse 98 97 98 Oximetry 05/25/24 05/25/24 10:59 11:16 Pulse Rate 53 L 64 Respiratory 16 16 Rate Blood Pressure 106/73 102/64 O2 Sat by Pulse 97 97 Oximetry - Reevaluation(s) Reevaluation #1: 05/25/24 06:39 Medical records reviewed (Bacilio Guzman) Reevaluation #2: 05/25/24 06:39 Patient symptoms improved (Bacilio Guzman) Reevaluation #3: 05/25/24 06:39 Patient informed of results and questions answered (Bacilio Guzman) Reevaluation #4: Was pt. sent in by a medical professional or institution (VANESA Strange, OCCUPATIONAL THERAPY SPECIALIST, urgent care, hospital, or shelter...) When possible be specific @ -no Did you speak to anyone other than the patient for history (EMS, parent, family, police, friend...)? What history was obtained from this source @ -no Did you review nursing and triage notes (agree or disagree)? Why? @ -agree Are old charts reviewed (outside hosp., previous admission, EMS record, old EKG, old radiological studies, urgent care reports/EKG's, shelter records)? Report findings @ -yes Differential Diagnosis (chest pain, altered mental status, abdominal pain women, abdominal pain men, vaginal bleeding, weakness, fever, dyspnea, syncope, headache, dizziness, GI bleed, back pain, seizure, CVA, palpatations, mental health, musculoskeletal)? @ -prior EKG interpreted by me (3pts min.). @ -no X-rays interpreted by me (1pt min.). @ -no CT interpreted by me (1pt min.). @ -no U/S interpreted by me (1pt. min.). @ -no What testing was considered but not performed or refused? (CT, X-rays, U/S, labs)? Why? @ -none What meds were considered but not given or refused? Why? @ -none Did you discuss the management of the patient with other professionals (professionals i.e. VANESA Strange, OCCUPATIONAL THERAPY SPECIALIST, lab, RT, psych nurse, community mental health social worker, hogshead mat inspector, teacher, compliance review officer, case resolution specialist)? Give summary @ -no Was smoking cessation discussed for >3mins.? @ -no Was critical care preformed (if so, how long)? @ -no Were there social determinants of health that impacted care today? How? (Homelessness, low income, unemployed, alcoholism, drug addiction, transportation, low edu. Level, literacy, decrease access to med. care, snf, rehab)? @ -none Was there de-escalation of care discussed even if they declined (Discuss DNR or withdrawal of care, Hospice)? DNR status @ -no What co-morbidities impacted this encounter? (DM, HTN, Smoking, COPD, CAD, Cancer, CVA, ARF, Chemo, Hep., AIDS, mental health diagnosis, sleep apnea, morbid obesity)? @ -none Was patient admitted / discharged? Hospital course, mention meds given and route, prescriptions, significant lab abnormalities, going to OR and other pertinent info. @ - 29 female with the ER with cyclic vomiting syndrome, symptoms improved and patient can be discharged home Dishcarge Undiagnosed new problem with uncertain prognosis? @ -no Drug Therapy requiring intensive monitoring for toxicity (Heparin, Nitro, Insulin, Cardizem)? @ -no Were any procedures done? @ -no Diagnosis/symptom? @ -Clinic vomiting syndrome Acute, or Chronic, or Acute on Chronic? @ -Acute Uncomplicated (without systemic symptoms) or Complicated (systemic symptoms)? @ -Complicated Side effects of treatment? @ -no Exacerbation, Progression, or Severe Exacerbation? @ -exacerbation Poses a threat to life or bodily function? How? (Chest pain, USA, NC, pneumonia, PE, COPD, DKA, ARF, appy, cholecystitis, CVA, Diverticulitis, Homicidal, Suicidal, threat to staff... and all critical care pts) @ -yes (Bacilio Guzman) Reevaluation #5: Differential Abdominal Pain Women: Appendicitis, Cholecystitis, diverticulosis, ischemic bowel, pancreatitis, hepatitis, UTI, gastroenteritis, AAA, incarcerated hernia, bowel obstruction, constipation, inflammatory bowel, hepatitis, peptic ulcer disease, splenic infarction, perforated viscus, vulvitis, ovarian torsion, PID, kidney stone, placenta abruption, this is not meant to be an all-inclusive list (Bacilio Guzman) Medical Decision Making - Lab Data Result diagrams: 05/25/24 05:11 05/25/24 05:11 <Julio Del Rio - Last Filed: 05/25/24 11:01> - Lab Data Result diagrams: 05/25/24 05:11 05/25/24 05:11 <Bacilio Guzman - Last Filed: 05/28/24 01:56> - Medical Decision Making I was notified by nurse that patient was reluctant to discharge. Patient was evaluated bedside and appeared to be well-appearing. Her charting was reviewed she was found to have glucose of 73. She has had significant bouts of vomiting and had a bicarb of 10 likely secondary to hydrogen loss from emesis. Repeat blood glucose is 60. Patient given dextrose. Patient states that she smokes marijuana daily. Clinical presentation consistent with cannabinoid hyperemesis syndrome. Patient given Haldol monitored in the emergency department. Patient counseled on marijuana use cessation. Patient reevaluated 11:00 AM with significant improvement after correction of hyperglycemia along with small dose of IV Haldol. Patient agreeable for dis charge. Patient able to tolerate oral intake. Told to stop smoking marijuana. (Julio Del Rio) 29 female with the ER with cyclic vomiting syndrome, symptoms improved and vanesa modi can be discharged home (Bacilio Guzman) - Lab Data Lab Results 05/25/24 05/25/24 05/25/24 Range/Units 05:11 05:11 05:11 WBC 7.2 (3.8-10.6) k/uL RBC 4.06 (3.80-5.40) m/uL Hgb 12.7 (11.4-16.0) gm/dL Hct 39.5 (34.0-46.0) % MCV 97.3 (80.0-100.0) fL MCH 31.3 (25.0-35.0) pg MCHC 32.1 (31.0-37.0) g/dL RDW 13.2 (11.5-15.5) % Plt Count 222 (150-450) k/uL MPV 9.6 Neutrophils % 61 % Lymphocytes % 29 % Monocytes % 6 % Eosinophils % 1 % Basophils % 0 % Neutrophils # 4.4 (1.3-7.7) k/uL Lymphocytes # 2.1 (1.0-4.8) k/uL Monocytes # 0.4 (0-1.0) k/uL Eosinophils # 0.1 (0-0.7) k/uL Basophils # 0.0 (0-0.2) k/uL Sodium 137 (137-145) mmol/L Potassium 3.8 (3.5-5.1) mmol/L Chloride 111 H (98-107) mmol/L Carbon Dioxide 10 L (22-30) mmol/L Anion Gap 16 mmol/L BUN 9 (7-17) mg/dL Creatinine 0.59 (0.52-1.04) mg/dL Est GFR (CKD-EPI)AfAm >90 (>60 ml/min/1.73 sqM) Est GFR (CKD-EPI)NonAf >90 (>60 ml/min/1.73 sqM) Glucose 73 L (74-99) mg/dL POC Glucose (mg/dL) (70-110) mg/dL POC Glu Outcomes Analyst ID Plasma Lactic Acid Oc 1.2 (0.7-2.0) mmol/L Calcium 9.3 (8.4-10.2) mg/dL Phosphorus 3.5 (2.5-4.5) mg/dL Magnesium 1.7 (1.6-2.3) mg/dL Total Bilirubin 1.1 (0.2-1.3) mg/dL AST 31 (14-36) U/L ALT 29 (4-34) U/L Alkaline Phosphatase 68 (38-126) U/L Troponin I (0.000-0.034) ng/mL Total Protein 7.0 (6.3-8.2) g/dL Albumin 4.2 (3.5-5.0) g/dL Lipase 51 (23-300) U/L HCG, Quant mIU/mL 05/25/24 05/25/24 05/25/24 Range/Units 05:11 07:54 08:07 WBC (3.8-10.6) k/uL RBC (3.80-5.40) m/uL Hgb (11.4-16.0) gm/dL Hct (34.0-46.0) % MCV (80.0-100.0) fL MCH (25.0-35.0) pg MCHC (31.0-37.0) g/dL RDW (11.5-15.5) % Plt Count (150-450) k/uL MPV Neutrophils % % Lymphocytes % % Monocytes % % Eosinophils % % Basophils % % Neutrophils # (1.3-7.7) k/uL Lymphocytes # (1.0-4.8) k/uL Monocytes # (0-1.0) k/uL Eosinophils # (0-0.7) k/uL Basophils # (0-0.2) k/uL Sodium (137-145) mmol/L Potassium (3.5-5.1) mmol/L Chloride (98-107) mmol/L Carbon Dioxide (22-30) mmol/L Anion Gap mmol/L BUN (7-17) mg/dL Creatinine (0.52-1.04) mg/dL Est GFR (CKD-EPI)AfAm (>60 ml/min/1.73 sqM) Est GFR (CKD-EPI)NonAf (>60 ml/min/1.73 sqM) Glucose (74-99) mg/dL POC Glucose (mg/dL) 60 L (70-110) mg/dL POC Glu Outcomes Analyst ID February Plasma Lactic Acid Oc (0.7-2.0) mmol/L Calcium (8.4-10.2) mg/dL Phosphorus (2.5-4.5) mg/dL Magnesium (1.6-2.3) mg/dL Total Bilirubin (0.2-1.3) mg/dL AST (14-36) U/L ALT (4-34) U/L Alkaline Phosphatase (38-126) U/L Troponin I <0.012 (0.000-0.034) ng/mL Total Protein (6.3-8.2) g/dL Albumin (3.5-5.0) g/dL Lipase (23-300) U/L HCG, Quant <2.4 mIU/mL 05/25/24 Range/Units 08:33 WBC (3.8-10.6) k/uL RBC (3.80-5.40) m/uL Hgb (11.4-16.0) gm/dL Hct (34.0-46.0) % MCV (80.0-100.0) fL MCH (25.0-35.0) pg MCHC (31.0-37.0) g/dL RDW (11.5-15.5) % Plt Count (150-450) k/uL MPV Neutrophils % % Lymphocytes % % Monocytes % % Eosinophils % % Basophils % % Neutrophils # (1.3-7.7) k/uL Lymphocytes # (1.0-4.8) k/uL Monocytes # (0-1.0) k/uL Eosinophils # (0-0.7) k/uL Basophils # (0-0.2) k/uL Sodium (137-145) mmol/L Potassium (3.5-5.1) mmol/L Chloride (98-107) mmol/L Carbon Dioxide (22-30) mmol/L Anion Gap mmol/L BUN (7-17) mg/dL Creatinine (0.52-1.04) mg/dL Est GFR (CKD-EPI)AfAm (>60 ml/min/1.73 sqM) Est GFR (CKD-EPI)NonAf (>60 ml/min/1.73 sqM) Glucose (74-99) mg/dL POC Glucose (mg/dL) 174 H (70-110) mg/dL POC Glu Outcomes Analyst Krys Jacob Plasma Lactic Acid Oc (0.7-2.0) mmol/L Calcium (8.4-10.2) mg/dL Phosphorus (2.5-4.5) mg/dL Magnesium (1.6-2.3) mg/dL Total Bilirubin (0.2-1.3) mg/dL AST (14-36) U/L ALT (4-34) U/L Alkaline Phosphatase (38-126) U/L Troponin I (0.000-0.034) ng/mL Total Protein (6.3-8.2) g/dL Albumin (3.5-5.0) g/dL Lipase (23-300) U/L HCG, Quant mIU/mL Disposition <Julio Del Rio - Last Filed: 05/25/24 11:01> Is patient prescribed a controlled substance at d/c from ED?: No Time of Disposition: 07:00 <Bacilio Guzman - Last Filed: 05/28/24 01:56> Clinical Impression: Nausea & vomiting, Abdominal pain Disposition: HOME SELF-CARE Condition: Fair Instructions (If sedation given, give patient instructions): Acute Nausea and Vomiting (ED), Medicinal Use of Cannabis (ED) Referrals: None,Stated [Primary Care Provider] - 1-2 days
[2024-05-25] MEDS: ONDANSETRON 4 MG/2 ML VIAL IVP STA (05:18)
[2024-05-25] MEDS: KETOROLAC 15 MG/ML 1 ML VIAL IVP STA (05:18)
[2024-05-25] MEDS: METOCLOPRAMIDE 5 MG/ML 2 ML VIAL IVP STA (05:19)
[2024-05-25] MEDS: diphenhydrAMINE 50 MG/ML 1 ML VIAL IVP STA (05:19)
[2024-05-25] MEDS: SODIUM CHLORIDE 0.9% 1,000 ML IV STA (05:20)
[2024-05-25] MEDS: PANTOPRAZOLE 40 MG/10 ML VIAL IV STA (05:20)
[2024-05-25] MEDS: SODIUM CHLORIDE 0.9% 500 ML 500 ML IV STA (05:30)
[2024-05-25 05:35] LABS: Basophils % (A) 0 %; Eosinophils # (A) 0.1 k/uL (0-0.7); Eosinophils % (A) 1 %; HCT 39.5 % (34.0-46.0); HGB 12.7 gm/dL (11.4-16.0); Lymphocytes # (A) 2.1 k/uL (1.0-4.8); Lymphocytes % (A) 29 %; MCH 31.3 pg (25.0-35.0); MCHC 32.1 g/dL (31.0-37.0); MCV 97.3 fL (80.0-100.0); Mean Platelet Volume 9.6; Monocytes # (A) 0.4 k/uL (0-1.0); Monocytes % (A) 6 %; Neutrophils # (A) 4.4 k/uL (1.3-7.7); Neutrophils % (A) 61 %; Platelet Count 222 k/uL (150-450); RBC 4.06 m/uL (3.80-5.40); RDW 13.2 % (11.5-15.5); WBC 7.2 k/uL (3.8-10.6)
[2024-05-25 05:55] LABS: ALT 29 U/L (4-34); AST 31 U/L (14-36); African American GFR (CKD) >90 (>60 ml/min/1.73 sqM); Albumin 4.2 g/dL (3.5-5.0); Alkaline Phosphatase 68 U/L (38-126); Anion Gap 16 mmol/L; Blood Urea Nitrogen 9 mg/dL (7-17); Calcium 9.3 mg/dL (8.4-10.2); Carbon Dioxide 10 mmol/L (22-30); Chloride 111 mmol/L (98-107); Glucose 73 mg/dL (74-99); Lipase 51 U/L (23-300); Magnesium 1.7 mg/dL (1.6-2.3); Non-African American GFR(CKD) >90 (>60 ml/min/1.73 sqM); Phosphorus 3.5 mg/dL (2.5-4.5); Potassium 3.8 mmol/L (3.5-5.1); Sodium 137 mmol/L (137-145); Total Bilirubin 1.1 mg/dL (0.2-1.3)
[2024-05-25 06:54] VITALS: RESP 16
[2024-05-25] MEDS: HYDROmorphone 1 MG/ML 1 ML SYRINGE IVP STA (07:18)
[2024-05-25] MEDS: LORazepam 2 MG/ML INJ IV STA (07:18)
[2024-05-25 07:55] LABS: Glucose,Whole Blood 60 mg/dL (70-110)
[2024-05-25] MEDS: DEXTROSE 50% SYRINGE 50 ML IVP STA (08:00)
[2024-05-25] MEDS: HALOPERIDOL LACTATE 5 MG/ML 1 ML VIAL IVP STA (08:25)
[2024-05-25 08:35] LABS: Glucose,Whole Blood 174 mg/dL (70-110)
[2024-05-25 11:17] VITALS: BP 102/64; PULSE 64
== END 2024-05-25 11:40 | disposition home or self-care (01) ==
LOC: EC 04:56
DX: R11.15 Cyclical vomiting syndrome unrelated to migraine (principal); R10.9 Unspecified abdominal pain; F12.90 Cannabis use, unspecified, uncomplicated
CPT/HCPCS: 99284 ×2; 96374 ×2; 96375 ×7; 96361 ×2; 36415; 80053; 83605; 83690; 83735; 84100; 84484; 85025; 84702; J1200; J1630; J2765; J2405; J1885; J2470

== ENCOUNTER 2024-06-03 15:08 | Emergency (ER) | payer OTHER ==
[2024-06-03 15:12] VITALS: TEMP 97.8
--- NOTE | 2024-06-03 15:21 | ED ---
Abdominal Pain HPI - General Source: patient, family, RN notes reviewed Mode of arrival: wheelchair Limitations: no limitations <Trisha Robbins - Last Filed: 06/03/24 15:18> - General Source: RN notes reviewed <Abbey Walters - Last Filed: 06/03/24 22:45> - General Chief Complaint: Abdominal Pain Stated Complaint: abd pain, vomiting Time Seen by Provider: 06/03/24 15:18 - History of Present Illness Initial Comments: Quick Note: This is a 29-year-old female who presents to the emergency department for abdominal pain. States that it started at approximately 10 AM and is largely in the left upper quadrant. Denies any radiation of pain. She does have associated nausea and vomiting. States that she has been evaluated for the same symptoms several times in the last month, and no specific cause has been identified. (Trisha Robbins) 29-year-old female presenting to the ED for chief complaint of abdominal pain since this morning. States around 10 AM she suddenly began to experience pain in the lower abdomen. Denies radiation of pain. States that pain has sharp in quality and constant. She has associated nausea and vomiting. She has had multiple recent ER visits for same symptoms with no identified cause. She states she has not smoked marijuana since last ER visit. Last menstrual period was 2 days ago. Denies any urinary symptoms. Denies fever or chills. (Abbey Walters) - Related Data Home Medications Medication Instructions Recorded Confirmed No Known Home Medications 06/03/24 06/03/24 Allergies Allergy/AdvReac Type Severity Reaction Status Date / Time No Known Allergies Allergy Verified 06/03/24 20:32 Review of Systems ROS Other: All systems not noted in ROS Statement are negative. <Trisha Robbins - Last Filed: 06/03/24 15:18> ROS Other: All systems not noted in ROS Statement are negative. <Abbey Walters - Last Filed: 06/03/24 22:45> ROS Statement: Those systems with pertinent positive or pertinent negative responses have been documented in the HPI. Past Medical History Past Medical History: No Reported History Additional Past Medical History / Comment(s): back pain History of Any Multi-Drug Resistant Organisms: None Reported Past Surgical History: Section Additional Past Surgical History / Comment(s): D&C Past Psychological History: No Psychological Hx Reported Smoking Status: Never smoker Past Alcohol Use History: Rare Past Drug Use History: Marijuana <Trisha Robbins - Last Filed: 06/03/24 15:18> General Exam Limitations: no limitations <Trisha Robbins - Last Filed: 06/03/24 15:18> General appearance: alert, anxious, other (Patient is very anxious upon examination and continuously kicking and crying from the pain) Head exam: Present: atraumatic, normocephalic, normal inspection Eye exam: Present: normal appearance, PERRL, EOMI. Absent: scleral icterus, conjunctival injection, periorbital swelling Respiratory exam: Present: normal lung sounds bilaterally. Absent: respiratory distress, wheezes, rales, rhonchi, stridor Cardiovascular Exam: Present: regular rate, normal rhythm, normal heart sounds. Absent: systolic murmur, diastolic murmur, rubs, gallop, clicks GI/Abdominal exam: Present: soft, normal bowel sounds. Absent: distended, tenderness, guarding, rebound, rigid Extremities exam: Present: normal inspection, full ROM, normal capillary refill. Absent: tenderness, pedal edema, joint swelling, calf tenderness Neurological exam: Present: alert, oriented X3 Psychiatric exam: Present: normal affect, normal mood Skin exam: Present: warm, dry, intact, normal color. Absent: rash <Abbey Walters - Last Filed: 06/03/24 22:45> - General Exam Comments Initial Comments: Visual Physical Exam Vital signs reviewed General: In acute distress. Head: Normocephalic, atraumatic Eyes: PERRLA, EOMI ENT: Airway patent Chest: Nonlabored breathing Skin: No visual rash, normal skin tone Neuro: Alert and oriented 3 Musculoskeletal: No gross abnormalities (Trisha Robbins) Course Vital Signs 06/03/24 15:10 Temperature 97.8 F Pulse Rate 111 H Respiratory 26 H Rate Blood Pressure 116/71 O2 Sat by Pulse 100 Oximetry Medical Decision Making <Trisha Robbins - Last Filed: 06/03/24 15:18> - Lab Data Result diagrams: 06/03/24 15:56 06/03/24 15:56 <Abbey Walters - Last Filed: 06/03/24 22:45> - Medical Decision Making I performed the QuickNote portion of this chart. Signed Trisha Robbins PA-C. (Trisha Robbins) Was pt. sent in by a medical professional or institution (SUBHASH Strange, CERTIFIED CYTOTECHNOLOGIST, urgent care, hospital, or [facility]...) When possible be specific @ -No Did you speak to anyone other than the patient for history (EMS, parent, family, police, friend...)? What history was obtained from this source @ -No Did you review nursing and triage notes (agree or disagree)? Why? @ -I reviewed and agree with nursing and triage notes Were old charts reviewed (outside hosp., previous admission, EMS record, old EKG, old radiological studies, urgent care reports/EKG's, [facility] records)? Report findings @ -Previous ER visits reviewed Differential Diagnosis (chest pain, altered mental status, abdominal pain women, abdominal pain men, vaginal bleeding, weakness, fever, dyspnea, syncope, headache, dizziness, GI bleed, back pain, seizure, CVA, palpatations, mental health, musculoskeletal)? @ -Differential Abdominal Pain Women: Appendicitis, Cholecystitis, diverticulosis, ischemic bowel, pancreatitis, hepatitis, UTI, gastroenteritis, AAA, incarcerated hernia, bowel obstruction, constipation, inflammatory bowel, hepatitis, peptic ulcer disease, splenic infarction, perforated viscus, vulvitis, ovarian torsion, PID, kidney stone, placenta abruption, this is not meant to be an all-inclusive list EKG interpreted by me (3pts min.). @ -None X-rays interpreted by me (1pt min.). @ -None done CT interpreted by me (1pt min.). @ -None done U/S interpreted by me (1pt. min.). @ -None done What testing was considered but not performed or refused? (CT, X-rays, U/S, labs)? Why? @ -Imaging not performed due to no tenderness and lab work unremarkable What meds were considered but not given or refused? Why? @ -None Did you discuss the management of the patient with other professionals (professionals i.e. SUBHASH Strange, CERTIFIED CYTOTECHNOLOGIST, lab, RT, psych nurse, perinatal social worker, medicine and health service manager, teacher, chief creative officer, rifle case repairer)? Give summary @ -No Was smoking cessation discussed for >3mins.? @ -No Was critical care preformed (if so, how long)? @ -No Were there social determinants of health that impacted care today? How? (Homelessness, low income, unemployed, alcoholism, drug addiction, transportation, low edu. Level, literacy, decrease access to med. care, residential, rehab)? @ -No Was there de-escalation of care discussed even if they declined (Discuss DNR or withdrawal of care, Hospice)? DNR status @ -No What co-morbidities impacted this encounter? (DM, HTN, Smoking, COPD, CAD, Cancer, CVA, ARF, Chemo, Hep., AIDS, mental health diagnosis, sleep apnea, morbid obesity)? @ -None Was patient admitted / discharged? Hospital course, mention meds given and route, prescriptions, significant lab abnormalities, going to OR and other pertinent info. @ -Patient was discharged. Patient was seen and evaluated for abdominal pain since this morning with associated vomiting. Patient has had multiple ER visits recently for same issue and no cause was identified. Initial vital signs are mildly tachycardic at 111 bpm, respiratory rate 26, patient is afebrile. Patient is nontender to palpation to abdomen. Patient was given IV fluids, Zofran, and Dilaudid. Lab work including CBC, CMP, lactic acid, lipase remarkable for CO2 of 17 which is improved from last visit, lactic acid 2.6 which I believe is from dehydration. White blood cell count is 9.1. Her urine reveals moderate blood likely due to current menstrual period. Urine negative. Upon reevaluation, patient states symptoms have completely resolved and feels comfortable with discharge at this time. Discussed close follow-up with PCP for further evaluation, although there does not appear to be an emerg ent etiology causing symptoms upon evaluation today. I was contacted by nurse Liang who reports when he was discharging patient, patient stated that abdominal pain and nausea were returning and she was requesting more pain medications. Patient was given IV Reglan, symptoms improved, and patient was discharged in stable condition. Case was discussed with my ED attending Dr. Oniel. Undiagnosed new problem with uncertain prognosis? @ -No Drug Therapy requiring intensive monitoring for toxicity (Heparin, Nitro, Insulin, Cardizem)? @ -No Were any procedures done? @ -No Diagnosis/symptom? @ -Abdominal pain Acute, or Chronic, or Acute on Chronic? @ -Acute Uncomplicated (without systemic symptoms) or Complicated (systemic symptoms)? @ -Uncomplicated Side effects of treatment? @ -No Exacerbation, Progression, or Severe Exacerbation? @ -No Poses a threat to life or bodily function? How? (Chest pain, USA, ME, pneumonia, PE, COPD, DKA, ARF, appy, cholecystitis, CVA, Diverticulitis, Homicidal, S uicidal, threat to staff... and all critical care pts) @ -Unlikely at this time (Abbey Walters) - Lab Data Lab Results 06/03/24 06/03/24 06/03/24 Range/Units 15:56 15:56 15:56 WBC 9.1 (3.8-10.6) k/uL RBC 4.22 (3.80-5.40) m/uL Hgb 13.5 (11.4-16.0) gm/dL Hct 40.6 (34.0-46.0) % MCV 96.3 (80.0-100.0) fL MCH 32.0 (25.0-35.0) pg MCHC 33.3 (31.0-37.0) g/dL RDW 13.7 (11.5-15.5) % Plt Count 219 (150-450) k/uL MPV 10.2 Neutrophils % 87 % Lymphocytes % 9 % Monocytes % 3 % Eosinophils % 1 % Basophils % 0 % Neutrophils # 7.9 H (1.3-7.7) k/uL Lymphocytes # 0.8 L (1.0-4.8) k/uL Monocytes # 0.3 (0-1.0) k/uL Eosinophils # 0.1 (0-0.7) k/uL Basophils # 0.0 (0-0.2) k/uL Sodium (137-145) mmol/L Potassium (3.5-5.1) mmol/L Chloride (98-107) mmol/L Carbon Dioxide (22-30) mmol/L Anion Gap mmol/L BUN (7-17) mg/dL Creatinine (0.52-1.04) mg/dL Est GFR (CKD-EPI)AfAm (>60 ml/min/1.73 sqM) Est GFR (CKD-EPI)NonAf (>60 ml/min/1.73 sqM) Glucose (74-99) mg/dL Lactic Ac Sepsis Rflx Plasma Lactic Acid Oc (0.7-2.0) mmol/L Calcium (8.4-10.2) mg/dL Total Bilirubin (0.2-1.3) mg/dL AST (14-36) U/L ALT (4-34) U/L Alkaline Phosphatase (38-126) U/L Total Protein (6.3-8.2) g/dL Albumin (3.5-5.0) g/dL Amylase (30-110) U/L Lipase (23-300) U/L Urine Color Colorless Urine Appearance Clear (Clear) Urine pH 8.5 H (5.0-8.0) Ur Specific [place] 1.015 (1.001-1.035) Urine Protein Negative (Negative) Urine Glucose (UA) Negative (Negative) Urine Ketones Trace H (Negative) Urine Blood Moderate H (Negative) Urine Nitrite Negative (Negative) Urine Bilirubin Negative (Negative) Urine Urobilinogen <2.0 (<2.0) mg/dL Ur Leukocyte Esterase Negative (Negative) Urine RBC 1 (0-5) /hpf Urine WBC 1 (0-5) /hpf Ur Squamous Epith Cells 1 (0-4) /hpf Urine Mucus Rare H (None) /hpf Urine HCG, Qual Not Detected (Not Detectd) 06/03/24 06/03/24 06/03/24 Range/Units 15:56 15:56 19:08 WBC (3.8-10.6) k/uL RBC (3.80-5.40) m/uL Hgb (11.4-16.0) gm/dL Hct (34.0-46.0) % MCV (80.0-100.0) fL MCH (25.0-35.0) pg MCHC (31.0-37.0) g/dL RDW (11.5-15.5) % Plt Count (150-450) k/uL MPV Neutrophils % % Lymphocytes % % Monocytes % % Eosinophils % % Basophils % % Neutrophils # (1.3-7.7) k/uL Lymphocytes # (1.0-4.8) k/uL Monocytes # (0-1.0) k/uL Eosinophils # (0-0.7) k/uL Basophils # (0-0.2) k/uL Sodium 141 (137-145) mmol/L Potassium 4.3 (3.5-5.1) mmol/L Chloride 112 H (98-107) mmol/L Carbon Dioxide 17 L (22-30) mmol/L Anion Gap 12 mmol/L BUN 7 (7-17) mg/dL Creatinine 0.56 (0.52-1.04) mg/dL Est GFR (CKD-EPI)AfAm >90 (>60 ml/min/1.73 sqM) Est GFR (CKD-EPI)NonAf >90 (>60 ml/min/1.73 sqM) Glucose 124 H (74-99) mg/dL Lactic Ac Sepsis Rflx Y Plasma Lactic Acid Oc 2.6 H* (0.7-2.0) mmol/L Calcium 10.2 (8.4-10.2) mg/dL Total Bilirubin 0.8 (0.2-1.3) mg/dL AST 27 (14-36) U/L ALT 19 (4-34) U/L Alkaline Phosphatase 62 (38-126) U/L Total Protein 7.8 (6.3-8.2) g/dL Albumin 4.7 (3.5-5.0) g/dL Amylase 53 (30-110) U/L Lipase 39 (23-300) U/L Urine Color Urine Appearance (Clear) Urine pH (5.0-8.0) Ur Specific [place] (1.001-1.035) Urine Protein (Negative) Urine Glucose (UA) (Negative) Urine Ketones (Negative) Urine Blood (Negative) Urine Nitrite (Negative) Urine Bilirubin (Negative) Urine Urobilinogen (<2.0) mg/dL Ur Leukocyte Esterase (Negative) Urine RBC (0-5) /hpf Urine WBC (0-5) /hpf Ur Squamous Epith Cells (0-4) /hpf Urine Mucus (None) /hpf Urine HCG, Qual (Not Detectd) Disposition <Trisha Robbins - Last Filed: 06/03/24 15:18> Is patient prescribed a controlled substance at d/c from ED?: No Time of Disposition: 20:55 <Abbey Walters - Last Filed: 06/03/24 22:45> Clinical Impression: Abdominal pain Disposition: HOME SELF-CARE Condition: Stable Instructions (If sedation given, give patient instructions): Abdominal Pain (ED) Additional Instructions: Follow-up with PCP as discussed. Please return to the Emergency Department if symptoms worsen or any other concerns. Referrals: [facility] [NON-STAFF] - 1-2 days None,Stated [Primary Care Provider] - 1-2 days
[2024-06-03] MEDS: HYDROmorphone 1 MG/ML 1 ML SYRINGE IVP STA (18:17)
[2024-06-03] MEDS: ONDANSETRON 4 MG/2 ML VIAL IVP STA (18:17)
[2024-06-03] MEDS: SODIUM CHLORIDE 0.9% 1,000 ML IV STA (18:17)
[2024-06-03 18:27] LABS: Appearance,Urine Clear (Clear); Bilirubin,Urine Negative (Negative); Blood,Urine Moderate (Negative); Color,Urine Colorless; Glucose,Urine (UA) Negative (Negative); Ketones,Urine Trace (Negative); Leukocyte Esterase,Urine Negative (Negative); Mucus,Urine Rare /hpf; Nitrite,Urine Negative (Negative); PH, Urine 8.5 (5.0-8.0); Protein,Urine Negative (Negative); RBC,Urine 1 /hpf (0-5); Specific Gravity,Urine 1.015 (1.001-1.035); Squamous Epithelial Cell,Urine 1 /hpf (0-4); Urobilinogen,Urine <2.0 mg/dL (<2.0); WBC,Urine 1 /hpf (0-5)
[2024-06-03 18:46] LABS: ALT 19 U/L (4-34); AST 27 U/L (14-36); African American GFR (CKD) >90 (>60 ml/min/1.73 sqM); Albumin 4.7 g/dL (3.5-5.0); Alkaline Phosphatase 62 U/L (38-126); Amylase 53 U/L (30-110); Anion Gap 12 mmol/L; Blood Urea Nitrogen 7 mg/dL (7-17); Calcium 10.2 mg/dL (8.4-10.2); Carbon Dioxide 17 mmol/L (22-30); Chloride 112 mmol/L (98-107); Glucose 124 mg/dL (74-99); Lipase 39 U/L (23-300); Non-African American GFR(CKD) >90 (>60 ml/min/1.73 sqM); Potassium 4.3 mmol/L (3.5-5.1); Sodium 141 mmol/L (137-145); Total Bilirubin 0.8 mg/dL (0.2-1.3); Total Protein 7.8 g/dL (6.3-8.2)
[2024-06-03 18:52] LABS: Basophils % (A) 0 %; Eosinophils # (A) 0.1 k/uL (0-0.7); Eosinophils % (A) 1 %; HCT 40.6 % (34.0-46.0); HGB 13.5 gm/dL (11.4-16.0); Lymphocytes # (A) 0.8 k/uL (1.0-4.8); Lymphocytes % (A) 9 %; MCHC 33.3 g/dL (31.0-37.0); MCV 96.3 fL (80.0-100.0); Mean Platelet Volume 10.2; Monocytes # (A) 0.3 k/uL (0-1.0); Monocytes % (A) 3 %; Neutrophils # (A) 7.9 k/uL (1.3-7.7); Neutrophils % (A) 87 %; Platelet Count 219 k/uL (150-450); RBC 4.22 m/uL (3.80-5.40); RDW 13.7 % (11.5-15.5); WBC 9.1 k/uL (3.8-10.6)
[2024-06-03] MEDS: METOCLOPRAMIDE 5 MG/ML 2 ML VIAL IVP STA (22:31)
[2024-06-03 22:40] VITALS: BP 102/78; PULSE 88; RESP 20
== END 2024-06-03 22:45 | disposition home or self-care (01) ==
LOC: EC 15:08
DX: R10.12 Left upper quadrant pain (principal); R10.30 Lower abdominal pain, unspecified
CPT/HCPCS: 36415; 80053; 82150; 83605; 83690; 85025; 81001; 81025; 99284; 96374; 96375 ×2; 96361; J2765; J2405; J1170

== ENCOUNTER 2024-11-13 06:45 | Day surgery (SDC) | payer OTHER ==
[2024-11-09 12:31] VITALS: BMI 24.8
[~2024-11-13 06:45] MED LIST: LACTATED RINGERS 1,000 ML IV SCH
[2024-11-13 07:14] VITALS: RESP 16; TEMP 96.8
[2024-11-13] MEDS: SODIUM CHLORIDE 0.9% 1,000 ML IV ONE (07:23)
[2024-11-13] MEDS ORDERED: PROPOFOL 10 MG/ML 20 ML VIAL IV ONE (07:39)
[2024-11-13] MEDS ORDERED: LIDOCAINE 1% INJ 10MG/ML (20 ML MDV) ONE (07:39)
[2024-11-13] MEDS ORDERED: MIDAZOLAM 2 MG/2 ML VIAL ONE (07:39)
--- NOTE | 2024-11-13 08:15 | P.PCN ---
Date of Procedure: 11/13/24 Procedure(s) Performed: Brief history: Patient is a pleasant 29-year-old -[place] female scheduled for an elective upper endoscopy as well as colonoscopy as a part of evaluation of abdominal pain, change in bowel habits and progressive weight loss of 20 pounds in the last 6 months duration Procedure performed: Esophagogastroduodenoscopy with biopsy Colonoscopy snare polypectomy Preoperative diagnosis: Abdominal pain and change in bowel habits Recent weight loss Anesthesia: MAC Procedure: After informed consent was obtained from the patient was brought into the endoscopy unit and IV sedation was administered by anesthesia under continuous monitoring. Initially upper endoscopy was done. The Olympus GF 160 video endoscope was inserted inserted into the mouth and esophagus intubated without any difficulty and was gradually advanced into the stomach and duodenum and carefully examined. The bulb and second part of the duodenum appeared normal. Biopsies were done from the duodenum rule out celiac disease. The scope was then withdrawn into the stomach adequately insufflated with air and upon careful examination the antrum had mild gastritis and biopsies were done from this area. Mucosa body, cardia and fundus appeared normal. The scope was then withdrawn into the esophagus. The GE junction was located at 40 cm to the incisors. It appeared regular with no erythema erosions or ulcerations. Rest of the esophagus appeared normal. Patient tolerated the procedure well. At this time the patient continued to remain sedation. Initial digital rectal examination was normal. Olympus CF 160 video colonoscope was then inserted into the rectum and gradually advanced to the cecum without any difficulty. Careful examination was performed as the scope was gradually being withdrawn. The prep was excellent. The cecum, ascending colon, transverse colon, appeared normal. The descending colon there was a 1 cm polyp removed by hot snare polypectomy. Rest of the descending colon, sigmoid colon and rectum appeared normal. Retroflexion was performed in the rectum and no lesions were noted. Patient tolerated the procedure well. Impression: 1. Upper endoscopy revealed mild antral gastritis but no evidence of esophagitis or peptic ulcer disease 2. Colonoscopy revealed a 1 cm descending colon polyp status post hot snare polypectomy. Rest of the colon appeared normal Recommendations: Findings of this examination were discussed with the patient as well as her fami ly. She was advised to follow-up with the biopsy results. If the biopsy reveals adenoma she can have repeat colonoscopy 3 years. In the office in 2 weeks.
[2024-11-13] MEDS: ONDANSETRON 4 MG/2 ML VIAL IVP STA (08:38)
[2024-11-13] MEDS: KETOROLAC 15 MG/ML 1 ML VIAL IVP STA (09:02)
[2024-11-13 09:15] VITALS: BP 118/74; PULSE 68
== END 2024-11-13 10:05 | disposition home or self-care (01) ==
LOC: ORWHC2ENDO 06:45
PROVIDERS: ATTEND Internal Medicine Gastroenterology
DX: D12.4 Benign neoplasm of descending colon (principal); K29.50 Unspecified chronic gastritis without bleeding; K21.9 Gastro-esophageal reflux disease without esophagitis; F12.90 Cannabis use, unspecified, uncomplicated; Z79.899 Other long term (current) drug therapy; Z98.890 Other specified postprocedural states
CPT/HCPCS: 81025; 88305; 45385; 43239; J2250; J2405; J2003; J1885; J2704